=== PATIENT | female | born 1935 | race Caucasian/White ===

== ENCOUNTER 2018-09-17 09:23 | Inpatient (IN) | payer MEDICARE, BC ==
[2018-09-17] MEDS ORDERED: NS 0.9% 1000 ML* 1,000 ML IV ONE (09:54)
--- NOTE | 2018-09-17 10:02 | ED ---
Shortness of Breath - HPI Summary HPI Summary: This patient is a 83 year old female presenting to [facility] accompanied by family with a chief complaint of SOB since 2 weeks ago. Patient states that she feels fine when sitting down, but after walking for a little while, she starts having symptoms. On rest, the symptoms take 3-4 minutes to subside, but start again with exertion. The sensation is described as a fullness/tightness in chest, rather than a pain. The pain is rated 0/10 in severity. Symptoms aggravated by exertion/ambulation. Symptoms alleviated by nothing. Patient additionally reports bouts of nausea, fatigue. Patient denies vomiting, abd pain. Patient denies a hx of atrial fibrillation. - History of Current Complaint Chief Complaint: EDShortnessOfBreath Time Seen by Provider: 09/17/18 09:40 Hx Obtained From: Patient Onset/Duration: Gradual Onset, Still Present Timing: Constant Current Severity: None Dyspnea At: Exertion Aggrevating Factors: Other - exertion/ambulation Alleviating Factors: Nothing Associated Signs & Symptoms: Negative - vomiting, abd pain - Allergy/Home Medications Allergies/Adverse Reactions: Allergies Allergy/AdvReac Type Severity Reaction Status Date / Time lisinopril Allergy Unknown Verified 09/17/18 09:26 Reaction Details Home Medications: Home Medications Allopurinol 100 mg PO DAILY 09/17/18 [History Confirmed 09/17/18] Aspirin 81 mg CHEW TAB* [Aspirin Low Dose TAB*] 81 mg PO DAILY 09/17/18 [ History Confirmed 09/17/18] Atorvastatin* [Lipitor*] 40 mg PO 2100 09/17/18 [History Confirmed 09/17/18] Citalopram TAB* [CeleXA TAB*] 20 mg PO DAILY 09/17/18 [History Confirmed ] Irbesartan (NF) [Avapro (NF)] 300 mg PO DAILY 09/17/18 [History Confirmed ] Levothyroxine TAB* [Synthroid TAB*] 100 mcg PO DAILY 09/17/18 [History Confirmed 09/17/18] Metformin HCl [Metformin HCl ER] 500 mg PO BID 09/17/18 [History Confirmed 09/17] Metoprolol Succinate XL TAB* [Toprol XL TAB*] 50 mg PO DAILY 09/17/18 [History Confirmed 09/17/18] Terazosin CAP* [Hytrin CAP*] 5 mg PO BEDTIME 09/17/18 [History Confirmed ] PMH/Surg Hx/FS Hx/Imm Hx Previously Healthy: No Endocrine/Hematology History: Reports: Hx Diabetes - NIDDM, Hx Thyroid Disease - hypothyroid, Hx Anemia - HX OF Cardiovascular History: Reports: Hx Coronary Artery Disease - [address], Hx Hypertension, Other Cardiovascular Problems/Disorders - DIABETES Denies: Hx Pacemaker/ICD History: Reports: Hx Renal Disease - abnormal gfr Denies: Hx Dialysis Musculoskeletal History: Reports: Hx Arthritis - KNEES Sensory History: Reports: Hx Contacts or Glasses Denies: Hx Hearing Aid Opthamlomology History: Reports: Hx Contacts or Glasses Psychiatric History: Reports: Hx Depression Denies: Hx Panic Disorder - Surgical History Surgery Procedure, Year, and Place: CARDIAC STENT PT DOES NOT HAVE IMPLANT CARD. 1.5 ARTUR MAGNET. HYSTERECTOMY. L4L5 laminectory 2014 Hx Anesthesia Reactions: No Infectious Disease History: No Infectious Disease History: Denies: Traveled Outside the [place] in Last 30 Days - Family History Known Family History: Positive: Hypertension - Social History Lives: With Family Alcohol Use: None Hx Substance Use: No Substance Use Type: Reports: None Hx Tobacco Use: No Smoking Status (MU): Never Smoked Tobacco Review of Systems Positive: Fatigue. Negative: Fever Positive: Other - chest tightness Positive: Shortness Of Breath Positive: Nausea. Negative: Abdominal Pain, Vomiting All Other Systems Reviewed And Are Negative: Yes Physical Exam - Summary Physical Exam Summary: VITAL SIGNS: Reviewed. GENERAL: Patient is an obese female who is lying comfortable in the stretcher. Patient is not in any acute respiratory distress. HEAD AND FACE: No signs of trauma. No ecchymosis, hematomas or skull depressions. No sinus tenderness. EYES: PERRLA, EOMI x 2, No injected conjunctiva, no nystagmus. EARS: Hearing grossly intact. Ear canals and tympanic membranes are within normal limits. MOUTH: Oropharynx within normal limits. NECK: Supple, trachea is midline, no adenopathy, no JVD, no carotid bruit, no c- spine tenderness, neck with full ROM. CHEST: Symmetric, no tenderness at palpation LUNGS: Clear to auscultation bilaterally. No wheezing or crackles. CVS: Irregular rate and rhythm with tachycardia, S1 and S2 present. ABDOMEN: Soft, non-tender. No signs of distention. No rebound no guarding, and no masses palpated. Bowel sounds are normal. EXTREMITIES: FROM in all major joints, no edema, no cyanosis or clubbing. NEURO: Alert and oriented x 3. No acute neurological deficits. Speech is normal and follows commands. SKIN: Dry and warm Triage Information Reviewed: Yes Vital Signs On Initial Exam: Initial Vitals Temp Pulse Resp BP Pulse Ox 99 F 157 21 162/108 95 09/17/18 09:30 09/17/18 09:30 09/17/18 09:30 09/17/18 09:30 09/17/18 09:30 Vital Signs Reviewed: Yes Diagnostics - Vital Signs Vital Signs Temp Pulse Resp BP Pulse Ox 09/17/18 09:30 99 F 157 21 162/108 95 - Laboratory Result Diagrams: 09/17/18 09:44 09/17/18 09:44 Lab Statement: Any lab studies that have been ordered have been reviewed, and results considered in the medical decision making process. - Radiology CXR Radiology Interpretation Completed By: Radiologist Summary of Radiographic Findings: CXR reveals, per radiologist, IMPRESSION: CARDIOMEGALY. ED physician has reviewed this radiology report. - EKG 0936 Cardiac Rate: Tachycardia EKG Rhythm: Atrial Fibrillation - 152 BPM Summary of EKG Findings: A fib (152 BPM) with RBR. 0950 Cardiac Rate: Tachycardia EKG Rhythm: Atrial Fibrillation - 153 BPM Summary of EKG Findings: A fib (153 BPM) with RBR. Course/Dx - Course Assessment/Plan: This patient is a 83 year old female presenting to [facility] accompanied by family with a chief complaint of SOB since 2 weeks ago. Patient states that she feels fine when sitting down, but after walking for a little while, she starts having symptoms. On rest, the symptoms take 3-4 minutes to subside, but start again with exertion. The sensation is described as a fullness /tightness in chest, rather than a pain. The pain is rated 0/10 in severity. Symptoms aggravated by exertion/ambulation. Symptoms alleviated by nothing. Patient additionally reports bouts of nausea, fatigue. Patient denies vomiting, abd pain. Patient denies a hx of atrial fibrillation. Blood work without any significant abnormality except for microcytic hypochromic anemia, creatinine of 1.21, possibly due to dehydration, glucose of 118, lactic acid is 2.1, BNP 181, and TSH of 11.40. In the ED course the patient was given IV fluids, she was given Cardizem 20 mg bolus and the heart rate decreased however it went right back up. Therefore the patient was placed in a Cardizem drip. The patient at this time is more hemodynamically stable and she is alert and oriented 3. I discuss my physical exam, findings and test results with Dr. East from the hospitalist services and he agrees to admit patient to his services. Patient is hemodynamically stable alert and oriented x 3. - Diagnoses Differential Diagnosis/HQI/PQRI: Positive: Bronchitis, CHF, Chest Wall Pain, PR , Pneumonia, Other - SVT, atrial fibrillation, atrial flutter Provider Diagnoses: Atrial fibrillation with RVR Discharge - Sign-Out/Discharge Documenting (check all that apply): Patient Departure - Discharge Plan Condition: Stable Disposition: ADMITTED TO [facility] - Billing Disposition and Condition Condition: STABLE Disposition: Admitted to [facility] - Attestation Statements Document Initiated by Scribe: Yes Documenting Scribe: Estefani Murray Provider For Whom Elenie is Documenting (Include Credential): Semaj Richardson MD Scribe Attestation: I, Estefani Murray, scribed for Semaj Richardson MD on 09/17/18 at 1849. Scribe Documentation Reviewed: Yes Provider Attestation: The documentation as recorded by the Estefani parks accurately reflects the service I personally performed and the decisions made by me, Semaj Richardson MD
[2018-09-17] MEDS: Diltiazem IV* 5 MG/ML 5 ML VIAL (for loading dose/IV Push) (25 MG) IV SLOW PU ONE ×2 (10:03→10:11)
--- OUTSIDE RECORDS SUMMARY | 2018-09-17 10:05 | XMS REPORT | Continuity of Care Document ---
:1935 External Reference #:[id number] Author Name Sarah Maya O.D. Address [address] [place] [address] Care Team Providers Name Role Phone Kathy Forde M.D. Primary Care Physician Unavailable Payers Type Date Identification Numbers Payment Provider Subscriber Effective: Policy Number: [id number] Medicare - NGS Elvia Madison 2000 PayID: [id number] [address] [facility] [place] [address] Policy Number: [id number] [facility] Elvia Madison Group Number: [id number] [address] [address] PayID: [id number] YARITZA Mensah [address] Advance Directives Description No Information Available Problems Date Description Provider Status Onset: Type 2 diabetes mellitus Active Onset: Essential hypertension Active Onset: Hypercholesterolemia Active Onset: 09/10/2018 Nuclear senile cataract Sarah Maya O.D. Active Family History Date Family Member(s) Problem(s) Comments Father No Current Problems Mother No Current Problems Social History Type Date Description Comments Sex Unknown Marital Status Legal Status: Work Status Retired ETOH Use Denies alcohol use Tobacco Use Start: Unknown Patient has never smoked Recreational Drug Use Denies Drug Use Smoking Status Reviewed: 09/10/18 Patient has never smoked Allergies, Adverse Reactions, Alerts Description No Known Drug Allergies Medications Medication Date Status Form Strength Qnty SIG Indications Ordering Provider Allopurinol / Active Tablets 100mg Take One Unknown 0000 Tablet By Mouth Every Day Atorvastatin / Active Tablets 40mg Take One Unknown Calcium 0000 Tablet By Mouth Every Day Levothyroxine / Active Tablets 100mcg Take One Unknown Sodium 0000 Tablet By Mouth Every Day Irbesartan / Active Tablets 300mg Take One Unknown 0000 Tablet By Mouth Every Day Replaces Valsartan HCTZ Citalopram / Active Tablets 20mg Take One Unknown Hydrobromide 0000 Half Tablet By Mouth Every Day Metoprolol / Active Tablets ER 50mg Take One Unknown Succinate ER 0000 24HR Tablet By Mouth Every Day Terazosin HCL / Active Capsules 5mg Take One Unknown 0000 Capsule By Mouth Every Day Metformin HCL / Active Tablets 500mg Unknown 0000 Aspir-81 / Active Tablets DR 81mg 1 by mouth Unknown 0000 every other day Vitamin C / Active Capsules 500mg 1 by mouth Unknown 0000 every day Tylenol / Active Tablets 325mg as needed Unknown 0000 Immunizations Description No Information Available Vital Signs Description No Information Available Results Description No Information Available Procedures Description No Information Available Encounters Description No Information Available Plan of Treatment 09/10/2018 - Sarah Maya O.D.H25.13 Age-related nuclear cataract, bilateralComments:Smoking can increase the risk of developing or worsening any eye related disease, as well as affect your overall health. If you are a smoker , we strongly recommend that you quit.If you are not a smoker, we strongly recommend that you do not start. You have been diagnosed with cataracts. They are limiting your vision, and I am unable to improve your vision with new glasses. I am recommending you schedule cataract surgery at your earliest convenience. Please speak with Parris Spangler at to set up all necessary appointments. Parris Spangler will set up a preoperative appointment to get all of your measurements for surgery. We recommend that you write down any questions you may have so Dr. Meier or Dr. Black can address them at this appointment.Follow up:For preop exam before surgery.E11.9 Type 2 diabetes mellitus without complicationsComments:You have diabetes. I do not detect any changes in both of your retinas from diabetes at this time. Proper control of your diabetes is important for the health of your eyes. Changes in your eyes from diabetes can happen without symptoms, so it is important that you have your eyes examined.
[2018-09-17 10:15] LABS: ABS Basophils 0 10^3/ul (0-0.2); ABS Eosinophils 0.1 10^3/ul (0-0.6); ABS Lymphocytes 0.9 10^3/ul (1.0-4.8); ABS Monocytes 0.3 10^3/ul (0-0.8); ABS Neutrophils 3.7 10^3/ul (1.5-7.7); ABS Nucleated RBC 0 10^3/ul; Eosinophil % 2.2 % (0-6); Hematocrit 32 % (35-47); Hemoglobin 9.9 g/dl (12.0-16.0); Lymphocyte % 18.3 % (25-47); Mean Corpuscular HGB Conc 31 g/dl (31-36); Mean Corpuscular Hemoglobin 20 pg (27-31); Mean Corpuscular Volume 64 fL (80-97); Mean Platelet Volume 8.6 fL (7.4-10.4); Nucleated Red Blood Cells % 0.1; Platelet Count 176 10^3/ul (150-450); Red Blood Count 4.97 10^6/ul (4.00-5.40); Red Cell Distribution Width 20 % (10.5-15)
[2018-09-17 10:19] LABS: INR 1.01 (0.77-1.02)
[2018-09-17] MEDS ORDERED: Diltiazem DRIP* 100 MG/100 ML ADDV.BAG IVPB ONE (10:20)
[2018-09-17 10:27] LABS: EGFR Non-African American 42.5 (>60)
[2018-09-17] MEDS ORDERED: Furosemide IV* 10 MG/ML VIAL (40 MG) IV ONE (12:34)
[2018-09-17] MEDS ORDERED: Diltiazem IV VIAL* 125 MG in NS 0.9% 100 ML* 100 ML IV SCH (13:00)
[2018-09-17] MEDS: Apixaban* 5 MG TAB PO SCH ×2 (15:15→19:32)
[2018-09-17] MEDS: Metoprolol Tartrate TAB* 25 MG PO SCH ×2 (15:15→19:32)
--- NOTE | 2018-09-17 15:35 | HP ---
CC: Dr. Forde.* HISTORY AND PHYSICAL: DATE OF ADMISSION: 09/17/18. PRIMARY CARE PROVIDER: Dr. Forde. CHIEF COMPLAINT: Shortness of breath and chest tightness. HISTORY OF PRESENT ILLNESS: Ms. Madison is an 83-year-old female who has a history of coronary artery disease, hypertension, type 2 diabetes, who presented to the emergency room with complaints of shortness of breath and chest tightness. The patient states symptoms began approximately 2 weeks ago. She began to feel short of breath and fatigue. Additionally, her family noted that she has been having intermittent episodes of nausea. She has also been dizzy upon standing up. Initially the report was that the patient was feeling palpitation; however, in speaking with her she cannot feel her heart racing or fluttering, but feels the tightness off and on in her chest. She states she has felt this over the last few weeks as well. She states that she has not noticed her lower extremities be swollen any more than usual; however, her [id number] has. PAST MEDICAL HISTORY: 1. Coronary artery disease. 2. Hypertension. 3. OA. 4. Rosacea. 5. Type 2 diabetes. 6. Gout. PAST SURGICAL HISTORY: 1. Hysterectomy. 2. Appendectomy. 3. Lumbar diskectomy.. MEDICATIONS: 1. Metoprolol XL 50 mg p.o. daily. 2. Levothyroxine 75 mcg p.o. daily. 3. Lipitor 40 mg p.o. q.h.s. 4. Aspirin 81 mg p.o. daily. 5. Metformin 1000 mg p.o. b.i.d. 6. Valsartan/hydrochlorothiazide 320/12.5 one tablet p.o. daily. 7. Terazosin 5 mg p.o. q.h.s. 8. Omeprazole 20 mg p.o. daily. 9. Ibuprofen 600 mg p.o. q.6 hours p.r.n. pain. 10. Gabapentin 300 mg p.o. q.h.s. 11. Celexa 10 mg p.o. q.h.s. 12. Bumex 0.5 mg p.o. daily. ALLERGIES: LISINOPRIL causes cough. FAMILY HISTORY: Mom at age of 85, she had Parkinson's. Dad at the age of 55, he had an NE. Patient had 3 sisters and 1 brother all of who are from cancer. SOCIAL HISTORY: Patient is a lifelong nonsmoker. She drinks alcohol rarely. 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 She is . She has 5 children. She indicates that her [id number], Lavern Nielson, would be her healthcare proxy. REVIEW OF SYSTEMS: A complete 11-system review of systems is obtained. Pertinent positives and negatives are as per HPI. In addition patient denies any hematochezia or hematuria. She does however admit to depression. PHYSICAL EXAMINATION GENERAL: The patient is a well-developed, elderly female, seen sitting up in the stretcher in no acute distress. VITAL SIGNS: Blood pressure 121/93, pulse 143, respirations 34, temp 99, O2 sat 96% on 2 L. HEENT: Pupils are equal and round. Extraocular muscles are intact. Oropharynx is clear. Oral mucosa is moist. The patient wears upper and lower dentures. There is no submandibular, cervical, or supraclavicular adenopathy. PULMONARY: Breath sounds are clear throughout, but markedly diminished. CARDIAC: Normal S1 and S2. Heart rate is irregularly regular and tachycardic. There is 1+ bilateral lower extremity pitting edema. ABDOMEN: Bowel sounds are present. Abdomen is obese, soft, nontender, nondistended. MUSCULOSKELETAL: There is no cyanosis or clubbing of the digits. There is full active range of motion of all 4 extremities. NEURO: Cranial nerves II through XII are grossly intact. Sensation is intact to light touch throughout. Strength is 5/5 and symmetric both upper and lower extremities bilaterally. SKIN: Warm and dry. There are no rashes. PSYCH: The patient is alert. She is oriented x3. Affect appears appropriate. DIAGNOSTIC STUDIES/LAB DATA: WBC 5.0, hemoglobin 9.9, hematocrit 32, platelets 176. INR 1.01. Sodium 140, potassium 4.1, chloride 107, CO2 25, BUN 19, creatinine 1.21, glucose 118, lactic acid 2.1, calcium 9.5, magnesium 2.2, bilirubin 0.9, AST 13, ALT 10, alk phos 129. CPK 30. CKMB 1.7. Troponin 0.03. BNP 181. Albumin 3.9. TSH 11.4. EKG reveals atrial fibrillation with rapid ventricular response. Chest x-ray reveals cardiomegaly. ASSESSMENT AND PLAN: Ms. Madison is an 83-year-old female who has a history of coronary artery disease, hypertension and type 2 diabetes, who presents to the emergency room with complaints of shortness of breath and chest tightness. The patient was ultimately found to be in a rapid atrial fibrillation and likely congestive heart failure secondary to that. 1. Atrial fibrillation with rapid ventricular response. The patient is currently on a diltiazem drip at 15 mg/hour in the emergency room. This unfortunately has not controlled her heart rate. The patient does take metoprolol XL 50 mg daily at home. I am going to change this to metoprolol tartrate 25 mg p.o. q.8 hours. The patient will be attempted to be managed on this regimen; however, if her heart rate fails to come under control, we will likely request cardiology consultation for further guidance. A transthoracic echocardiogram will be obtained to evaluate the patient's ejection fraction. I will get a D-dimer and if negative this would have essentially ruled out PE; however, if positive, we will likely need a CTA of the chest to rule out PE as a cause of patient's AFib. Also of note, the patient's TSH is elevated at 11.4. I am adding on a free T4 to the labs drawn in the emergency room. After discussion of the risks and benefit of Coumadin versus Eliquis, at this point, the patient has elected to be initiated on Eliquis 5 mg twice daily. 2. Shortness of breath. I suspect this is secondary to congestive heart failure. The patient clearly has lower extremity edema. Her breath sounds are diminished throughout. As above the transthoracic echocardiogram will be obtained tomorrow. I am going to administer Lasix 40 mg IV x1 now. I am going to hold the patient's Bumex that she takes at home. Decision will need to be made tomorrow morning about whether or not IV diuretic will be continued. I questioned if she may have developed tachycardia induced cardiomyopathy. 3. Coronary artery disease. The patient does complain of chest tightness. I suspect this is related to her rapid AFib and likely CHF. The patient will need follow up troponins and EKG 3 hours after the initial. The patient will however be maintained on her usual dose of aspirin and Lipitor. 4. Hypertension. The patient's blood pressure is currently under good control. We will need to monitor her blood pressure with the addition of the diltiazem drip. I am going to continue her valsartan but hold her hydrochlorothiazide. In case, we need to go up on her metoprolol or other rate controlling agents. 5. Type 2 diabetes. The patient will be maintained on her usual dose of metformin. Lispro sliding scale and glucose as a.c., h.s. will be ordered. 6. Gout. The patient's family reports she has been on a medication as suppressant for this. This is not on her home medication list. I suspect, however, based on outside pharmacy records that it is in fact allopurinol 100 mg p.o. daily. 7. DVT prophylaxis. According to the Adult Thrombosis Risk Factor Assessment Guide, the patient has a total risk factor score of 5 making her highest risk. She will be placed on Eliquis 5 mg twice daily for her rapid AFib and this will act as her DVT prophylaxis. 8. Code status is DNR. TIME SPENT: Sixty-five minutes was spent admitting this patient. [id number]/[facility] #: [id number] AGUILA
[2018-09-17] MEDS ORDERED: Diltiazem DRIP* 100 MG/100 ML ADDV.BAG IVPB SCH (17:00)
[2018-09-17] MEDS: Atorvastatin* 40 MG TAB PO SCH (17:42)
[2018-09-17] MEDS ORDERED: CITALOPRAM HYDROBROMIDE 10 MG PO SCH (18:00)
[2018-09-17] MEDS: metFORMIN* 500 MG TAB PO SCH (19:32)
[2018-09-17] MEDS: Terazosin CAP* 5 MG PO SCH ×2 (19:33→19:56)
[2018-09-17] MEDS ORDERED: metFORMIN* 500 MG TAB PO SCH (21:00)
[2018-09-17] MEDS ORDERED: Gabapentin CAP(*) 300 MG PO SCH (21:00)
[2018-09-17 21:58] LABS: Urine Appearance Cloudy; Urine Blood 1+ (Negative); Urine Color Straw; Urine Ketones Negative (Negative); Urine Protein Negative (Negative); Urine Red Blood Cell 1+(3-5/hpf) (Absent); Urine Specific Gravity 1.006 (1.010-1.030); Urine Urobilinogen Negative (Negative); Urine White Blood Cell 3+(>20/hpf) (Absent)
[2018-09-17] MEDS: Melatonin 3 MG TAB PO SCH (23:49)
[2018-09-18] MEDS: Levothyroxine TAB* 100 MCG TAB PO SCH (04:53)
[2018-09-18] MEDS: Metoprolol Tartrate TAB* 25 MG PO SCH (04:55)
[2018-09-18] MEDS ORDERED: Omeprazole CAP* 20 MG PO SCH (07:30)
[2018-09-18] MEDS ORDERED: Levothyroxine TAB* 75 MCG TAB PO SCH (08:00)
[2018-09-18] MEDS ORDERED: Valsartan/HCTZ 320/12.5(NF) TAB PO SCH (09:00)
[2018-09-18] MEDS: Losartan TAB* 25 MG PO SCH (09:27)
[2018-09-18] MEDS: metFORMIN* 500 MG TAB PO SCH ×2 (09:28→20:58)
[2018-09-18] MEDS: Citalopram TAB* 20 MG PO SCH (09:28)
[2018-09-18] MEDS: Aspirin EC TAB* 81 MG TAB.EC PO SCH (09:28)
[2018-09-18] MEDS: Apixaban* 5 MG TAB PO SCH ×2 (09:28→20:58)
--- NOTE | 2018-09-18 12:19 | PN ---
Subjective Date of Service: 09/18/18 Interval History: Patient seen and examined. States she feels SOB still and pressure with inspiration across the front of her chest. Denies dizziness, no fevers or chills. Remains on O2 for comfort. Objective Active Medications: Apixaban (Eliquis*) 5 mg PO BID [facility] Last Admin: 09/18/18 09:28 Dose: 5 mg Aspirin (Aspirin Ec Tab*) 81 mg PO DAILY [facility] Last Admin: 09/18/18 09:28 Dose: 81 mg Atorvastatin Calcium (Lipitor*) 40 mg PO 1700 [facility] Last Admin: 09/17/18 17:42 Dose: 40 mg Citalopram Hydrobromide (Celexa Tab*) 20 mg PO DAILY [facility] Last Admin: 09/18/18 09:28 Dose: 20 mg Levothyroxine Sodium (Synthroid Tab*) 100 mcg PO DAILY@0600 [facility] Last Admin: 09/18/18 04:53 Dose: 100 mcg Losartan Potassium (Cozaar Tab*) 100 mg PO DAILY [facility] Last Admin: 09/18/18 09:27 Dose: 100 mg Melatonin (Melatonin) 3 mg PO BEDTIME [facility] Last Admin: 09/17/18 23:49 Dose: 3 mg Metformin HCl (Glucophage*) 500 mg PO BID [facility] Last Admin: 09/18/18 09:28 Dose: 500 mg Metoprolol Tartrate (Lopressor Tab*) 25 mg PO Q8H [facility] Last Admin: 09/18/18 04:55 Dose: 25 mg Terazosin HCl (Hytrin Cap*) 5 mg PO BEDTIME [facility] Last Admin: 09/17/18 19:56 Dose: Not Given Vital Signs - 8 hr 09/18/18 09/18/18 07:16 08:28 Temperature 98.1 F Pulse Rate 71 Respiratory 20 20 Rate Blood Pressure 104/66 (mmHg) O2 Sat by Pulse 100 Oximetry Oxygen Devices in Use Now: Nasal Cannula Appearance: alert, appears anxious Eyes: No Scleral Icterus, PERRLA Ears/Nose/Mouth/Throat: Mucous Membranes Moist Neck: NL Appearance and Movements; NL JVP, Trachea Midline Respiratory: - - diminished, mild ex wheeze, no rhonchi, moderate rales Abdominal: NL Sounds; No Tenderness; No Distention Lymphatic: No Cervical Adenopathy Extremities: No Clubbing, Cyanosis, - - bilat edema LE Skin: No Rash or Ulcers Neurological: Alert and Oriented x 3, NL Sensation Nutrition: Taking PO's Result Diagrams: 09/17/18 09:44 09/17/18 09:44 Diagnostic Imaging: Patient Name: ALDO SAHU Medical Record#: [id number] Ordering Physician: Semaj Richardson MD Acct.#: [id number] : 1935 Age: 83 Sex: F Location: EMERGENCY DEPARTMENT Exam Date: 09/17/18949 ADM Status: REG ER Order Information: CHEST AP PORTABLE Accession Number: [id number] CPT: 75909 HISTORY: SOB, CP COMPARISONS: March 22, 2014 VIEWS: 1: frontal AP view of the chest at 10:10 AM FINDINGS: LINES AND TUBES: None. CARDIOMEDIASTINAL SILHOUETTE: The cardiac silhouette is enlarged. The cardiomediastinal silhouette is otherwise normal for portable technique. PLEURA: The costophrenic angles are sharp. No pleural abnormalities are noted. LUNG PARENCHYMA: The lungs are clear. ABDOMEN: The upper abdomen is clear. There is no subphrenic gas. BONES AND SOFT TISSUES: No bone or soft tissue abnormalities are noted. IMPRESSION: CARDIOMEGALY <Electronically signed by Tato Ortiz MD in [place]> 09/17/181016 Dictated By: Tato Ortiz MD Dictated Date/Time: 09/17/181016 Transcribed Date/Time: 09/17/181016 Copy to: Assess/Plan/Problems-Billing Assessment: This is an 83 year old female with history CAD, HTN, DMII, gout and OA that presented to the ED with complaint of palpitations and SOB, found to be in afib with RVR and acute HF. - Patient Problems (1) Atrial fibrillation with rapid ventricular response Code(s): I48.91 - UNSPECIFIED ATRIAL FIBRILLATION SNOMED Code(s): 259163827829028 Comment: - Off cardizem drip last night, was rate controlled but BP was low - BB does not seem to be helping, as rate is increased again today 110s-120s - Will try cardizem 60mg q6h, as cardizem did seem to help with rate control yesterday - Pending ECHO, consider cardiology consult if any further findings or issues - Continue O2 and tele (2) Congestive heart failure Code(s): I50.9 - HEART FAILURE, UNSPECIFIED SNOMED Code(s): 02681952 Comment: - Diuresing with lasix - Strict I&Os - ECHO (3) History of coronary artery disease Code(s): Z86.79 - PERSONAL HISTORY OF OTHER DISEASES OF THE CIRCULATORY SYSTEM SNOMED Code(s): 964510825 Comment: - Likely the cause of her afib/failure - Pending ECHO, may need stress test tomorrow (4) Osteoarthritis Code(s): M19.90 - UNSPECIFIED OSTEOARTHRITIS, UNSPECIFIED SITE SNOMED Code(s) : 767795303 (5) DVT prophylaxis Code(s): MJO9717 - SNOMED Code(s): 688628374 Comment: - Eliquis started, tolerating well (6) DNR (do not resuscitate) Status and Disposition: Inpatient, dispo TBD
[2018-09-18] MEDS ORDERED: Furosemide IV* 10 MG/ML VIAL (40 MG) IV ONE (12:35)
[2018-09-18] MEDS: Diltiazem TAB* 60 MG PO SCH ×2 (12:50→17:15)
[2018-09-18] MEDS: Acetaminophen TAB* 325 MG PO PRN (15:21)
[2018-09-18] MEDS: cefTRIAXone(*) 1 GM in NS 0.9% 50 ML* 50 ML IVPB SCH (15:23)
[2018-09-18] MEDS: Atorvastatin* 40 MG TAB PO SCH (17:15)
[2018-09-18] MEDS: Melatonin 3 MG TAB PO SCH (20:57)
[2018-09-18] MEDS: Terazosin CAP* 5 MG PO SCH (21:06)
[2018-09-19] MEDS: Diltiazem TAB* 60 MG PO SCH ×3 (00:38→12:01)
[2018-09-19] MEDS: Levothyroxine TAB* 100 MCG TAB PO SCH (05:20)
[2018-09-19] MEDS: metFORMIN* 500 MG TAB PO SCH ×2 (08:23→21:58)
[2018-09-19] MEDS: Losartan TAB* 25 MG PO SCH (08:23)
[2018-09-19] MEDS: Apixaban* 5 MG TAB PO SCH ×2 (08:23→21:58)
[2018-09-19] MEDS: Aspirin EC TAB* 81 MG TAB.EC PO SCH (08:23)
[2018-09-19] MEDS: Citalopram TAB* 20 MG PO SCH (08:23)
--- NOTE | 2018-09-19 12:32 | ECHO ---
Patient: ALDO SAHU [facility] Rec#: [id number] : 1935 Date: 09/19/2018 Age: 83y Height: 170 cm / 66.9 in Weight: 99 kg / 218.2 lbs Sex: F BSA: 2.1 Room#: 444 Admit Date#: 09/17/2018 Type: Inpatient Referring: Zaina East DO Reading: Dwaine Vazquez DO Pear Picker: Jaquelin Mercedes,BERHANE,RDMS CC: Kathy Forde MD Transthoracic Echocardiogram Indication: EDEMA BP: 113/78 HR: 108 Rhythm: A-Fib Findings History: CAD, HTN,DM Technical Comments: The study quality is good. Left Ventricle: The left ventricular chamber size is normal. Mild concentric left ventricular hypertrophy is observed. Mild global hypokinesis of the left ventricle is observed. There is mildly decreased left ventricular systolic function. The estimated ejection fraction is 40-45%. The assessment of diastolic function is non-diagnostic. Left Atrium: The left atrium is moderate to severely dilated. Right Ventricle: The right ventricular chamber size and systolic function are within normal limits. Right Atrium: The right atrium is moderately dilated. Aortic Valve: The aortic valve is trileaflet. Systolic excursion of the aortic valve is normal. There is aortic annular calcification. There is a trace of aortic regurgitation. There is no evidence of aortic stenosis. Mitral Valve: Mild mitral annular calcification present. The mitral valve leaflets are mildly thickened. There is mild mitral regurgitation. There is no evidence of mitral stenosis. Tricuspid Valve: The tricuspid valve leaflets are normal. There is mild tricuspid regurgitation. No pulmonary hypertension is noted. Pulmonic Valve: The pulmonic valve appears normal. There is a trace pulmonic regurgitation. Pericardium: There is no significant pericardial effusion. Aorta: There is mild dilatation of the ascending aorta. There is no dilatation of the aortic arch. The aortic root is normal in size. Pulmonary Artery: The main pulmonary artery is not well visualized. Venous: The inferior vena cava is dilated. There is less than 50% respiratory change in the inferior vena cava dimension. Conclusions The left ventricular chamber size is normal. Mild concentric left ventricular hypertrophy is observed. Mild global hypokinesis of the left ventricle is observed. There is mildly decreased left ventricular systolic function. The estimated ejection fraction is 40-45%. The left atrium is moderate to severely dilated. The right ventricular chamber size and systolic function are within normal limits. No more than mild valvular regurgitation noted Patient is in atrial fibrillation at time of study. There is mild dilatation of the ascending aorta. None prior for comparison at time of interpretation. Measurements Name Value Normal Range RVIDd (AP) 2D 3 cm (0.9 - 2.6) RVDdMajor (2D) 3 cm (2.2 - 4.4) RAd ISD 4CH 6.1 cm (3.4 - 4.9) RA (A4C)W 4.2 cm (2.9 - 4.6) IVSd (2D) 1.5 cm (0.6 - 1) LVPWd (2D) 1.1 cm (0.6 - 1) LVIDd (2D) 4.6 cm (3.6 - 5.4) LVIDs (2D) 3.6 cm - LV FS (2D) 21 % (25 - 45) Aortic Annulus 2.5 cm (1.4 - 2.6) Ao root diameter (2D) 3.3 cm (2.1 - 3.5) Ascending Ao 4.2 cm (2.1 - 3.4) Aortic arch 3.1 cm (1.8 - 3.4) LA dimension (AP) 2D 4.3 cm (2.3 - 3.8) LAd ISD 4CH 6.5 cm (2.9 - 5.3) LA ISD 4CH W 5.9 cm (2.5 - 4.5) Name Value Normal Range LA ESV BP (A/L) index 49 ml/m2 - Name Value Normal Range MV E-wave Vmax 1.1 m/sec - MV deceleration time 140 msec - LV lateral e' Vmax 0.07 m/sec - LV E:e' lateral ratio 16 ratio - Name Value Normal Range AV Vmax 1.3 m/sec - AV peak gradient 7 mmHg - LVOT Vmax 0.8 m/sec - LVOT peak gradient 2.6 mmHg - STUART Vmax 0.5 m/sec - Name Value Normal Range MV Vmax 1.2 m/sec - MV VTI 24 cm - MV peak gradient 6 mmHg - MV mean gradient 2 mmHg - MV PHT 71 msec - MVA (PHT) 3.1 cm2 - Name Value Normal Range TR Vmax 2.4 m/sec - TR peak gradient 22 mmHg - RAP 8 mmHg - RVSP 30 mmHg - IVC diameter 2.5 cm - Name Value Normal Range PV Vmax 0.6 m/sec - PV peak gradient 1.4 mmHg -
[2018-09-19] MEDS ORDERED: Furosemide IV* 10 MG/ML VIAL (40 MG) IV SCH (15:00)
[2018-09-19] MEDS: cefTRIAXone(*) 1 GM in NS 0.9% 50 ML* 50 ML IVPB SCH (15:43)
[2018-09-19] MEDS: Acetaminophen TAB* 325 MG PO PRN (16:03)
--- NOTE | 2018-09-19 16:07 | CONSULT ---
Subjective Date of Service: 09/19/18 Interval History: Admission Date: 09/17/2018 Consult date 09/19/2018 PMD: Dr. Forde CHIEF COMPLAINT: Shortness of breath and chest tightness. Reason for consult: CHF, rapid afib/flutter HISTORY OF PRESENT ILLNESS: Ms. Madison is an 83-year-old woman with a history as below who presents with about a month of progressive dyspnea and tightness when breathing. She last 2 weeks has been markedly worse. She doesn't really describe a palpitations symptoms. She was found with rapid intermittent afib/flutter and CHF LVEF 40-45% . She was rate controlled and diuresed and feels much better with no tightness or dyspnea although hasn't ambulate much in the hospital. She uses a cane and walker at home. She denies any syncope or symptoms similar to her [place] which she described as indigestion/substernal discomfort. Her thiazide and loop diuretic bumex was d/c'd this summer due to gout. We talked about rhythm control options such as cardioversion and she would not be interested in that. Her daughter and daughter's significant other is at bedside. PAST MEDICAL HISTORY: 1. Coronary artery disease, AWMI 08/2000 s/p thrombolytics, single vessel disease had velocity stent to single vessel mid LAD culprit, echo at that time LVEF normal with apical septal and apical WMA 2. Hypertension. 3. OA. 4. Rosacea. 5. Type 2 diabetes. 6. Gout. 7. Chronic microcytic anemia, has thalassemia listed as diagnosis 8. Hypothyroidism PAST SURGICAL HISTORY: 1. Hysterectomy. 2. Appendectomy. 3. Lumbar diskectomy.. ALLERGIES: LISINOPRIL causes cough. FAMILY HISTORY: Mom at age of 85, she had Parkinson's. Dad at the age of 55, he had an [place]. Patient had 3 sisters and 1 brother all of who are from cancer. SOCIAL HISTORY: Patient is a lifelong nonsmoker. She drinks alcohol rarely. 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 She is . She has 5 children. She indicates that her [id number], Lavern Nielson, would be her healthcare proxy. Medications Active Medications: Acetaminophen (Tylenol Tab*) 650 mg PO Q6H PRN PRN Reason: fever or pain Last Admin: 09/18/18 15:21 Dose: 650 mg Apixaban (Eliquis*) 5 mg PO BID [facility] Last Admin: 09/19/18 08:23 Dose: 5 mg Aspirin (Aspirin Ec Tab*) 81 mg PO DAILY [facility] Last Admin: 09/19/18 08:23 Dose: 81 mg Atorvastatin Calcium (Lipitor*) 40 mg PO 1700 [facility] Last Admin: 09/18/18 17:15 Dose: 40 mg Citalopram Hydrobromide (Celexa Tab*) 20 mg PO DAILY [facility] Last Admin: 09/19/18 08:23 Dose: 20 mg Diltiazem HCl (Cardizem Cd Cap*) 120 mg PO DAILY [facility] Furosemide (Lasix Iv*) 40 mg IV DAILY [facility] Last Admin: 09/19/18 15:43 Dose: 40 mg Ceftriaxone Sodium 1 gm/ (Sodium Chloride) 50 mls @ 200 mls/hr IVPB Q24H [facility] Last Admin: 09/19/18 15:43 Dose: 200 mls/hr Levothyroxine Sodium (Synthroid Tab*) 125 mcg PO DAILY@0600 [facility] Losartan Potassium (Cozaar Tab*) 100 mg PO DAILY [facility] Last Admin: 09/19/18 08:23 Dose: 100 mg Melatonin (Melatonin) 3 mg PO BEDTIME [facility] Last Admin: 09/18/18 20:57 Dose: 3 mg Metformin HCl (Glucophage*) 500 mg PO BID [facility] Last Admin: 09/19/18 08:23 Dose: 500 mg Metoprolol Succinate (Toprol Xl Tab*) 50 mg PO DAILY [facility] Home Medications: Allopurinol 100 mg PO DAILY 09/17/18 [History Confirmed 09/17/18] Aspirin 81 mg CHEW TAB* [Aspirin Low Dose TAB*] 81 mg PO DAILY 09/17/18 [ History Confirmed 09/17/18] Atorvastatin* [Lipitor*] 40 mg PO 2100 09/17/18 [History Confirmed 09/17/18] Citalopram TAB* [CeleXA TAB*] 20 mg PO DAILY 09/17/18 [History Confirmed ] Irbesartan (NF) [Avapro (NF)] 300 mg PO DAILY 09/17/18 [History Confirmed ] Levothyroxine TAB* [Synthroid TAB*] 100 mcg PO DAILY 09/17/18 [History Confirmed 09/17/18] Metformin HCl [Metformin HCl ER] 500 mg PO BID 09/17/18 [History Confirmed 09/17] Metoprolol Succinate XL TAB* [Toprol XL TAB*] 50 mg PO DAILY 09/17/18 [History Confirmed 09/17/18] Terazosin CAP* [Hytrin CAP*] 5 mg PO BEDTIME 09/17/18 [History Confirmed ] Review of Systems - Measurements Intake and Output: Intake and Output Last 24 Hours 09/17/18 09/18/18 09/19/18 09/20/18 06:59 06:59 06:59 06:59 Intake Total 240 1200 1320 Output Total 750 100 Balance 879 476 9649 Weight 218 lb 223 lb 1.6 oz Intake: Oral 240 1200 1320 Output: Urine 750 100 Other: Estimated Void Large Date of Last Bowel 09/18/2018 Movement # Bowel Movements 0 0 # Voids 2 2 1 - Review of Systems Constitutional Symptoms: Positive: Weight Loss, Weakness Dermatology: Negative: Rash, Skin Lesions HEENT: Negative: Change in Hearing, Vertigo Eyes: Negative: Change in Vision, Double Vision Thyroid: Negative: Cold Intolerance, Heat Intolerance, Tremor, Frequent Defecation, Constipation, Palpitations, Primary Hypothyroidism, Primary Hyperthyroidism, Weight Loss, Weight Gain, Change in Skin/Hair, Change in Menstration, Radiation Exposure, Other Pulmonary: Positive: Respiratory Distress, Shortness of Breath, Exercise Intolerance Cardiology: Positive: Chest Pain, Shortness of Breath Negative: Palpitations, Swelling of Ankles, Peripheral Vascular Dis, Edema, Faintness, Syncope, Claudication, Paroxysmal Nocturnal Dyspnea, Orthopnea Gastroenterology: Negative: Nausea, Vomiting, Anorexia, Blood in Stools, Haematemesis, Melena Genital - Urinary: Negative: Dysuria, Hematuria Musculoskeletal: Negative: Joint Pain, Joint Stiffness Endocrinology: Positive: Obesity, Diabetes Negative: Polydipsia, Polyuria Hematologic/Lymphatic: Positive: Anemia, Use of Antiplatelet Drugs Negative: Use of Anticoagulant Neurology: Negative: Dizziness, Change in Walking, Hx of Stroke\TIA, Hx Seizures Psychiatry: Negative: Unusual Anxiety, Suicidal Ideation Allergic/Immunologic: Negative: Hx Anaphylaxis, Hx Angioedema, Hx HIV, Immunocompromise Review of Systems Statement: All other review of systems negative, unless stated above. Objective Vital Signs: Temp Pulse Resp BP Pulse Ox 97.4 F 60 20 118/74 100 09/19/18 11:50 09/19/18 11:50 09/19/18 11:50 09/19/18 11:50 09/19/18 11:50 Oxygen Devices in Use Now: Nasal Cannula Appearance: obese, nad Ears/Nose/Mouth/Throat: Clear Oropharnyx, Mucous Membranes Moist Neck: Trachea Midline, - - uncertain jvp Respiratory: Symmetrical Chest Expansion and Respiratory Effort, Clear to Auscultation Cardiovascular: No Edema, - - irregularly irreuglar, no significant murmur Extremities: No Edema, No Clubbing, Cyanosis Skin: No Rash or Ulcers Neurological: Alert and Oriented x 3 Laboratory Results: 09/17/18 09:44 09/17/18 09:44 INR (Anticoag Therapy) 1.01 (0.77-1.02) 09/17/18 09:44 APTT 28.4 seconds (26.0-36.3) 09/17/18 09:44 Total Bilirubin 0.90 mg/dL (0.2-1.0) 09/17/18 09:44 AST 13 U/L (13-39) 09/17/18 09:44 ALT 10 U/L (7-52) 09/17/18 09:44 Alkaline Phosphatase 129 U/L (34-104) H 09/17/18 09:44 CK-MB (CK-2) 1.7 ng/mL (0.6-6.3) 09/17/18 09:44 B-Natriuretic Peptide 181 pg/mL (<=100) H 09/17/18 09:44 Total Protein 6.5 g/dL (6.4-8.9) 09/17/18 09:44 Albumin 3.9 g/dL (3.2-5.2) 09/17/18 09:44 Globulin 2.6 g/dL (2-4) 09/17/18 09:44 Albumin/Globulin Ratio 1.5 (1-3) 09/17/18 09:44 TSH 11.40 mcIU/mL (0.34-5.60) H 09/17/18 09:44 09/17/18 09/17/18 09/17/18 09:44 12:57 16:33 Troponin I 0.03 0.03 0.03 Diagnostic Imaging: Echo 09/19/2018: LVEF 40-45% with global LV hypokinesis and mod-severe LA dilation, no more than mild valvular regurgitation noted CXR 09/17/2018: enlarged cardiac silhouette, lungs clear EKG Data: Admission EKG: Rapid afib 150 bpm,non-specific st/t changes Telemetry: Reverts between atrial fibrillation and flutter, rate controlled last 24 hours. Assessment/Plan 1. CHF, LVEF 40-45%, global hypokinesis - Ruled out for ACS - Suspect tachycardia related 2. Rapid AFib, [id number] score at least 5 - Also aflutter on monitor 3. History of [place], CAD/PCI 1999 4. Microcytic anemia, chronic - Thalasemia by history 4. Co-morbidities as above including but not limited to obesity, DM, gout and depression - Continue eliquis 5 mg po bid - Stop aspirin with stable CAD (ordered) - Continue statin - Continue oral rate control, preferentially increase home toprol dosing given cardiomyopathy although diltiazem also ok - Diuresis will also help with rate control. Can either use lasix 20 mg po daily or can use 0.5 mg of bumex oral at discharge (she was on latter up until June). I do not think after todays IV lasix dose she needs any more diuresis although I would repeat a BMP with IV diuresis - Will arrange cardiology followup, she has declined rhythm control attempt, will repeat a limited echo after at least a month of good rate control. If LVEF does not normalize will also pursue an ischemic evaluation. - Patient lives alone and she was using a walker even before this admission. She needs to ambulate supervised a lot before being discharged Thank you for allowing me to participate in the cardiovascular care of this patient. Please do not hesitate to contact me with questions or concerns.
--- NOTE | 2018-09-19 17:07 | PN ---
Subjective Date of Service: 09/19/18 Interval History: Patient seen and examined. Still feeling SOB today with mild exertion. Denies chest pain, no fevers or chills, no further complaints. Family at bedside. Objective Active Medications: Acetaminophen (Tylenol Tab*) 650 mg PO Q6H PRN PRN Reason: fever or pain Last Admin: 09/19/18 16:03 Dose: 650 mg Apixaban (Eliquis*) 5 mg PO BID [facility] Last Admin: 09/19/18 08:23 Dose: 5 mg Atorvastatin Calcium (Lipitor*) 40 mg PO 1700 [facility] Last Admin: 09/18/18 17:15 Dose: 40 mg Citalopram Hydrobromide (Celexa Tab*) 20 mg PO DAILY [facility] Last Admin: 09/19/18 08:23 Dose: 20 mg Diltiazem HCl (Cardizem Cd Cap*) 120 mg PO DAILY [facility] Furosemide (Lasix Tab*) 20 mg PO DAILY [facility] Ceftriaxone Sodium 1 gm/ (Sodium Chloride) 50 mls @ 200 mls/hr IVPB Q24H [facility] Last Admin: 09/19/18 15:43 Dose: 200 mls/hr Levothyroxine Sodium (Synthroid Tab*) 125 mcg PO DAILY@0600 [facility] Losartan Potassium (Cozaar Tab*) 100 mg PO DAILY [facility] Last Admin: 09/19/18 08:23 Dose: 100 mg Melatonin (Melatonin) 3 mg PO BEDTIME [facility] Last Admin: 09/18/18 20:57 Dose: 3 mg Metformin HCl (Glucophage*) 500 mg PO BID [facility] Last Admin: 09/19/18 08:23 Dose: 500 mg Metoprolol Succinate (Toprol Xl Tab*) 50 mg PO DAILY [facility] Vital Signs - 8 hr 09/19/18 11:50 Temperature 97.4 F Pulse Rate 60 Respiratory 20 Rate Blood Pressure 118/74 (mmHg) O2 Sat by Pulse 100 Oximetry Oxygen Devices in Use Now: Nasal Cannula Appearance: alert, NAD Eyes: No Scleral Icterus, PERRLA Ears/Nose/Mouth/Throat: NL Teeth, Lips, Gums, Mucous Membranes Moist Neck: NL Appearance and Movements; NL JVP, Trachea Midline Respiratory: Symmetrical Chest Expansion and Respiratory Effort, - - diminished bases, rales bilaterally improving Cardiovascular: NL Sounds; No Murmurs; No JVD, - - edema improved, HR irregular , remains in fib/flutter Abdominal: NL Sounds; No Tenderness; No Distention Extremities: No Clubbing, Cyanosis Skin: No Rash or Ulcers Neurological: Alert and Oriented x 3, - - ambulates with walker Nutrition: Taking PO's Result Diagrams: 09/17/18 09:44 09/17/18 09:44 Microbiology and Other Data: Microbiology 09/17/18 21:35 Urine Culture - Final Urine Escherichia Coli Diagnostic Imaging: Patient Name: ALDO SAHU Medical Record#: [id number] Ordering Physician: Semaj Richardson MD Acct.#: [id number] : 1935 Age: 83 Sex: F Location: EMERGENCY DEPARTMENT Exam Date: 09/17/18949 ADM Status: REG ER Order Information: CHEST AP PORTABLE Accession Number: [id number] CPT: 70567 HISTORY: SOB, CP COMPARISONS: March 22, 2014 VIEWS: 1: frontal AP view of the chest at 10:10 AM FINDINGS: LINES AND TUBES: None. CARDIOMEDIASTINAL SILHOUETTE: The cardiac silhouette is enlarged. The cardiomediastinal silhouette is otherwise normal for portable technique. PLEURA: The costophrenic angles are sharp. No pleural abnormalities are noted. LUNG PARENCHYMA: The lungs are clear. ABDOMEN: The upper abdomen is clear. There is no subphrenic gas. BONES AND SOFT TISSUES: No bone or soft tissue abnormalities are noted. IMPRESSION: CARDIOMEGALY <Electronically signed by Tato Ortiz MD in [place]> 09/17/181016 Dictated By: Tato Ortiz MD Dictated Date/Time: 09/17/181016 Transcribed Date/Time: 09/17/181016 Copy to: Assess/Plan/Problems-Billing Assessment: This is an 83 year old female with history CAD, HTN, DMII, gout and OA that presented to the ED with complaint of palpitations and SOB, found to be in afib with RVR and acute HF. - Patient Problems (1) Atrial fibrillation with rapid ventricular response Code(s): I48.91 - UNSPECIFIED ATRIAL FIBRILLATION SNOMED Code(s): 704852662476247 Comment: - ECHO as above - Rate respoinding better to cardizem, however ECHO with LV dysfunction, will place back on BB and decrease cardizem - Cardiology consult appreciated, patient declines cardioversion - Continue O2 and tele (2) Congestive heart failure Code(s): I50.9 - HEART FAILURE, UNSPECIFIED SNOMED Code(s): 23161226 Comment: - Diuresing with lasix, change to PO tomorrow - Strict I&Os - Will hopefully resolve with rate control and diuretics (3) History of coronary artery disease Code(s): Z86.79 - PERSONAL HISTORY OF OTHER DISEASES OF THE CIRCULATORY SYSTEM SNOMED Code(s): 964402128 Comment: - Likely the cause of her afib/failure - Recs per cardiology, will need outpatient follow up (4) Osteoarthritis Code(s): M19.90 - UNSPECIFIED OSTEOARTHRITIS, UNSPECIFIED SITE SNOMED Code(s) : 063077515 (5) DVT prophylaxis Code(s): YOL6913 - SNOMED Code(s): 003878946 Comment: - Eliquis started, tolerating well (6) DNR (do not resuscitate) Status and Disposition: Inpatient, dispo TBD, PT consult and reassess.
[2018-09-19] MEDS: Atorvastatin* 40 MG TAB PO SCH (17:12)
--- NOTE | 2018-09-19 18:16 | CONSULT ---
Medications Active Medications: Acetaminophen (Tylenol Tab*) 650 mg PO Q6H PRN PRN Reason: fever or pain Last Admin: 09/18/18 15:21 Dose: 650 mg Apixaban (Eliquis*) 5 mg PO BID [facility] Last Admin: 09/19/18 08:23 Dose: 5 mg Aspirin (Aspirin Ec Tab*) 81 mg PO DAILY [facility] Last Admin: 09/19/18 08:23 Dose: 81 mg Atorvastatin Calcium (Lipitor*) 40 mg PO 1700 [facility] Last Admin: 09/18/18 17:15 Dose: 40 mg Citalopram Hydrobromide (Celexa Tab*) 20 mg PO DAILY [facility] Last Admin: 09/19/18 08:23 Dose: 20 mg Diltiazem HCl (Cardizem Cd Cap*) 120 mg PO DAILY [facility] Furosemide (Lasix Iv*) 40 mg IV DAILY [facility] Last Admin: 09/19/18 15:43 Dose: 40 mg Ceftriaxone Sodium 1 gm/ (Sodium Chloride) 50 mls @ 200 mls/hr IVPB Q24H [facility] Last Admin: 09/19/18 15:43 Dose: 200 mls/hr Levothyroxine Sodium (Synthroid Tab*) 125 mcg PO DAILY@0600 [facility] Losartan Potassium (Cozaar Tab*) 100 mg PO DAILY [facility] Last Admin: 09/19/18 08:23 Dose: 100 mg Melatonin (Melatonin) 3 mg PO BEDTIME [facility] Last Admin: 09/18/18 20:57 Dose: 3 mg Metformin HCl (Glucophage*) 500 mg PO BID [facility] Last Admin: 09/19/18 08:23 Dose: 500 mg Metoprolol Succinate (Toprol Xl Tab*) 50 mg PO DAILY [facility] Home Medications: Allopurinol 100 mg PO DAILY 09/17/18 [History Confirmed 09/17/18] Aspirin 81 mg CHEW TAB* [Aspirin Low Dose TAB*] 81 mg PO DAILY 09/17/18 [ History Confirmed 09/17/18] Atorvastatin* [Lipitor*] 40 mg PO 2100 09/17/18 [History Confirmed 09/17/18] Citalopram TAB* [CeleXA TAB*] 20 mg PO DAILY 09/17/18 [History Confirmed ] Irbesartan (NF) [Avapro (NF)] 300 mg PO DAILY 09/17/18 [History Confirmed ] Levothyroxine TAB* [Synthroid TAB*] 100 mcg PO DAILY 09/17/18 [History Confirmed 09/17/18] Metformin HCl [Metformin HCl ER] 500 mg PO BID 09/17/18 [History Confirmed 09/17] Metoprolol Succinate XL TAB* [Toprol XL TAB*] 50 mg PO DAILY 09/17/18 [History Confirmed 09/17/18] Terazosin CAP* [Hytrin CAP*] 5 mg PO BEDTIME 09/17/18 [History Confirmed ] Review of Systems - Measurements Intake and Output: Intake and Output Last 24 Hours 09/17/18 09/18/18 09/19/18 09/20/18 06:59 06:59 06:59 06:59 Intake Total 240 1200 1320 Output Total 750 100 Balance 754 215 5169 Weight 218 lb 223 lb 1.6 oz Intake: Oral 240 1200 1320 Output: Urine 750 100 Other: Estimated Void Large Date of Last Bowel 09/18/2018 Movement # Bowel Movements 0 0 # Voids 2 2 1 - Review of Systems Review of Systems Statement: All other review of systems negative, unless stated above. Objective Vital Signs: Temp Pulse Resp BP Pulse Ox 97.4 F 60 20 118/74 100 09/19/18 11:50 09/19/18 11:50 09/19/18 11:50 09/19/18 11:50 09/19/18 11:50 Oxygen Devices in Use Now: Nasal Cannula Laboratory Results: 09/17/18 09:44 09/17/18 09:44 INR (Anticoag Therapy) 1.01 (0.77-1.02) 09/17/18 09:44 APTT 28.4 seconds (26.0-36.3) 09/17/18 09:44 Total Bilirubin 0.90 mg/dL (0.2-1.0) 09/17/18 09:44 AST 13 U/L (13-39) 09/17/18 09:44 ALT 10 U/L (7-52) 09/17/18 09:44 Alkaline Phosphatase 129 U/L (34-104) H 09/17/18 09:44 CK-MB (CK-2) 1.7 ng/mL (0.6-6.3) 09/17/18 09:44 B-Natriuretic Peptide 181 pg/mL (<=100) H 09/17/18 09:44 Total Protein 6.5 g/dL (6.4-8.9) 09/17/18 09:44 Albumin 3.9 g/dL (3.2-5.2) 09/17/18 09:44 Globulin 2.6 g/dL (2-4) 09/17/18 09:44 Albumin/Globulin Ratio 1.5 (1-3) 09/17/18 09:44 TSH 11.40 mcIU/mL (0.34-5.60) H 09/17/18 09:44 09/17/18 09/17/18 09/17/18 09:44 12:57 16:33 Troponin I 0.03 0.03 0.03
[2018-09-19] MEDS: Melatonin 3 MG TAB PO SCH (21:59)
[2018-09-19] MEDS ORDERED: Metoprolol Tartrate IV* 1 MG/ML 5 ML VIAL IV PRN (23:01)
[2018-09-20] MEDS ORDERED: Digoxin IV* 0.5 MG/2 ML AMP (0.25 MG/ML) IV SLOW PU ONE (02:23)
[2018-09-20] MEDS: Acetaminophen TAB* 325 MG PO PRN ×3 (03:27→20:59)
--- NOTE | 2018-09-20 03:57 | PN ---
Progress Note - Progress Note Date of Service: 09/20/18 Note: Patient in rapid atrial flutter - going up to and sustaining in 150's. Started lopressor 5 mg IV q4 hour prn and loaded on digoxin which did help but is sustaining in 120s. Will start Cardizem 5 mg/hr
[2018-09-20] MEDS ORDERED: Diltiazem IV VIAL* 125 MG in NS 0.9% 100 ML* 100 ML IV SCH (04:30)
[2018-09-20] MEDS: Levothyroxine TAB* 125 MCG TAB PO SCH (05:32)
[2018-09-20] MEDS: Apixaban* 5 MG TAB PO SCH ×2 (09:57→20:58)
[2018-09-20] MEDS: Furosemide TAB* 20 MG PO SCH (09:57)
[2018-09-20] MEDS: metFORMIN* 500 MG TAB PO SCH ×2 (09:57→20:59)
[2018-09-20] MEDS: Metoprolol Succinate XL TAB* 50 MG PO SCH (09:57)
[2018-09-20] MEDS: Citalopram TAB* 20 MG PO SCH (09:57)
[2018-09-20] MEDS: Diltiazem CD CAP* 120 MG PO SCH (11:06)
[2018-09-20] MEDS: Losartan TAB* 25 MG PO SCH (11:06)
[2018-09-20] MEDS: cefTRIAXone(*) 1 GM in NS 0.9% 50 ML* 50 ML IVPB SCH (14:59)
[2018-09-20] MEDS: Atorvastatin* 40 MG TAB PO SCH (17:23)
--- NOTE | 2018-09-20 19:28 | PN ---
Subjective Date of Service: 09/20/18 Interval History: Patient with Rapid afib with RVR over night started cardizem drip - rate improved this AM. Denies chest pain or shortness of breath. Denies abd pain n/ v/d. denies headache or dizziness Family History: Unchanged from Admission Social History: Unchanged from Admission Past Medical History: Unchanged from Admission Objective Active Medications: Acetaminophen (Tylenol Tab*) 650 mg PO Q6H PRN PRN Reason: fever or pain Last Admin: 09/20/18 12:01 Dose: 650 mg Apixaban (Eliquis*) 5 mg PO BID [facility] Last Admin: 09/20/18 09:57 Dose: 5 mg Atorvastatin Calcium (Lipitor*) 40 mg PO 1700 [facility] Last Admin: 09/20/18 17:23 Dose: 40 mg Citalopram Hydrobromide (Celexa Tab*) 20 mg PO DAILY [facility] Last Admin: 09/20/18 09:57 Dose: 20 mg Diltiazem HCl (Cardizem Cd Cap*) 120 mg PO DAILY [facility] Last Admin: 09/20/18 11:06 Dose: 120 mg Furosemide (Lasix Tab*) 20 mg PO DAILY [facility] Last Admin: 09/20/18 09:57 Dose: 20 mg Ceftriaxone Sodium 1 gm/ (Sodium Chloride) 50 mls @ 200 mls/hr IVPB Q24H [facility] Last Admin: 09/20/18 14:59 Dose: 200 mls/hr Levothyroxine Sodium (Synthroid Tab*) 125 mcg PO DAILY@0600 [facility] Last Admin: 09/20/18 05:32 Dose: 125 mcg Losartan Potassium (Cozaar Tab*) 100 mg PO DAILY [facility] Last Admin: 09/20/18 11:06 Dose: 100 mg Melatonin (Melatonin) 3 mg PO BEDTIME [facility] Last Admin: 09/19/18 21:59 Dose: 3 mg Metformin HCl (Glucophage*) 500 mg PO BID [facility] Last Admin: 09/20/18 09:57 Dose: 500 mg Metoprolol Succinate (Toprol Xl Tab*) 50 mg PO DAILY [facility] Last Admin: 09/20/18 09:57 Dose: 50 mg Metoprolol Tartrate (Lopressor Iv*) 5 mg IV Q4HR PRN PRN Reason: HEART RATE/PULSE Last Admin: 09/19/18 23:21 Dose: 5 mg Vital Signs - 8 hr 09/20/18 15:01 Temperature 97.6 F Pulse Rate 74 Respiratory 20 Rate Blood Pressure 131/81 (mmHg) O2 Sat by Pulse 100 Oximetry Oxygen Devices in Use Now: Nasal Cannula Eyes: No Scleral Icterus Ears/Nose/Mouth/Throat: Clear Oropharnyx, Mucous Membranes Moist Neck: NL Appearance and Movements; NL JVP, Trachea Midline Respiratory: Symmetrical Chest Expansion and Respiratory Effort, Clear to Auscultation Cardiovascular: NL Sounds; No Murmurs; No JVD, No Edema, - - irregular rate Abdominal: NL Sounds; No Tenderness; No Distention Extremities: No Edema, No Clubbing, Cyanosis Skin: No Rash or Ulcers Neurological: Alert and Oriented x 3 Nutrition: Taking PO's Result Diagrams: 09/21/18 05:38 09/21/18 05:38 Microbiology and Other Data: Microbiology 09/17/18 21:35 Urine Culture - Final Urine Escherichia Coli Diagnostic Imaging: Patient Name: ALDO SAHU Medical Record#: [id number] Ordering Physician: Semaj Richardson MD Acct.#: [id number] : 1935 Age: 83 Sex: F Location: EMERGENCY DEPARTMENT Exam Date: 09/17/18949 ADM Status: REG ER Order Information: CHEST AP PORTABLE Accession Number: [id number] CPT: 22484 HISTORY: SOB, CP COMPARISONS: March 22, 2014 VIEWS: 1: frontal AP view of the chest at 10:10 AM FINDINGS: LINES AND TUBES: None. CARDIOMEDIASTINAL SILHOUETTE: The cardiac silhouette is enlarged. The cardiomediastinal silhouette is otherwise normal for portable technique. PLEURA: The costophrenic angles are sharp. No pleural abnormalities are noted. LUNG PARENCHYMA: The lungs are clear. ABDOMEN: The upper abdomen is clear. There is no subphrenic gas. BONES AND SOFT TISSUES: No bone or soft tissue abnormalities are noted. IMPRESSION: CARDIOMEGALY <Electronically signed by Tato Ortiz MD in [place]> 09/17/18 1017 Dictated By: Tato Ortiz MD Dictated Date/Time: 09/17/181016 Transcribed Date/Time: 09/17/181016 Copy to: Assess/Plan/Problems-Billing Assessment: This is an 83 year old female with history CAD, HTN, DMII, gout and OA that presented to the ED with complaint of palpitations and SOB, found to be in afib with RVR and acute HF. - Patient Problems (1) Atrial fibrillation with rapid ventricular response Status: Acute Code(s): I48.91 - UNSPECIFIED ATRIAL FIBRILLATION SNOMED Code( s): 972194824068055 Comment: - ECHO as above - Rate respoinding better to cardizem, however ECHO with LV dysfunction, will place back on BB and continue cardizem- will try to increase beta julio if BP will allow to 75 mg daily - can decrease lostartan if needed to increase beta- julio - Cardiology consult appreciated, patient declines cardioversion - Continue O2 and tele (2) Congestive heart failure Status: Acute Code(s): I50.9 - HEART FAILURE, UNSPECIFIED SNOMED Code(s): 56768604 Comment: - Diuresing with lasix, change continue with PO - Strict I&Os - Will hopefully resolve with rate control and diuretics (3) DVT prophylaxis Status: Acute Code(s): UKJ6862 - SNOMED Code(s): 561679038 Comment: - Eliquis started, tolerating well (4) History of coronary artery disease Status: Acute Code(s): Z86.79 - PERSONAL HISTORY OF OTHER DISEASES OF THE CIRCULATORY SYSTEM SNOMED Code(s): 816789709 Comment: - Likely the cause of her afib/failure - Recs per cardiology, will need outpatient follow up (5) DNR (do not resuscitate) Status: Acute Status and Disposition: Inpatient, dispo TBD, PT consult and reassess.
[2018-09-20] MEDS: Melatonin 3 MG TAB PO SCH (20:58)
[2018-09-21 06:00] LABS: ABS Basophils 0 10^3/ul (0-0.2); ABS Eosinophils 0.2 10^3/ul (0-0.6); ABS Lymphocytes 1.4 10^3/ul (1.0-4.8); ABS Monocytes 0.4 10^3/ul (0-0.8); ABS Neutrophils 3.8 10^3/ul (1.5-7.7); ABS Nucleated RBC 0 10^3/ul; Eosinophil % 3.3 % (0-6); Hematocrit 30 % (35-47); Hemoglobin 9.4 g/dl (12.0-16.0); Lymphocyte % 23.7 % (25-47); Mean Corpuscular HGB Conc 31 g/dl (31-36); Mean Corpuscular Hemoglobin 20 pg (27-31); Mean Corpuscular Volume 64 fL (80-97); Mean Platelet Volume 8.7 fL (7.4-10.4); Nucleated Red Blood Cells % 0; Platelet Count 170 10^3/ul (150-450); Red Blood Count 4.75 10^6/ul (4.00-5.40); Red Cell Distribution Width 20 % (10.5-15); White Blood Count 5.8 10^3/ul (3.5-10.8)
[2018-09-21] MEDS: Levothyroxine TAB* 125 MCG TAB PO SCH (06:07)
[2018-09-21 06:19] LABS: EGFR Non-African American 44.2 (>60)
[2018-09-21] MEDS: metFORMIN* 500 MG TAB PO SCH (09:00)
[2018-09-21] MEDS: Diltiazem CD CAP* 120 MG PO SCH (09:00)
[2018-09-21] MEDS: Apixaban* 5 MG TAB PO SCH (09:01)
[2018-09-21] MEDS: Citalopram TAB* 20 MG PO SCH (09:01)
[2018-09-21] MEDS: Metoprolol Succinate XL TAB* 50 MG PO SCH (09:01)
[2018-09-21] MEDS: Furosemide TAB* 20 MG PO SCH (09:01)
[2018-09-21] MEDS: Losartan TAB* 25 MG PO SCH (09:02)
[2018-09-21] MEDS ORDERED: Magnesium Sulfate 1 GM IV* 1 GM/100 ML BAG IV ONE (09:54)
[2018-09-21 11:39] VITALS: BP 133/84
--- NOTE | 2018-09-25 22:22 | DS ---
CC: Dr. Kathy Forde * DISCHARGE SUMMARY: DATE OF ADMISSION: 09/17/18 DATE OF DISCHARGE: 09/21/18 PROVIDER: Marilyn Matson NP ATTENDING PHYSICIAN: Dr. Yenny Abernathy * (dictated by Marilyn Matson NP) PRIMARY CARE PROVIDER: Dr. Kathy Forde. PRIMARY DIAGNOSES: 1. Atrial fibrillation. 2. Congestive heart failure. 3. Hypomagnesemia. 4. Elevated thyroid level. SECONDARY DIAGNOSES: 1. Coronary artery disease. 2. Hypertension. 3. Osteoarthritis. 4. Rosacea. 5. Type 2 diabetes. 6. Gout. STUDIES COMPLETED WHILE IN THE HOSPITAL: She had a transthoracic echocardiogram on . Radiologist's conclusion: The left ventricular chamber is normal size, mild concentric left ventricular hypertrophy is observed. There is mild global hypokinesis of the left ventricle. There is mildly decreased left ventricular systolic function, the estimated ejection fraction is 40% to 45%, the left atrium is moderate to severely dilated, the right ventricle chamber size and systolic function were within normal limits. There is no more than mild valvular regurgitation noted. The patient is in atrial fibrillation. At the time of study, there is mild dilation of the ascending aorta. She had a chest x-ray on 09/17/18. Radiologist's impression: Cardiomegaly. She had an electrocardiogram on 09/19/18, which showed atrial fibrillation at a rate of 137. She had an electrocardiogram on 09/17/18, which also showed atrial fibrillation at a rate of 153. DISCHARGE MEDICATIONS: 1. Eliquis 5 mg p.o. b.i.d. 2. Diltiazem 120 mg p.o. daily. 3. Furosemide 20 mg p.o. daily. 4. Levothyroxine 125 mcg p.o. daily; this was increased. Continued home medications: 1. Allopurinol 100 mg p.o. daily. 2. Atorvastatin 40 mg p.o. daily. 3. Citalopram 20 mg p.o. daily. 4. Irbesartan 300 mg p.o. daily. 5. Metformin 500 mg p.o. b.i.d. 6. Metoprolol 50 mg p.o. daily. HISTORY OF PRESENT ILLNESS AND HOSPITAL COURSE: Ms. Madison is an 83-year-old female with a past medical history significant for coronary artery disease, diabetes, hypothyroidism, who presented to the emergency room with complaint of shortness of breath and chest tightness. The patient states her symptoms started 2 weeks prior to her admission to the hospital. She reports that she had been feeling shortness of breath with fatigue. The patient initially reported that she was feeling palpitations and also had noted that her lower extremities had been more swollen than usual. While in the emergency room, the patient was found to be in rapid atrial fibrillation and was started on a Cardizem drip. Her rate was controlled with the Cardizem. She was seen in consultation by Cardiology, who recommended continuing with Eliquis 5 mg p.o. b.i.d., stopping aspirin, continuing with the statin, continuing oral rate control, preferably increasing Toprol dosing given the cardiomyopathy, although diltiazem is also okay. Diuresis will also help with rate control, can use Lasix 20 mg p.o. daily, or can use 0.5 mg Bumex orally at discharge. She was on this medication up until latter part of June. She will need cardiology followup. She declined rhythm control attempt. We will repeat limited echo after at least a month of good rate control. If LVEF does not normalize, we will pursue ischemic evaluation. While in the hospital, the patient to be placed on Cardizem drip, when her Cardizem was attempted to wean, so the patient's Cardizem p.o. was restarted. After the Cardizem drip was discontinued, the rate remained controlled. The patient had no further symptoms. She denied any dizziness. She denied any weakness. The patient reports that she is feeling well at this time, she is stable for discharge home. The patient will be discharged home. Vital signs are as follows: Temperature was 98.3, heart rate 66, respirations 16, O2 saturation 98% on room air, blood pressure was 133/84. DISCHARGE PLAN: Ms. Madison will be discharged back home. Activity as tolerated. She should continue on a heart-healthy, low-sodium diet. 1. Atrial fibrillation. She was placed on Cardizem CD 120 mg p.o. daily. She should continue this medication. She should continue metoprolol 50 mg p.o. daily. She should continue on Eliquis 5 mg p.o. b.i.d. She should also continue on Lasix 20 mg p.o. daily. 2. Congestive heart failure. She should continue on Lasix 20 mg p.o. daily and metoprolol. 3. Elevated thyroid level. The patient's levothyroxine was increased to 125 mcg p.o. daily. She should continue on this dose and have a repeat TSH in 4 weeks. She should follow up with her primary care provider in regards to this finding. The patient should also resume all of her previous medications. She should stop her aspirin 81 mg p.o. daily. The patient should follow up with her primary care provider in 4 to 7 days. She should follow up with Dr. Vazquez within 1 month for repeat echocardiogram in evaluation of rate control. The patient was instructed to return to the emergency room for any chest pain, shortness of breath, dizziness, or syncope or any other concerning symptoms. This is a summarization of her hospitalization. For further details, please see the entire medical record. TIME SPENT: Time spent on this discharge was approximately 60 minutes, greater than half of that time was spent with the patient discussing discharge plans and instructions. CONDITION ON DISCHARGE: Stable. MARILYN MATSON NP [id number]/[facility] #: [id number] AGUILA
== END 2018-09-21 13:20 | disposition home or self-care (01) | DRG 310 ==
LOC: ED 09:23 → MEDTELE 12:22
PROVIDERS: ADMIT Hospitalist; ATTEND Internal Medicine
DX: I48.91 Unspecified atrial fibrillation (principal); I11.0 Hypertensive heart disease with heart failure; I50.9 Heart failure, unspecified; E83.42 Hypomagnesemia; E11.9 Type 2 diabetes mellitus without complications; I25.10 Atherosclerotic heart disease of native coronary artery without angina pectoris; D50.9 Iron deficiency anemia, unspecified; E66.9 Obesity, unspecified; Z66 Do not resuscitate; M10.9 Gout, unspecified; F32.9 Major depressive disorder, single episode, unspecified; M19.90 Unspecified osteoarthritis, unspecified site; R94.6 Abnormal results of thyroid function studies; L71.9 Rosacea, unspecified; Z68.34 Body mass index [BMI] 34.0-34.9, adult; Z98.61 Coronary angioplasty status; Z79.84 Long term (current) use of oral hypoglycemic drugs; Z79.1 Long term (current) use of non-steroidal anti-inflammatories (NSAID); Z79.82 Long term (current) use of aspirin; Z79.899 Other long term (current) drug therapy; Z88.8 Allergy status to other drugs, medicaments and biological substances; Z82.49 Family history of ischemic heart disease and other diseases of the circulatory system; Z80.9 Family history of malignant neoplasm, unspecified
CPT/HCPCS: 36415; 71045; 80048; 80053; 81003; 81015; 82550; 82553; 83605; 83735; 83880; 84439; 84443; 84484; 85025; 85610; 85730; 87077; 87086; 87186; 93005; 93306; 99284; A9270-GY; G8978-GP-CI; G8979-GP-CI; G8980-GP-CI; G8987-GO-CI; G8988-GO-CI; G8989-GO-CI; J0696; J1160; J1940; J3475; J3490

== ENCOUNTER 2018-09-28 12:30 | Inpatient (IN) | payer MEDICARE, BC ==
--- OUTSIDE RECORDS SUMMARY | 2018-09-28 12:36 | XMS REPORT | Continuity of Care Document ---
:1935 External Reference #:[id number] Author Name Yanira Vale Care Team Providers Name Role Phone Kathy Forde MD Primary Care Physician Unavailable Payers Type Date Identification Numbers Payment Provider Subscriber Policy Number: [id number] Medicare Elvia Madison PayID: [id number] [address] [place] [address] Policy Number: [id number] [facility] Elvia Madison PayID: [id number] [address] [address] [place] [address] Advance Directives Description No Information Available Problems Date Description Provider Status Onset: 03/19/2014 Displacement of lumbar intervertebral Nir Echavarria M.D. 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 Active Onset: 04/29/2018 Stented coronary artery Kathy Forde M.D. Active Note: 2000 Family History Date Family Member(s) Problem(s) Comments General Anemia Thalassemia General Diabetes General Arthritis, Osteo Father Tuberculosis : (age 51 Father due to [place] Years) : (age 85 Mother due to Parkinsons Years) Disease First Brother due to Prostate () Cancer First Sister due to Breast () - also Cancer stomach CA Second Sister due to Lung () - smoker Cancer Third Sister due to Melanoma () Social History Type Date Description Comments Sex Unknown Marital Status Lives With [facility]one [facility] [employer] apartment Occupation Retired ETOH Use Denies alcohol use Tobacco Use Start: Unknown Patient has never smoked Recreational Drug Use Denies Drug Use Smoking Status Reviewed: 09/23/18 Patient has never smoked Exercise Type/Frequency Does not exercise Allergies, Adverse Reactions, Alerts Description No Known Drug Allergies Medications Medication Date Status Form Strength Qnty SIG Indications Ordering Provider Irbesartan 06/20/ Active Tablets 300mg 90tab 1 by mouth I10 Kathy 2018 s every day Any Forde Allopurinol 06/20/ Active Tablets 100mg 30tab 1 by mouth M10.00 Kathy 2018 s every day Any Forde Metoprolol / Active Tablets ER 50mg 90tab 1 by mouth Kathy Succinate ER 0000 24HR s every day Any Forde Citalopram / Active Tablets 20mg 45tab 1/2 by Kathy Hydrobromide 0000 s mouth Maurisio every day Any Atorvastatin / Active Tablets 40mg 90tab 1 by mouth Kathy Calcium 0000 s every day Any Forde Metformin HCL / Active Tablets ER 500mg 180ta 2 by mouth Kathy ER 0000 24HR bs every day Any Forde Levothyroxine / Active Tablets 125mcg 90tab 1 by mouth Kathy Sodium 0000 s every day nAy Forde Diltiazem CD / Active Caps ER 120mg 1 by mouth Unknown 0000 24HR every day Furosemide / Active Tablets 20mg 1 by mouth Unknown 0000 every day Eliquis / Active Tablets 5mg 180ta 1 by mouth Kathy 0000 bs twice a Cotton, day M.DRosina Colcrys 05/12/ Hx Tablets 0.6mg 14tab take 1 M79.672 Kathy 2017 - s tablet Maurisio 09/22/ twice a M.DRosina 2017 day as needed Hydrocodone-Anthony 05/09/ Hx Tablets 5-325mg 20tab 1 by mouth Kathy taminophen 2017 - s three Cotton, 09/22/ times a M.D. 2018 day as needed Tramadol HCL 05/09/ Hx Tablets 50mg 60tab 1-2 Kathy 2018 - s tablets Cotton, 05/09/ every 6 M.D. 2018 hours as needed Diclofenac 05/05/ Hx Gel 1% 100un apply 4 Kathy Sodium 2018 - its grams to [place], 09/22/ the foot 4 M.D. 2018 times a day Prednisone 04/29/ Hx Tablets 10mg 20tab 4 tabs by Kathy 2018 - s mouth days [place], 1-2; 3 M.D. 2018 tabs by mouth on days 3-4, 2 tabs by mouth on days 5-6, 1 tab by mouth days 7-8 Levothyroxine 01/26/ Hx Tablets 100mcg 90tab 1 by mouth Giselle Sodium 2017 - s every day Julien, MENTAL HEALTH NURSE 2018 Allopurinol 07/29/ Hx Tablets 300mg 1 by mouth Giselle 2017 - every day Julien, MENTAL HEALTH NURSE 2018 Metronidazole 07/29/ Hx Gel 0.75% 25g 5 grams Giselle 2017 - once daily Julien, 07/29/ vaginally MENTAL HEALTH NURSE 2017 x's 5 days Metronidazole 07/29/ Hx Gel 1% 60gm apply Giselle 2016 - daily as Julien, 09/22/ needed MENTAL HEALTH NURSE 2018 Levothyroxine / Hx Tablets 75mcg 90tab 1 by mouth Kathy Sodium - s every day [place], 01/26/ M.D. 2017 Sammy Aspirin / Hx Tablets DR 81mg 100ta 1 by mouth Unknown Ec Low Dose 0000 - bs every day 2017 Valsartan-[place] / Hx Tablets 320-12.5mg 90tab 1 by mouth I10 Kathy chlorothiazide - s every day [place], 06/20/ M.D. 2017 Bumetanide / Hx Tablets 1mg 90tab 1/2 by Kathy 0000 - s mouth [place], 09/22/ every day M.D. 2017 K-Tab / Hx Tablets ER 10Meq 90tab 1 tab by Kathy 0000 - s mouth [place], every day. M.D. 2017 Terazosin HCL / Hx Capsules 5mg 90cap 1 by mouth Kathy 0000 - s every day Cotton, M.D. 2017 Oxycodone-Aceta / Hx Tablets 5-325mg 80tab take 1 Unknown minophen 0000 - s tablet by 2016 every 4 hours as needed pain Gabapentin / Hx Capsules 300mg 270ca 1 by mouth Unknown 0000 - ps at bedtime 2016 Prednisone 00/ Hx Tablets 5mg 70tab take as Unknown 0000 - s directed 2013 Omeprazole / Hx Capsules 20mg 90cap 1 by mouth Unknown 0000 - DR s every day 2016 Ibuprofen / Hx Tablets 200mg 100ta as needed Unknown 0000 - bs 2017 Immunizations CPT Code Status Date Vaccine Reaction Lot # [id number] Given 06/20/2018 Pneumococcal Conjugate [id number] Vaccine 13 Valent For Intramuscular Use [id number] Given 07/29/2017 Influenza Virus Vaccine, no immediate reaction, [id number] Quadrivalent, Split, pt tolerated well Preservative Free Vital Signs Date Vital Result Comment 09/23/2018 1:32pm Height 66.5 inches 5'6.50" Weight 224.00 lb Heart Rate 84 /min BP Systolic Sitting 132 mmHg BP Diastolic Sitting 82 mmHg O2 % BldC Oximetry 94 % BMI (Body Mass Index) 35.6 kg/m2 06/20/2018 3:55pm Height 66.5 inches 5'6.50" Weight 220.00 lb Heart Rate 56 /min BP Systolic Sitting 133 mmHg BP Diastolic Sitting 72 mmHg O2 % BldC Oximetry 98 % BMI (Body Mass Index) 35.0 kg/m2 05/12/2018 4:04pm Height 66.5 inches 5'6.50" Weight 220.00 lb Heart Rate 86 /min BP Systolic Sitting 131 mmHg BP Diastolic Sitting 82 mmHg Body Temperature 98.8 F O2 % BldC Oximetry 98 % BMI (Body Mass Index) 35.0 kg/m2 04/29/2018 9:45am Height 66.5 inches 5'6.50" Weight 221.00 lb Heart Rate 80 /min BP Systolic Sitting 141 mmHg BP Diastolic Sitting 83 mmHg O2 % BldC Oximetry 96 % BMI (Body Mass Index) 35.1 kg/m2 01/26/2018 9:40am Weight 222.00 lb Heart Rate 70 /min BP Systolic 140 mmHg BP Diastolic 74 mmHg Body Temperature 97.3 F O2 % BldC Oximetry 97 % 07/29/2017 10:54am Height 67.25 inches 5'7.25" Weight 232.50 lb Heart Rate 108 /min BP Systolic 138 mmHg BP Diastolic 84 mmHg Body Temperature 97.8 F O2 % BldC Oximetry 96 % BMI (Body Mass Index) 36.1 kg/m2 04/30/2014 1:27pm Height 67.25 inches 5'7.25" Weight 224.00 lb Heart Rate 72 /min BP Systolic Sitting 118 mmHg BP Diastolic Sitting 70 mmHg Pain Level 0 BMI (Body Mass Index) 34.8 kg/m2 04/09/2014 3:04pm Weight 224.25 lb Heart Rate 68 /min BP Systolic Sitting 124 mmHg BP Diastolic Sitting 68 mmHg Body Temperature 98.4 F O2 % BldC Oximetry 91 % 03/19/2014 1:07pm Height 65.5 inches 5'5.50" Weight 224.00 lb BP Systolic 144 mmHg BP Diastolic 82 mmHg Pain Level 10 left hip and leg BMI (Body Mass Index) 36.7 kg/m2 Results Test Date Facility Test Result H/L Range Note Urine Culture And 09/17/2018 [facility] Urine Culture SEE RESULT [address] [place] [address] [phone] Urinalysis Profile 09/17/2018 [facility] Urine Color Straw [address] [place] [address] [phone] Urine Appearance Cloudy Urine Specific [place] 1.006 Low 1.010-1.030 Urine pH 5.0 N 5-9 Urine Urobilinogen Negative Negative Urine Ketones Negative Negative Urine Protein Negative Negative Urine Leukocytes 3+ Abnormal Negative Urine Blood 1+ Abnormal Negative Urine Nitrite Negative Negative Urine Bilirubin Negative Negative Urine Glucose Negative Negative Urine White Blood Cell 3+(>20/hpf) Abnormal Absent Urine Red Blood Cell 1+(3-5/hpf) Abnormal Absent Urine Bacteria 3+ Abnormal Absent Laboratory test 09/17/2018 [facility] TSH (Thyroid 11.40 High 0.34-5.[address] Stim Horm) mcIU/[place] [address] [phone] Free T4 (Free Thyroxine) 0.89 ng/dL N 0.61-1.12 CKMB 09/17/2018 [facility] CKMB ng/mL 1.7 ng/mL N 0.6-6.3 [address] [place] [address] [phone] Laboratory test 09/17/2018 [facility] Magnesium 2.2 mg/dL N 1.9-2.7 finding [address] [place] [address] [phone] Creatine Kinase(CK) 30 U/L N 10-223 Troponin-I (TnI) 0.03 ng/mL <0.04 Comp Metabolic Panel 09/17/2018 [facility] Sodium 140 mmol/L N 135-145 [address] [place] [address] [phone] Potassium 4.1 mmol/L N 3.5-5.0 Chloride 107 mmol/L N 101-111 Co2 Carbon Dioxide 25 mmol/L N 22-32 Anion Gap 8 mmol/L N 2-11 Glucose 118 mg/dL High 70-100 Blood Urea Nitrogen 19 mg/dL N 6-24 Creatinine 1.21 mg/dL High 0.51-0.95 BUN/Creatinine Ratio 15.7 N 8-20 Calcium 9.5 mg/dL N 8.6-10.3 Total Protein 6.5 g/dL N 6.4-8.9 Albumin 3.9 g/dL N 3.2-5.2 Globulin 2.6 g/dL N 2-4 Albumin/Globulin Ratio 1.5 N 1-3 Total Bilirubin 0.90 mg/dL N 0.2-1.0 Alkaline Phosphatase 129 U/L High 34-104 Alt 10 U/L N 7-52 Ast 13 U/L N 13-39 Egfr Non- 42.5 >60 Egfr 51.4 >60 2 Laboratory test 09/17/2018 [facility] Lactic Acid 2.1 mmol/L High 0.5-2.0 3 finding [address] [place] [address] [phone] B-Type Natriuretic Peptide BNP 181 pg/mL High <=100 CBC Auto Diff 09/17/2018 [facility] White Blood 5.0 10^3/uL N 3.5-10.[address] [place] [address] [phone] Red Blood Count 4.97 10^6/uL N 4.00-5.40 Hemoglobin 9.9 g/dL Low 12.0-16.0 Hematocrit 32 % Low 35-47 Mean Corpuscular Volume 64 fL Low 80-97 Mean Corpuscular Hemoglobin 20 pg Low 27-31 Mean Corpuscular HGB Conc 31 g/dL N 31-36 Red Cell Distribution Width 20 % High 10.5-15 Platelet Count 176 10^3/uL N 150-450 Mean Platelet Volume 8.6 fL N 7.4-10.4 Abs Neutrophils 3.7 10^3/uL N 1.5-7.7 Abs Lymphocytes 0.9 10^3/uL Low 1.0-4.8 Abs Monocytes 0.3 10^3/uL N 0-0.8 Abs Eosinophils 0.1 10^3/uL N 0-0.6 Abs Basophils 0 10^3/uL N 0-0.2 Abs Nucleated RBC 0 10^3/uL Granulocyte % 73.6 % N 38-83 Lymphocyte % 18.3 % Low 25-47 Monocyte % 5.3 % N 0-7 Eosinophil % 2.2 % N 0-6 Basophil % 0.6 % N 0-2 Nucleated Red Blood Cells % 0.1 Laboratory test 09/17/2018 [facility] Partial 28.4 seconds N 26.0-36.[address] [place] [address] PTT [phone] Inr/Protime 09/17/2018 [facility] Inr 1.01 N 0.77-1.[address] [place] [address] [phone] Laboratory test 09/17/2018 [facility] Troponin-I 0.03 ng/mL < 0.[address] (TnI) [place] [address] [phone] Basic Metabolic 07/16/2018 [facility] Sodium 141 mmol/L N 135- [address] [place] [address] [phone] Potassium 4.0 mmol/L N 3.5-5.0 Chloride 105 mmol/L N 101-111 Co2 Carbon Dioxide 27 mmol/L N 22-32 Anion Gap 9 mmol/L N 2-11 Glucose 90 mg/dL N 70-100 Blood Urea Nitrogen 20 mg/dL N 6-24 Creatinine 1.32 mg/dL High 0.51-0.95 BUN/Creatinine Ratio 15.2 N 8-20 Calcium 9.2 mg/dL N 8.6-10.3 Egfr Non- 38.4 >60 Egfr 46.5 >60 4 Laboratory test 04/29/2018 [facility] Hemoglobin A1c 6.1 % High 4.0-5.6 [address] (Glyco HGB) [place] [address] [phone] Comp Metabolic 04/29/2018 [facility] Sodium 139 N 135-[address] mmol/[place] [address] [phone] Potassium 4.0 mmol/L N 3.5-5.0 Chloride 98 mmol/L Low 101-111 Co2 Carbon Dioxide 30 mmol/L N 22-32 Anion Gap 11 mmol/L N 2-11 Glucose 105 mg/dL High 70-100 Blood Urea Nitrogen 18 mg/dL N 6-24 Creatinine 1.27 mg/dL High 0.51-0.95 BUN/Creatinine Ratio 14.2 N 8-20 Calcium 10.0 mg/dL N 8.6-10.3 Total Protein 6.8 g/dL N 6.4-8.9 Albumin 4.2 g/dL N 3.2-5.2 Globulin 2.6 g/dL N 2-4 Albumin/Globulin Ratio 1.6 N 1-3 Total Bilirubin 0.80 mg/dL N 0.2-1.0 Alkaline Phosphatase 149 U/L High 34-104 Alt 9 U/L N 7-52 Ast 15 U/L N 13-39 Egfr Non- 40.2 >60 Egfr 48.6 >60 6 Urine Microalbumin 04/29/2018 [facility] Ur Microalbumin 35.9 mg /L Random [address] (mg/L) [place] [address] [phone] Urine Creatinine 193.83 mg/dL Urine Microalbumin/Creatinine 18.5 ug/mg N <31 Laboratory test 04/29/2018 [facility] TSH (Thyroid 3.97 mcIU/mL N 0.34-5.[address] Stim Horm) [place] [address] [phone] CBC Auto Diff 04/29/2018 [facility] White Blood 6.9 10^3/uL N 3.5-10.[address] [place] [address] [phone] Red Blood Count 5.41 10^6/uL High 4.00-5.40 Hemoglobin 11.2 g/dL Low 12.0-16.0 Hematocrit 36 % N 35-47 Mean Corpuscular Volume 67 fL Low 80-97 Mean Corpuscular Hemoglobin 21 pg Low 27-31 Mean Corpuscular HGB Conc 31 g/dL N 31-36 Red Cell Distribution Width 18 % High 10.5-15 Platelet Count 257 10^3/uL N 150-450 Mean Platelet Volume 9.0 um3 N 7.4-10.4 Abs Neutrophils 5.0 10^3/uL N 1.5-7.7 Abs Lymphocytes 1.3 10^3/uL N 1.0-4.8 Abs Monocytes 0.4 10^3/uL N 0-0.8 Abs Eosinophils 0.2 10^3/uL N 0-0.6 Abs Basophils 0.1 10^3/uL N 0-0.2 Abs Nucleated RBC 0 10^3/uL Granulocyte % 71.7 % N 38-83 Lymphocyte % 19.1 % Low 25-47 Monocyte % 6.1 % N 0-7 Eosinophil % 2.3 % N 0-6 Basophil % 0.8 % N 0-2 Nucleated Red Blood Cells % 0 Iron & Iron Binding 04/29/2018 [facility] Iron 33 g/dL Low 50-[address] [place] [address] [phone] Unsaturated Iron Binding 395 g/dL Total Iron Binding Capacity 428 g/dL N 250-450 Transferrin 306 mg/dL N 203-362 % Iron Saturation 8 % Low 15-55 Laboratory test 04/29/2018 [facility] D Dimer 786 ng/mL High Less [address] Quantitative Than [address] [place] [address] [phone] B-Type Natriuretic Peptide BNP 184 pg/mL High 8 Cell Morphology 04/29/2018 [facility] Microcytosis 2+ [address] [place] [address] [phone] Hypochromasia 2+ Elliptocyte 1+ Acanthocytes 1+ Laboratory test 01/08/2018 [facility] TSH (Thyroid 7.10 High 0.34-5.[address] Stim Horm) mcIU/[place] [address] [phone] Hemoglobin A1c (Glyco HGB) 6.3 % High 4.0-5.6 9 Lipid Profile 01/08/2018 [facility] Triglycerides 120 mg/dL 10 (Trig/Chol/HDL) [address] [place] [address] [phone] Cholesterol 181 mg/dL 11 HDL Cholesterol 52.4 mg/dL 12 LDL Cholesterol 105 mg/dL 13 Comp Metabolic Panel 01/08/2018 [facility] Sodium 138 mmol/L N 133-[address] [place] [address] [phone] Potassium 3.9 mmol/L N 3.5-5.0 Chloride 101 mmol/L N 101-111 Co2 Carbon Dioxide 30 mmol/L N 22-32 Anion Gap 7 mmol/L N 2-11 Glucose 95 mg/dL N 70-100 Blood Urea Nitrogen 37 mg/dL High 6-24 Creatinine 1.42 mg/dL High 0.51-0.95 BUN/Creatinine Ratio 26.1 High 8-20 Calcium 9.6 mg/dL N 8.6-10.3 Total Protein 6.5 g/dL N 6.4-8.9 Albumin 4.1 g/dL N 3.2-5.2 Globulin 2.4 g/dL N 2-4 Albumin/Globulin Ratio 1.7 N 1-3 Total Bilirubin 0.50 mg/dL N 0.2-1.0 Alkaline Phosphatase 108 U/L High 34-104 Alt 11 U/L N 7-52 Ast 18 U/L N 13-39 Egfr Non- 35.4 >60 Egfr 45.5 >60 14 Laboratory test 11/13/2017 [facility] TSH (Thyroid 1.18 mcIU/mL N 0.34-5.60 15 finding [address] [place]) [place] [address] [phone] Hemoglobin A1c (Glyco HGB) 6.2 % High 4.0-5.6 16 Comp Metabolic Panel 11/13/2017 [facility] Sodium 137 mmol/L N 133-[address] [place] [address] [phone] Potassium 3.7 mmol/L N 3.5-5.0 Chloride 98 mmol/L Low 101-111 Co2 Carbon Dioxide 31 mmol/L N 22-32 Anion Gap 8 mmol/L N 2-11 Glucose 85 mg/dL N 70-100 Blood Urea Nitrogen 27 mg/dL High 6-24 Creatinine 1.29 mg/dL High 0.51-0.95 BUN/Creatinine Ratio 20.9 High 8-20 Calcium 9.4 mg/dL N 8.6-10.3 Total Protein 6.4 g/dL N 6.4-8.9 Albumin 3.9 g/dL N 3.2-5.2 Globulin 2.5 g/dL N 2-4 Albumin/Globulin Ratio 1.6 N 1-3 Total Bilirubin 0.60 mg/dL N 0.2-1.0 Alkaline Phosphatase 128 U/L High 34-104 Alt 16 U/L N 7-52 Ast 22 U/L N 13-39 Egfr Non- 39.6 >60 Egfr 50.9 >60 17 Lipid Profile 11/13/2017 [facility] Triglycerides 217 mg/dL 18 (Trig/Chol/HDL) [address] [place] [address] [phone] Cholesterol 184 mg/dL 19 HDL Cholesterol 56.5 mg/dL 20 LDL Cholesterol 84 mg/dL 21 CBC No Diff 03/22/2014 [facility] White Blood 9.1 10^3/uL N 4.8-10.[address] [place] [address] [phone] Red Blood Count 5.01 10^6/uL N 4.0-5.4 Hemoglobin 10.5 g/dL Low 12.0-16.0 Hematocrit 33 % Low 35-47 Mean Corpuscular Volume 65 fL Low 80-97 Mean Corpuscular Hemoglobin 21 pg Low 27-31 Mean Corpuscular HGB Conc 32 g/dL N 31-36 Red Cell Distribution Width 18 % High 10.5-15 Platelet Count 230 10^3/uL N 150-450 Mean Platelet Volume 10 um3 N 7.4-10.4 Basic Metabolic Panel 03/22/2014 [facility] Sodium 137 mmol/L N 133-[address] [place] [address] [phone] Potassium 4.3 mmol/L N 3.7-5.6 Chloride 100 mmol/L Low 101-111 Co2 Carbon Dioxide 30 mmol/L N 22-32 Anion Gap 7 mmol/L N 2-11 Glucose 98 mg/dL N 70-100 Blood Urea Nitrogen 36 mg/dL High 6-24 Creatinine 1.29 mg/dL High 0.51-0.95 BUN/Creatinine Ratio 27.9 High 8-20 Calcium 9.2 mg/dL N 8.6-10.3 Egfr Non- 39.9 N >60 Egfr 51.3 N >60 22 1 SEE RESULT BELOW Name: DIAN MADISONSA Le : [address]: Brandon Rosales MD Acct: [id number] Unit: [id number] AGE: 83 Location: [place] [address] Re09/17/18 SEX: F Status: ADM IN SPEC: [id number] NAVNEET: 09/17/[address]: Semaj Richardson MD REQ: [id number] RECD: 09/17/18 STATUS: CHERISE COTTON DR: Kathy Forde MD _ SOURCE: URINE SPDESC: ORDERED: Urine Culture Procedure Result Reported Site Urine Culture Final 09/19/18- 45 ML Organism 1 ESCHERICHIA COLI [place] Count >100,000 (Many) CFU/ML 1. ESCHERICHIA COLI M.I.C. RX --------- ------ Ampicillin <=2 S Cefazolin <=4 S Cefepime <=1 S Ceftriaxone <=1 S Ciprofloxacin <=0.25 S Gentamicin <=1 S Levofloxacin <=0.12 S Meropenem <=0.25 S Nitrofurantoin <=16 S Tetracycline <=1 S Pipercillin/Tazobactam <=4 S Trimethoprim/Sulfamethoxazole <=20 S Amoxicillin/Clavulanic Acid <=2 S Aztreonam <=1 S Contact the Microbiology Department for any additional antibiotic reporting. * [facility] - Main Lab . END OF REPORT DEPARTMENT OF PATHOLOGY, [address] [place] [address] Matthew Basurto M.D. Director [facility] # [id number] 2 Because ethnic data is not always readily available, this report includes an eGFR for both -Americans and non- Americans. The National Kidney Disease Education Program (NKDEP) does not endorse the use of the MDRD equation for patients that are not between the ages of 18 and 70, are , have extremes of body size, muscle mass, or nutritional status, or are non- or non-. According to the National Kidney Foundation, irrespective of diagnosis, the stage of the disease is based on the level of kidney function: Stage Description GFR(mL/min/1.73 m(2)) 1 Kidney damage with normal or decreased GFR 90 2 Kidney damage with mild decrease in GFR 60-89 3 Moderate decrease in GFR 30-59 4 Severe decrease in GFR 15-29 5 Kidney failure <15 (or dialysis) 3 Critical Result LACT:2.1 Called to [id number] at: 10:37:20 by:[id number] Read back by:[email or web address] [place] Severe Sepsis and Septic Shock Management Bundle Measure requires all lactic acids initially measuring >2.0 mmol/L be repeated. 4 Because ethnic data is not always readily available, this report includes an eGFR for both -Americans and non- Americans. The National Kidney Disease Education Program (NKDEP) does not endorse the use of the MDRD equation for patients that are not between the ages of 18 and 70, are , have extremes of body size, muscle mass, or nutritional status, or are non- or non-. According to the National Kidney Foundation, irrespective of diagnosis, the stage of the disease is based on the level of kidney function: Stage Description GFR(mL/min/1.73 m(2)) 1 Kidney damage with normal or decreased GFR 90 2 Kidney damage with mild decrease in GFR 60-89 3 Moderate decrease in GFR 30-59 4 Severe decrease in GFR 15-29 5 Kidney failure <15 (or dialysis) 5 Therapeutic target for the treatment of diabetes mellitus patients is <7% HBA1C, and in selective patients <6.0%. Please refer to [place] [employer] diabetic care guidelines for further information. 6 Because ethnic data is not always readily available, this report includes an eGFR for both -Americans and non- Americans. The National Kidney Disease Education Program (NKDEP) does not endorse the use of the MDRD equation for patients that are not between the ages of 18 and 70, are , have extremes of body size, muscle mass, or nutritional status, or are non- or non-. According to the National Kidney Foundation, irrespective of diagnosis, the stage of the disease is based on the level of kidney function: Stage Description GFR(mL/min/1.73 m(2)) 1 Kidney damage with normal or decreased GFR 90 2 Kidney damage with mild decrease in GFR 60-89 3 Moderate decrease in GFR 30-59 4 Severe decrease in GFR 15-29 5 Kidney failure <15 (or dialysis) 7 Please note: The following may produce a false positive D Dimer test: - Rheumatoid factor greater than 60 IU/ml - Plasma hemoglobin greater than 0.05 gm/dl - Bilirubin greater than 50 mg/dl - Lipids greater than 1000 mg/dl - FDP greater than 20 ug/ml 8 >100 to <200 pg/mL: likely compensated congestive heart failure (CHF) 200 to 400 pg/mL: likely moderate CHF >400 pg/mL: likely moderate to severe CHF 9 Therapeutic target for the treatment of diabetes mellitus patients is <7% HBA1C, and in selective patients <6.0%. Please refer to [place] [employer] diabetic care guidelines for further information. 10 Desirable: <150 Borderline High: 150-199 High: 200-499 Very High: >500 11 Desirable: <200 Borderline High: 200-239 High: >239 12 Low: <40 Desirable: 40-60 High: >60 13 Desirable: <100 Near Optimal: 100-129 Borderline High: 130-159 High: 160-189 Very High: >189 14 Because ethnic data is not always readily available, this report includes an eGFR for both -Americans and non- Americans. The National Kidney Disease Education Program (NKDEP) does not endorse the use of the MDRD equation for patients that are not between the ages of 18 and 70, are , have extremes of body size, muscle mass, or nutritional status, or are non- or non-. According to the National Kidney Foundation, irrespective of diagnosis, the stage of the disease is based on the level of kidney function: Stage Description GFR(mL/min/1.73 m(2)) 1 Kidney damage with normal or decreased GFR 90 2 Kidney damage with mild decrease in GFR 60-89 3 Moderate decrease in GFR 30-59 4 Severe decrease in GFR 15-29 5 Kidney failure <15 (or dialysis) 15 FASTING 10 HOUR 16 Therapeutic target for the treatment of diabetes mellitus patients is <7% HBA1C, and in selective patients <6.0%. Please refer to [place] [employer] diabetic care guidelines for further information. 17 Because ethnic data is not always readily available, this report includes an eGFR for both -Americans and non- Americans. The National Kidney Disease Education Program (NKDEP) does not endorse the use of the MDRD equation for patients that are not between the ages of 18 and 70, are , have extremes of body size, muscle mass, or nutritional status, or are non- or non-. According to the National Kidney Foundation, irrespective of diagnosis, the stage of the disease is based on the level of kidney function: Stage Description GFR(mL/min/1.73 m(2)) 1 Kidney damage with normal or decreased GFR 90 2 Kidney damage with mild decrease in GFR 60-89 3 Moderate decrease in GFR 30-59 4 Severe decrease in GFR 15-29 5 Kidney failure <15 (or dialysis) 18 Desirable: <150 Borderline High: 150-199 High: 200-499 Very High: >500 19 Desirable: <200 Borderline High: 200-239 High: >239 20 Low: <40 Desirable: 40-60 High: >60 21 Desirable: <100 Near Optimal: 100-129 Borderline High: 130-159 High: 160-189 Very High: >189 22 Because ethnic data is not always readily available, this report includes an eGFR for both -Americans and non- Americans. The National Kidney Disease Education Program (NKDEP) does not endorse the use of the MDRD equation for patients that are not between the ages of 18 and 70, are , have extremes of body size, muscle mass, or nutritional status, or are non- or non-. According to the [employer], irrespective of diagnosis, the stage of the disease is based on the level of kidney function: Stage Description GFR(mL/min/1.73 m(2)) 1 Kidney damage with normal or decreased GFR 90 2 Kidney damage with mild decrease in GFR 60-89 3 Moderate decrease in GFR 30-59 4 Severe decrease in GFR 15-29 5 Kidney failure <15 (or dialysis) Procedures Date Code Description Status 09/10/2018 [id number] Diabetic Retinal Eye Exam Completed 04/29/2018 49623 EKG Tracing & Interpretation Completed 03/27/2014 82147 Transpedicular Approach W/Decomo SP Cord,Equina,Nerve Completed RT; Lumbar Encounters Type Date Location Provider Dx Diagnosis Office Visit 06/20/2018 [facility] Internal Kathy Forde, M10.00 Idiopathic gout, 4:00p Medicine - M.D. unspecified site [place] I10 Essential (primary) hypertension Z23 Encounter for immunization Office Visit 05/12/2018 4:00p [facility] Elizabeth Forde, M79.672 Pain in left Medicine - M.D. foot [place] I50.9 Heart failure, unspecified Office Visit 04/29/2018 10:00a [facility] Elizabeth Chavez E11.8 Type 2 diabetes Dg Forde M.D. mellitus with [place] unspecified complications D64.9 Anemia, unspecified E03.9 Hypothyroidism, unspecified R06.02 Shortness of breath R60.0 Localized edema M79.672 Pain in left foot I44.0 Atrioventricular block, first degree I49.1 Atrial premature depolarization Office Visit 01/26/2018 9:50a [facility] Internal Giselle E11.9 Type 2 diabetes Dg Julien NP mellitus without [address] complications E03.9 Hypothyroidism, unspecified M54.6 Pain in thoracic spine Office Visit 07/29/2017 10:30a [facility] Internal [place] I10 Essential (primary ) Medicine - [facility] M[facility] HE[employer] NURSE hypertension [address] E78.5 Hyperlipidemia, unspecified E11.8 Type 2 diabetes mellitus with unspecified complications D48.5 Neoplasm of uncertain behavior of skin L98.9 Disorder of the skin and subcutaneous tissue, unspecified Z23 Encounter for immunization Office Visit 03/19/2014 Neurosurgery [facility] 722.10 Intervertebral Disc 1:30p [facility] M.D. Displacement Lumbar W/O Myelopathy Plan of Treatment Future Appointment(s):12/23/2018 2:20 pm - Kathy Forde M.D. at [facility]10/05/2018 2:20 pm - Dwaine Vazquez, DO FACC at [facility]09/23/2018 - Kathy Forde M.D.I48.91 Unspecified atrial fibrillationComments:Stay on all your current medicationsSee Dr. Rice up:December for f/u qhhkyjvvW05.9 Anemia, unspecifiedComments: Please do blood tests in early LedwcxbZ29.9 Hypothyroidism, tozrsnvqkdkO69.9 Type 2 diabetes mellitus without complications
[2018-09-28] MEDS ORDERED: Diltiazem DRIP* 100 MG/100 ML ADDV.BAG IVPB ONE (12:42)
[2018-09-28] MEDS ORDERED: Diltiazem IV* 5 MG/ML 5 ML VIAL (for loading dose/IV Push) (25 MG) IV PUSH ONE (12:42)
[2018-09-28] MEDS ORDERED: Diltiazem IV* 5 MG/ML 5 ML VIAL (for loading dose/IV Push) (25 MG) ONE (12:44)
--- NOTE | 2018-09-28 12:57 | ED ---
Shortness of Breath - HPI Summary HPI Summary: This patient is an 83 year old F presenting to [facility] with a chief complaint of shortness of breath [employer]. She experiences her SOB upon exertion and is resolved once she rests for 5 minutes. She took Cardizem this morning. She has a Hx of AFIB. She denies chest pain, nausea, and vomiting. She rates her pain 3/10 in severity. - History of Current Complaint Time Seen by Provider: 09/28/18 12:35 Hx Obtained From: Patient Onset/Duration: Gradual Onset Current Severity: Mild Dyspnea At: Exertion Associated Signs & Symptoms: Negative - Allergy/Home Medications Allergies/Adverse Reactions: Allergies Allergy/AdvReac Type Severity Reaction Status Date / Time lisinopril Allergy Unknown Verified 09/17/18 09:26 Reaction Details PMH/Surg Hx/FS Hx/Imm Hx Endocrine/Hematology History: Reports: Hx Diabetes, Hx Thyroid Disease - hypothyroid, Hx Anemia - HX OF Cardiovascular History: Reports: Hx Coronary Artery Disease - [address], Hx Hypertension, Other Cardiovascular Problems/Disorders - DIABETES Denies: Hx Pacemaker/ICD, Hx Peripheral Vascular Disease History: Reports: Hx Renal Disease - abnormal gfr Denies: Hx Dialysis Musculoskeletal History: Reports: Hx Arthritis - KNEES Sensory History: Reports: Hx Contacts or Glasses Denies: Hx Hearing Aid Opthamlomology History: Reports: Hx Contacts or Glasses Neurological History: Denies: Hx Seizures, Hx Transient Ischemic Attacks (TIA) Psychiatric History: Reports: Hx Depression Denies: Hx Panic Disorder - Surgical History Surgery Procedure, Year, and Place: CARDIAC STENT PT DOES NOT HAVE IMPLANT CARD. 1.5 [facility] MAGNET. HYSTERECTOMY. L4L5 laminectory 2014 Hx Anesthesia Reactions: No Infectious Disease History: No Infectious Disease History: Denies: Traveled Outside the [place] in Last 30 Days - Family History Known Family History: Positive: Hypertension - Social History Alcohol Use: None Hx Substance Use: No Substance Use Type: Reports: None Hx Tobacco Use: No Smoking Status (MU): Never Smoked Tobacco Review of Systems Negative: Fever Negative: Chest Pain Positive: Shortness Of Breath Negative: Vomiting, Nausea All Other Systems Reviewed And Are Negative: Yes Physical Exam - Summary Physical Exam Summary: Appearance: Well appearing, no pain distress Skin: warm, dry, reflects adequate perfusion. Hematoma on left hand. Head/face: normal Eyes: EOMI, SHERRI ENT: mucous membranes moist Neck: supple, non-tender. No JVD. Respiratory: CTA, breath sounds present, diminished no crackles. Cardiovascular: Rapid irregularly irregular, pulses symmetrical Abdomen: non-tender, soft Bowel Sounds: present Musculoskeletal: normal, strength/ROM intact. Trace edema bilateral lower extremities. Neuro: normal, sensory motor intact, A&Ox3 Triage Information Reviewed: Yes Vital Signs On Initial Exam: Initial Vitals Temp Pulse Resp BP Pulse Ox 97.4 F 114 40 151/125 98 09/28/18 12:40 09/28/18 12:40 09/28/18 12:40 09/28/18 12:40 09/28/18 12:40 Vital Signs Reviewed: Yes Diagnostics - Vital Signs Vital Signs Temp Pulse Resp BP Pulse Ox 09/28/18 12:40 97.4 F 114 40 151/125 98 - Laboratory Result Diagrams: 09/28/18 12:58 09/28/18 12:58 Lab Statement: Any lab studies that have been ordered have been reviewed, and results considered in the medical decision making process. - Radiology CXR Radiology Interpretation Completed By: Radiologist Summary of Radiographic Findings: Cardiomegaly. No active cardiopulmonary disease. ED Provider has reviewed this report. - EKG 1247 Cardiac Rate: Tachycardia - 133 BPM EKG Rhythm: Atrial Fibrillation - Rapid ST Segment: Non-Specific Summary of EKG Findings: Long QT Course/Dx - Course Course Of Treatment: Patient with a history of atrial fibrillation presents with exertional dyspnea and irregular fast heart rate. Found to be in rapid atrial fibrillation and she was slowed with diltiazem IV bolus and drip. Her dyspnea resolved. Her BNP is elevated but no JVD is present and no significant pulmonary edema on x-ray. She will be admitted for further medical management by the hospitalist team. - Diagnoses Differential Diagnosis/HQI/PQRI: Positive: CHF, OR, Unstable Angina, Other - Atrial fibrillation/arrhythmia Provider Diagnoses: Afib, Dyspnea, Congestive heart failure (CHF) - Physician Notifications Discussed Care of Patient With: Arlette Ray - Hospitalist Time Discussed With Above Provider: 13:37 Instructed by Provider To: Admit As Inpatient Discharge - Sign-Out/Discharge Documenting (check all that apply): Patient Departure - Admit - Discharge Plan Condition: Fair Disposition: ADMITTED TO [facility] Referrals: Kathy Forde MD [Primary Care Provider] - - Billing Disposition and Condition Condition: FAIR Disposition: Admitted to [facility] - Attestation Statements Document Initiated by Christopher: Yes Documenting Scribe: Sukhjinder Urbina Provider For Whom Christopher is Documenting (Include Credential): Ajay Khanna MD Scribe Attestation: ISukhjinder, scribed for Ajay Khanna MD on 09/28/18 at 1415. Scribe Documentation Reviewed: Yes Provider Attestation: The documentation as recorded by the Sukhjinder parks accurately reflects the service I personally performed and the decisions made by me, Ajay Khanna MD
[2018-09-28 13:14] LABS: ABS Basophils 0 10^3/ul (0-0.2); ABS Eosinophils 0.1 10^3/ul (0-0.6); ABS Lymphocytes 1.1 10^3/ul (1.0-4.8); ABS Monocytes 0.5 10^3/ul (0-0.8); ABS Neutrophils 6.7 10^3/ul (1.5-7.7); ABS Nucleated RBC 0 10^3/ul; Hematocrit 35 % (35-47); Hemoglobin 10.8 g/dl (12.0-16.0); Lymphocyte % 13.4 % (25-47); Mean Corpuscular HGB Conc 31 g/dl (31-36); Mean Corpuscular Hemoglobin 20 pg (27-31); Mean Corpuscular Volume 64 fL (80-97); Mean Platelet Volume 8.6 fL (7.4-10.4); Nucleated Red Blood Cells % 0.1; Platelet Count 227 10^3/ul (150-450); Red Blood Count 5.41 10^6/ul (4.00-5.40); Red Cell Distribution Width 20 % (10.5-15); White Blood Count 8.5 10^3/ul (3.5-10.8)
[2018-09-28 13:24] LABS: INR 1.81 (0.77-1.02)
[2018-09-28 13:33] LABS: EGFR Non-African American 51.8 (>60)
[2018-09-28] MEDS ORDERED: Furosemide IV* 10 MG/ML 2 ML VIAL (20 MG) IV SLOW PU ONE (15:13)
[2018-09-28] MEDS ORDERED: Dextrose 50% Syringe 50 ML* 25 GM/50 ML SYRINGE IV PUSH PRN (15:27)
[2018-09-28] MEDS ORDERED: Diltiazem TAB* 60 MG PO ONE (15:55)
[2018-09-28] MEDS: Insulin LISPRO* 1 UNITS UNIT SUBCUT SCH ×2 (17:21→22:11)
--- NOTE | 2018-09-28 20:37 | HP ---
HISTORY AND PHYSICAL: ADDENDUM: The EKG was discussed with Cardiology (Dr. Bergeron) and her recommendation was to avoid ag ents that could prolong her QT further, and for now to increase rate-control agent, so since her meto prolol was increased the last time she was here, I am going to increase her Cardizem from 120 to 180 and continue to monitor on telemetry. If she has recurrent atrial fibrillation with rapid ventricula r rate, the plan would be for a formal Cardiology consult for GOGO-guided cardioversion. [id number]/[facility] #: [id number]
--- NOTE | 2018-09-28 20:46 | HP ---
CC: Dr. Forde; Dr. Vazquez* HISTORY AND PHYSICAL: DATE OF ADMISSION: 09/28/18 TIME OF EVALUATION: 3:05 p.m. PRIMARY CARE PROVIDER: Dr. Forde. CARBON PAPER INTERLEAFER: Dr. Vazquez. CHIEF COMPLAINT: Shortness of breath. HISTORY OF PRESENT ILLNESS: Ms. Madison is an 83-year-old lady with a past medical history of coronary artery disease, hypertension, osteoarthritis, rosacea, type 2 diabetes, gout, hypothyroidism, recent admission for atrial fibrillation and diastolic congestive heart failure, who presented to the emergency room with complaints of shortness of breath. The patient was recently admitted to [facility] from 09/17/18 to 09/21/18. At that time, she had presented to the emergency room with shortness of breath and chest tightness. She was found to be in atrial fibrillation with rapid ventricular rate and her shortness of breath was thought to be secondary to congestive heart failure. The patient was admitted to the telemetry floor and an echocardiogram had shown ejection fraction of 40% to 45% with global hypokinesis felt to be secondary to tachycardia related cardiomyopathy. As her CHADS2-VASc was at least 5, the patient was started on Eliquis and plan at that point was for rate control and her diltiazem was continued and her metoprolol dose was increased. On discharge , she went home on 20 mg of Lasix and as per the patient and her daughter, she has been very compliant with her care. She saw Dr. Forde as outpatient after discharge and was told that her heart was between "its usual irregular" and the patient states that she was feeling well at home. She has been compliant with medications and diet. There were no sick contacts, but she states that yesterday she started to have some shortness of breath with exertion. She would walk around the home doing things, feel short of breath but then she would sit down, rest and feel better. She did not sleep well last night and states that today the shortness of breath was much more severe and not relieved by rest. She was brought in by EMS to the emergency room and she was found to be in atrial fibrillation with her heart rate in the 150s and was also requiring supplemental oxygen. In the emergency room, the patient received 1 dose of Cardizem IV with improvement of her tachycardia now down to the 80s, but the patient continues to be short of breath, reason why the hospitalist service was consulted. The patient states that she has been very compliant with the diet laid out by her daughter. She has been compliant with medications (her daughter prepares her medication box). There were no sick contacts. She still drinks caffeine, 1 cup of regular coffee in the morning and some ice tea with meals. PAST MEDICAL HISTORY: 1. Diastolic congestive heart failure. 2. Atrial fibrillation. 3. Hypothyroidism. 4. Coronary artery disease. 5. Hypertension. 6. Osteoarthritis. 7. Rosacea. 8. Type 2 diabetes. 9. Gout. 10. 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 PAST SURGICAL HISTORY: 1. Status post hysterectomy. 2. Status post appendectomy. 3. Status post lumbar diskectomy. MEDICATIONS: 1. Allopurinol 100 mg p.o. daily. 2. Apixaban 5 mg p.o. b.i.d. 3. Atorvastatin 40 mg p.o. at bedtime. 4. Citalopram 20 mg p.o. daily. 5. Diltiazem CD 120 mg p.o. daily. 6. Furosemide 20 mg p.o. daily. 7. Irbesartan 300 mg p.o. daily. 8. Levothyroxine 125 mcg p.o. daily at 6 a.m. 9. Metformin 500 mg p.o. b.i.d. 10. Metoprolol succinate 50 mg p.o. daily. ALLERGIES: With LISINOPRIL, the patient had cough. FAMILY HISTORY: Mom at age 85, she had Parkinson's. Dad at age 55 from an VT. The patient has 3 sisters and 1 brother, all of who are from cancer. SOCIAL HISTORY: The patient is a lifelong nonsmoker. Drinks alcohol rarely. 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 She is and has 5 children. Surrogate decision maker is her daughter, Elvia Madison, phone number is [phone] or [phone]. REVIEW OF SYSTEMS: A 14-point review of systems was performed and all the pertinent negative and positive findings are in the HPI. PHYSICAL EXAMINATION GENERAL: The patient is a pleasant elderly lady, sitting in the ED stretcher, in no acute distress. VITAL SIGNS: Temperature 97.4, heart rate is 76, respiratory rate is 25, oxygen saturation 99% on 3 L nasal cannula. HEENT: Pupils are equal. Moist mucous membranes. LUNGS: Breath sounds present with bilateral basilar crackles. CVS: Normal S1 and S2. Irregularly irregular. ABDOMEN: Obese, soft. Bowel sounds present. EXTREMITIES: There is trace edema. NEURO: The patient is alert and oriented x3. Able to move all 4 extremities. DIAGNOSTIC STUDIES/LAB DATA: The patient had a CBC that showed WBC of 8.5, hemoglobin of 10.8, hematocrit of 35, MCV of 64, MCH of 20, platelets of 227, 000 with 78% neutrophils. INR is 1.8. Chemistry showed a sodium of 138, potassium of 4, chloride of 102, bicarb of 28, BUN of 22, creatinine of 1.02, glucose of 127, lactic acid of 2.1, calcium of 9.7. LFTs were normal except for an alk phos of 143. BNP is 458, up from 181 on her prior admission. Chest x-ray showed cardiomegaly and no active cardiopulmonary disease. EKG done 09/28/18 at 12:47 p.m. shows atrial fibrillation at 133 beats per minute with a prolonged QT of 511. No acute ischemic changes. No significant change when compared to her prior EKG from 09/20/18, but at that point her QTc was 458. ASSESSMENT AND PLAN: Ms. Madison is an 83-year-old lady with a past medical history of diastolic congestive heart failure, atrial fibrillation, coronary artery disease, hypertension, osteoarthritis, type 2 diabetes, gout, who was recently admitted to [facility] with atrial fibrillation with rapid ventricular rate who presented to the emergency room with complaints of shortness of breath, found to have atrial fibrillation with rapid ventricular rate and congestive heart failure exacerbation again. 1. Atrial fibrillation with rapid ventricular rate. The patient states that she has been compliant with diet and medications, and the only thing that I can elicit on her history is that she is drinking caffeine. She received 20 mg of Cardizem in the emergency room and is now rate controlled. I am going to continue her oral Cardizem and metoprolol, but if needed, she will be started on a Cardizem drip. We are going to continue her Eliquis for anticoagulation. 2. Acute diastolic congestive heart failure exacerbation. Likely secondary to atrial fibrillation with rapid ventricular rate. The patient will be diuresed with IV furosemide and we will monitor her I's and O's and daily weights. 3. Acute hypoxemic respiratory failure, secondary to the above. We will continue supplemental oxygen as needed to keep her oxygen saturation greater than 90%. 4. QT prolongation. We will discuss this finding with Cardiology. 5. Type 2 diabetes. We will hold her metformin for now and she will have lispro sliding scale for coverage. 6. Mild lactic acidosis. The patient is not septic at this time and her lactic acid elevation is secondary to metformin use. 7. DVT prophylaxis: The patient is already on Eliquis for her atrial fibrillation. 8. Code status: The patient is a do not resuscitate. TIME SPENT: Approximately 50 minutes were spent with the patient interview, medical records review, physical examination to complete this admission, more than half of this time was spent [id number] with the patient and coordination of care. ADDENDUM TO HISTORY AND PHYSICAL: The EKG was discussed with Cardiology (Dr. Bergeron) and her recommendation was to avoid agents that could prolong her QT further, and for now to increase rate- control agent, so since her metoprolol was increased the last time she was here , I am going to increase her Cardizem from 120 to 180 and continue to monitor on telemetry. If she has recurrent atrial fibrillation with rapid ventricular rate, the plan would be for a formal Cardiology consult for GOGO-guided cardioversion. [id number]/[facility] #: [id number]/[facility] #: [id number] AGUILA
[2018-09-28] MEDS ORDERED: Melatonin 3 MG TAB PO STA (22:11)
[2018-09-28] MEDS: Apixaban* 5 MG TAB PO SCH (22:11)
[2018-09-28] MEDS: Atorvastatin* 40 MG TAB PO SCH (22:11)
[2018-09-29] MEDS: Levothyroxine TAB* 125 MCG TAB PO SCH (05:12)
[2018-09-29 06:11] LABS: ABS Basophils 0.1 10^3/ul (0-0.2); ABS Eosinophils 0.2 10^3/ul (0-0.6); ABS Lymphocytes 1.2 10^3/ul (1.0-4.8); ABS Monocytes 0.6 10^3/ul (0-0.8); ABS Neutrophils 4.3 10^3/ul (1.5-7.7); ABS Nucleated RBC 0 10^3/ul; Eosinophil % 2.9 % (0-6); Hematocrit 31 % (35-47); Hemoglobin 9.5 g/dl (12.0-16.0); Lymphocyte % 18.5 % (25-47); Mean Corpuscular HGB Conc 31 g/dl (31-36); Mean Corpuscular Hemoglobin 20 pg (27-31); Mean Corpuscular Volume 63 fL (80-97); Mean Platelet Volume 8.8 fL (7.4-10.4); Nucleated Red Blood Cells % 0.1; Platelet Count 185 10^3/ul (150-450); Red Blood Count 4.84 10^6/ul (4.00-5.40); Red Cell Distribution Width 20 % (10.5-15); White Blood Count 6.3 10^3/ul (3.5-10.8)
[2018-09-29 06:29] LABS: EGFR Non-African American 51.8 (>60)
[2018-09-29] MEDS: Insulin LISPRO* 1 UNITS UNIT SUBCUT SCH ×4 (07:43→22:19)
[2018-09-29] MEDS ORDERED: Metolazone TAB* 5 MG PO ONE (08:32)
[2018-09-29] MEDS: Diltiazem CD CAP* 180 MG PO SCH (08:54)
[2018-09-29] MEDS: Losartan TAB* 25 MG PO SCH (08:54)
[2018-09-29] MEDS: Citalopram TAB* 20 MG PO SCH (08:54)
[2018-09-29] MEDS: Apixaban* 5 MG TAB PO SCH ×2 (08:54→21:34)
[2018-09-29] MEDS: Allopurinol TAB* 100 MG PO SCH (08:54)
[2018-09-29] MEDS: Metoprolol Succinate XL TAB* 50 MG PO SCH (08:55)
[2018-09-29] MEDS ORDERED: Furosemide IV* 10 MG/ML VIAL (40 MG) IV SLOW PU ONE (09:00)
[2018-09-29] MEDS ORDERED: Diltiazem CD CAP* 120 MG PO SCH (09:00)
--- NOTE | 2018-09-29 11:56 | PN ---
Subjective Date of Service: 09/29/18 Interval History: HOSPITALIST PROGRESS NOTE Patient seen and examined at bedside. Care reviewed and d/w Isela Burns RN. She feels a little better today, but still has dyspnea. Denies chest pain or palpitations. Family History: Unchanged from Admission Social History: Unchanged from Admission Past Medical History: Unchanged from Admission Objective Active Medications: Allopurinol (Zyloprim Tab*) 100 mg PO DAILY [facility] Last Admin: 09/29/18 08:54 Dose: 100 mg Apixaban (Eliquis*) 5 mg PO BID [facility] Last Admin: 09/29/18 08:54 Dose: 5 mg Atorvastatin Calcium (Lipitor*) 40 mg PO 2100 [facility] Last Admin: 09/28/18 22:11 Dose: 40 mg Citalopram Hydrobromide (Celexa Tab*) 20 mg PO DAILY [facility] Last Admin: 09/29/18 08:54 Dose: 20 mg Dextrose (D50w Syringe 50 Ml*) 12.5 gm IV PUSH .FOR FS < 60 - SS PRN PRN Reason: FS < 60 Diltiazem HCl (Cardizem Cd Cap*) 180 mg PO DAILY [facility] Last Admin: 09/29/18 08:54 Dose: 180 mg Insulin Human Lispro (Humalog*) 0 units SUBCUT ACHS [facility]; Protocol Last Admin: 09/29/18 07:43 Dose: Not Given Levothyroxine Sodium (Synthroid Tab*) 125 mcg PO DAILY@0600 [facility] Last Admin: 09/29/18 05:12 Dose: 125 mcg Losartan Potassium (Cozaar Tab*) 100 mg PO DAILY [facility] Last Admin: 09/29/18 08:54 Dose: 100 mg Metoprolol Succinate (Toprol Xl Tab*) 50 mg PO DAILY [facility] Last Admin: 09/29/18 08:55 Dose: 50 mg Vital Signs - 8 hr 09/29/18 09/29/18 07:46 11:26 Temperature 98.1 F 97.2 F Pulse Rate 56 75 Respiratory 20 24 Rate Blood Pressure 153/92 113/71 (mmHg) O2 Sat by Pulse 98 99 Oximetry Oxygen Devices in Use Now: Nasal Cannula - 2 liters Appearance: Pleasant elderly lady lying in bed in NAD. Eyes: No Scleral Icterus Ears/Nose/Mouth/Throat: Mucous Membranes Moist Neck: Trachea Midline Respiratory: Symmetrical Chest Expansion and Respiratory Effort, - - BS+ bilaterally with bibasilar crackles Cardiovascular: - - Normal S1 and S2, irregularly irregular Abdominal: NL Sounds; No Tenderness; No Distention Extremities: - - Trace bilatera LE edema Neurological: Alert and Oriented x 3, NL Muscle Strength and Tone Result Diagrams: 09/29/18 05:56 09/29/18 05:56 Assess/Plan/Problems-Billing Assessment: Mrs Madison is an 83yo F with PMH of diastolic CHF, Afib, hypothyroidism, CAD, type 2 DM, gout, 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 - Patient Problems (1) Acute respiratory failure with hypoxemia Comment: - Secondary to CHF exacerbation. - Continue supplemental O2. (2) Atrial fibrillation with rapid ventricular response Comment: - Rate is better controlled now - continue metoprolol, Cardizem increased to 180mg. - Continue Apixaban. - QTc is back to normal. - D/w patient and family if her symptoms persists she may require Cardiology evaluation for GOGO CV. (3) Congestive heart failure Comment: - Compliant with meds and diet at home. - Suspect secondary to Afib RVR. - Continue diuresis - will add PO metolazone to IV Furosemide. - Continue to monitor I/Os and daily weights. (4) Diabetes Comment: - Controlled. - Continue Lispro SS. (5) DVT prophylaxis Comment: - Apixaban. (6) DNR (do not resuscitate) Status and Disposition: Change to inpatient for management of acute hypoxemic respiratory failure and CHF exacerbation, at risk for sudden decompensation.
[2018-09-29] MEDS ORDERED: Potassium Chlor TAB* 20 MEQ TAB.ER PO ONE (14:40)
[2018-09-29] MEDS: Atorvastatin* 40 MG TAB PO SCH (21:34)
[2018-09-29] MEDS ORDERED: Melatonin 3 MG TAB PO PRN (21:39)
[2018-09-30] MEDS: Levothyroxine TAB* 125 MCG TAB PO SCH (05:32)
[2018-09-30 07:40] LABS: EGFR Non-African American 43.7 (>60)
[2018-09-30] MEDS: Insulin LISPRO* 1 UNITS UNIT SUBCUT SCH ×2 (07:55→11:29)
[2018-09-30] MEDS: Metoprolol Succinate XL TAB* 50 MG PO SCH (08:55)
[2018-09-30] MEDS: Citalopram TAB* 20 MG PO SCH (08:55)
[2018-09-30] MEDS: Allopurinol TAB* 100 MG PO SCH (08:55)
[2018-09-30] MEDS: Diltiazem CD CAP* 180 MG PO SCH (08:55)
[2018-09-30] MEDS: Apixaban* 5 MG TAB PO SCH (08:55)
[2018-09-30] MEDS: Losartan TAB* 25 MG PO SCH (08:55)
[2018-09-30 12:15] VITALS: BP 106/62
--- NOTE | 2018-10-01 01:59 | DS ---
CC: Dr. Forde; Dr. Vazquez. DISCHARGE SUMMARY: DATE OF ADMISSION: 09/28/18 DATE OF DISCHARGE: 09/30/18 PRIMARY CARE PROVIDER: Dr. Forde. BED MANAGER: Dr. Vazquez. DISCHARGE DIAGNOSES: 1. Acute hypoxemic respiratory failure. 2. Acute diastolic congestive heart failure exacerbation. 3. Atrial fibrillation with rapid ventricular rate, now back in normal sinus rhythm. SECONDARY DIAGNOSES: 1. Diastolic congestive heart failure. 2. Atrial fibrillation. 3. Hypothyroidism. 4. Coronary artery disease. 5. Hypertension. 6. Osteoarthritis. 7. Rosacea. 8. Type 2 diabetes. 9. Gout. 10. Chronic microcytic anemia, secondary to thalassemia. MEDICATION LIST: 1. Allopurinol 100 mg p.o. daily. 2. Apixaban 5 mg p.o. b.i.d. 3. Atorvastatin 40 mg p.o. at bedtime. 4. Citalopram 20 mg p.o. daily. 5. Furosemide 20 mg p.o. daily. 6. Irbesartan 300 mg p.o. daily. 7. Levothyroxine 125 mcg p.o. daily. 8. Metformin 500 mg p.o. b.i.d. 9. Metoprolol succinate 50 mg p.o. daily. Medication change: Diltiazem CD was increased from 120 to 180 mg p.o. daily. HOSPITAL COURSE: Mrs. Madison is an 83-year-old lady with a past medical history as stated above with a recent admission to [facility] [place] [facility] from 09/17/18 to 09/21/18 for atrial fibrillation with rapid ventricular r ate and congestive heart failure exacerbation. The patient was discharged home and states that she wa s feeling well, but day prior to admission she started to have shortness of breath again, and in the emergency room, she was found to be in atrial fibrillation with rapid ventricular rate and to have si gns of fluid overload. For more details about her presentation, I refer you to her history and physi liam. The patient was admitted to telemetry floor and she was diuresed with metolazone and furosemide and s he lost 3 pounds during admission with improvement of her shortness of breath. She initially receive d Cardizem IV and her p.o. Cardizem was increased from 120 to 180 mg with good rate control. The nig ht prior to admission, the patient actually converted to normal sinus rhythm and has remained in that rhythm so far. She had an episode that was described as 10 beats of V-tach, but on my review of the strip, I believe this was AFib with aberrancy and not V-tach. The patient had resolution of her chest pressure, significant improvement of her shortness of breath and she was thought to be stable to be discharged home. She still requires oxygen supplementation es pecially on exertion, so she has been discharged home on 3 L of oxygen to be worn continuously, but s he will need further followup as an outpatient to decide when the oxygen is no longer required. The patient appears to be very compliant with her diet and medications and the only recommendation at this time is to decrease the amount of caffeine she is drinking. The patient is medically stable for discharge at this time and she was advised to keep her appointmen t with Dr. Vazquez on 10/05/18 as it was previously scheduled. PHYSICAL EXAMINATION: Vital Signs: Temperature 98.2, heart rate is 67, respiratory rate is 16, oxyg en saturation 97% on 2 L, blood pressure is 120/87. General: The patient is a pleasant elderly lady, sitting up in bed, in no acute distress. CVS: Normal S1, S2. Regular rate and rhythm. Chest: Br eath sounds present bilaterally with no added sounds. Abdomen is obese. Bowel sounds are present. Extremities: No edema. Neuro: She is alert and oriented x3. Able to move all 4 extremities. DIET: Heart-healthy diet, avoid caffeine, consistent carb. ACTIVITIES: As tolerated. DISPOSITION: To home. STATUS WHILE IN THE HOSPITAL: Inpatient. Please keep in mind that this is a summarized version of this patient's hospital stay. If you need m ore information, please feel free to call me at [phone] or please obtain full medical records. TIME SPENT: Approximately 45 minutes was spent to complete this discharge. [id number]/[facility] #: [id number]
== END 2018-09-30 14:40 | disposition home health service (06) | DRG 291 ==
LOC: ED 12:30 → MEDTELE 15:09 → OBSVTOIN 09-29 12:01
PROVIDERS: ADMIT Internal Medicine; ATTEND Internal Medicine
DX: I11.0 Hypertensive heart disease with heart failure (principal); J96.01 Acute respiratory failure with hypoxia; E87.2 Acidosis; I48.91 Unspecified atrial fibrillation; I50.33 Acute on chronic diastolic (congestive) heart failure; E03.9 Hypothyroidism, unspecified; I25.10 Atherosclerotic heart disease of native coronary artery without angina pectoris; M19.90 Unspecified osteoarthritis, unspecified site; L71.9 Rosacea, unspecified; E11.9 Type 2 diabetes mellitus without complications; M17.0 Bilateral primary osteoarthritis of knee; F32.9 Major depressive disorder, single episode, unspecified; D56.3 Thalassemia minor; Z66 Do not resuscitate; M10.9 Gout, unspecified; D50.9 Iron deficiency anemia, unspecified; Z79.01 Long term (current) use of anticoagulants; Z79.84 Long term (current) use of oral hypoglycemic drugs; Z99.81 Dependence on supplemental oxygen; Z90.89 Acquired absence of other organs; Z90.710 Acquired absence of both cervix and uterus; Z88.8 Allergy status to other drugs, medicaments and biological substances; Z82.49 Family history of ischemic heart disease and other diseases of the circulatory system; Z80.9 Family history of malignant neoplasm, unspecified; Z82.0 Family history of epilepsy and other diseases of the nervous system; Z95.5 Presence of coronary angioplasty implant and graft
CPT/HCPCS: 36415; 71045; 80048; 80053; 83605; 83735; 83880; 84443; 84484; 85025; 85610; 93005; 99283; A9270-GY; G0378; J1940

== ENCOUNTER 2019-03-08 11:07 | Inpatient (IN) | payer MEDICARE, BC ==
--- NOTE | 2019-03-08 11:30 | ED ---
Shortness of Breath - HPI Summary HPI Summary: Patient is a 84 y/o F presenting to ED with complaints of productive cough, vomiting, diarrhea, increased work of breathing for the past 24 hours. She denies fever and lives alone but notes that she "went out" four days ago. No blood, black stools in diarrhea. Daughter, Celestine is present. Daughter reports that the patient had issues with wheezing when she goes into afib. 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 Hx of CHF as well, patient takes Furosemide 20 mg. She is additionally on Metoprolol. Daughter notes that the patient used to be on metformin. However, the patient notes that she had not taken any of her home medications today or last night. The patient has been on a low sodium diet, per daughter. Patient wears o2, 2L, at home when she exerts herself and at night. Patient was placed on o2 constantly last night by daughter. No kidney issues reported. No cp, abd pain, no n/v/d . Pt has not take her medications for the last evening or this am because wasn't sure what was going on or if would make her nauseous. On triage, associated severity is rated 2/10, nothing is noted to aggravate/alleviate Sx, patient reports no treatment NURSE OFFICE. Home medications and allergies are reviewed. - History of Current Complaint Chief Complaint: EDFluSymptoms Time Seen by Provider: 03/08/19 11:14 Hx Obtained From: Patient Onset/Duration: Lasting Days - 24 HOURS, Still Present Timing: Constant Aggrevating Factors: Nothing Alleviating Factors: Nothing Associated Signs & Symptoms: Cough (Productive) - Allergy/Home Medications Allergies/Adverse Reactions: Allergies Allergy/AdvReac Type Severity Reaction Status Date / Time lisinopril Allergy Unknown Verified 03/08/19 11:14 Reaction Details Home Medications: Home Medications Amiodarone TAB* [Cordarone TAB*] 200 mg PO QAM 03/08/19 [History Confirmed 03/08] Levothyroxine TAB* [Synthroid 125 MCG TAB*] 125 mcg PO QAM 03/08/19 [History Confirmed 03/08/19] Melatonin (NF) 1 tab PO BEDTIME 03/08/19 [History Confirmed 03/08/19] Sertraline* [Zoloft*] 50 mg PO DAILY 03/08/19 [History Confirmed 03/08/19] PMH/Surg Hx/FS Hx/Imm Hx Previously Healthy: No Endocrine/Hematology History: Reports: Hx Diabetes, Hx Thyroid Disease - hypothyroid, Hx Anemia - HX OF Cardiovascular History: Reports: Hx Coronary Artery Disease - [address], Hx Hypertension, Other Cardiovascular Problems/Disorders - DIABETES Denies: Hx Pacemaker/ICD, Hx Peripheral Vascular Disease History: Reports: Hx Renal Disease - abnormal gfr Denies: Hx Dialysis Musculoskeletal History: Reports: Hx Arthritis - KNEES Sensory History: Reports: Hx Contacts or Glasses Denies: Hx Hearing Aid Opthamlomology History: Reports: Hx Contacts or Glasses Neurological History: Denies: Hx Seizures, Hx Transient Ischemic Attacks (TIA) Psychiatric History: Reports: Hx Depression Denies: Hx Panic Disorder - Surgical History Surgery Procedure, Year, and Place: CARDIAC STENT PT DOES NOT HAVE IMPLANT CARD. 1.5 ARTUR MAGNET. HYSTERECTOMY. L4L5 laminectory 2014 Hx Anesthesia Reactions: No Infectious Disease History: No Infectious Disease History: Denies: Traveled Outside the [place] in Last 30 Days - Family History Known Family History: Positive: Hypertension - Social History Alcohol Use: None Hx Substance Use: No Substance Use Type: Reports: None Hx Tobacco Use: No Smoking Status (MU): Never Smoked Tobacco Review of Systems Negative: Fever Respiratory: Other - POSITIVE - INCREASED WORK OF BREATHING Positive: Cough Positive: Vomiting, Diarrhea All Other Systems Reviewed And Are Negative: Yes Physical Exam - Summary Physical Exam Summary: Vital Signs Reviewed: Yes A+Ox3, increased wob, audible wheeze Eyes: Conjunctiva Clear, SHERRI. EOM intact and full ENT: Hearing grossly normal TM x 2 clear, mmoist, uvula midline, no exudate, no erythema Neck: Positive: Supple Respiratory: Positive: No respiratory distress, No accessory muscle use , increased RR, scattered audible wheeze, + accessory muscle use Cardiovascular: RRR nl s1, s2 no m/r CBT <2 sec 2+ edema b/l feet and LE b/l abd soft + BS nt/nd no guarding, no distension Musculoskeletal Exam: JON x 4 without difficulty Strength Intact, ROM Intact Neurological: Positive: Alert, + sensation throughout, Psychological: Positive: Normal Response To Family Skin: Positive: no rash, no ecchymosis Triage Information Reviewed: Yes Vital Signs On Initial Exam: Initial Vitals Temp Pulse Resp BP Pulse Ox 99.0 F 70 22 198/107 86 03/08/19 11:08 03/08/19 11:08 03/08/19 11:08 03/08/19 11:08 03/08/19 11:08 Diagnostics - Vital Signs Vital Signs Temp Pulse Resp BP Pulse Ox 03/08/19 11:08 99.0 F 70 22 198/107 86 - Laboratory Result Diagrams: 03/08/19 11:36 03/08/19 11:36 Lab Statement: Any lab studies that have been ordered have been reviewed, and results considered in the medical decision making process. - Radiology CXR Radiology Interpretation Completed By: Radiologist Summary of Radiographic Findings: IMPRESSION: #. Mild pulmonary vascular congestion and interstitial edema. THIS REPORT WAS REVIEWED BY DR. TREJO. - EKG 1127 Cardiac Rate: NL - rate of 66 BPM EKG Rhythm: Sinus Rhythm ST Segment: Normal Summary of EKG Findings: EKG showed sinus rhythm with rate of 66 BPM, prolonged QT, no STEMI Re-Evaluation - Re-Evaluation First Eval Re-Evaluation Time: 12:24 Comment: Nurse Pauline notifies of trop 0.04 at this time. Second Eval Re-Evaluation Time: 12:40 Comment: reviewed labs with pt and daughter. pt markedly improved - RR 28, BP mildly improved. reviewed with pt and family - will d/w hospitalist Course/Dx - Course Course Of Treatment: Patient presents to the emergency department with her daughter. Patient is an 84-year-old female with a history of paroxysmal a tib- fib, hypertension, CHF. Patient with 24 hours progressive shortness of breath and wheeze. Patient has oxygen that she is as needed has been using more lately. Patient denies fevers or chills. Patient is not taking her medication for the last evening or this morning. On exam vital signs reveal hypoxia on her baseline 2 L and significant hypertension. Patient with audible wheezing and increased respiratory rate. Patient with an intermittent cough. On exam patient with scattered wheezes throughout her lungs. Patient did trigger elevated MEWS score triage. Low suspicion for infection but will culture check a lactic check urine and chest x-ray. We'll give patient hydralazine as well as IV Lasix. Suspect this is more likely congestive heart failure however pneumonia is possible. We'll also check a flu. Patient and her daughter comfortable in agreement with plan. - Diagnoses Provider Diagnoses: CHF (congestive heart failure), SOB (shortness of breath) - Physician Notifications Discussed Care of Patient With: Tracey Palacios - accepting admission Time Discussed With Above Provider: 12:58 Instructed by Provider To: Other - Patient's case was discussed with Dr. Palacios. Dr. Palacios accepts for admission. Discharge - Sign-Out/Discharge Documenting (check all that apply): Patient Departure - admit Patient Received Moderate/Deep Sedation with Procedure: No - Discharge Plan Condition: Good Disposition: ADMITTED TO [facility] Referrals: Kathy Forde MD [Primary Care Provider] - - Billing Disposition and Condition Condition: GOOD Disposition: Admitted to [facility] - Attestation Statements Document Initiated by Christopher: Yes Documenting Scribe: AMY QUIROS Provider For Whom Elenie is Documenting (Include Credential): CELESTINE TREJO MD Scribe Attestation: AMY Vitale, scribed for CELESTINE TREJO MD on 03/08/19 at 1308. Scribe Documentation Reviewed: Yes Provider Attestation: The documentation as recorded by the AMY parks accurately reflects the service I personally performed and the decisions made by me, CELESTINE TREJO MD Status of Scribe Document: Viewed
[2019-03-08] MEDS ORDERED: Furosemide IV* 10 MG/ML 2 ML VIAL (20 MG) IV SLOW PU ONE (11:46)
[2019-03-08] MEDS ORDERED: hydrALAZINE IV* 20 MG/ML VIAL IV SLOW PU ONE (11:47)
[2019-03-08 11:53] LABS: Influenza A Molecular NEGATIVE (Negative); Influenza B Molecular NEGATIVE (Negative)
[2019-03-08 12:07] LABS: Activated Partial Thrombo Time 29.7 seconds (26.0-36.3); INR 1.27 (0.82-1.09)
[2019-03-08] MEDS ORDERED: Levalbuterol 1.25MG/0.5ML NEB INH ONE (12:07)
[2019-03-08 12:13] LABS: ALT 16 U/L (7-52); AST 25 U/L (13-39); Albumin 4.3 g/dL (3.2-5.2); Albumin/Globulin Ratio 1.5 (1-3); Alkaline Phosphatase 126 U/L (34-104); Anion Gap 9 mmol/L (2-11); Blood Urea Nitrogen 16 mg/dL (6-24); CO2 Carbon Dioxide 27 mmol/L (22-32); Calcium 9.5 mg/dL (8.6-10.3); Chloride 102 mmol/L (101-111); Creatine Kinase 71 U/L (10-223); EGFR African American 50.3 (>60); EGFR Non-African American 41.6 (>60); Globulin 2.9 g/dL (2-4); Glucose 141 mg/dL (70-100); Potassium 4.1 mmol/L (3.5-5.0); Sodium 138 mmol/L (135-145); Total Protein 7.2 g/dL (6.4-8.9)
[2019-03-08 12:20] LABS: Troponin I 0.04 ng/mL (<0.04)
[2019-03-08 12:23] LABS: Hematocrit 32 % (35-47); Hemoglobin 9.6 g/dL (12.0-16.0); Mean Corpuscular HGB Conc 31 g/dL (31-36); Mean Corpuscular Hemoglobin 19 pg (27-31); Mean Corpuscular Volume 63 fL (80-97); Mean Platelet Volume 8.4 fL (7.4-10.4); Platelet Count 193 10^3/uL (150-450); Red Cell Distribution Width 19 % (10.5-15); White Blood Count 10.3 10^3/uL (3.5-10.8)
[2019-03-08 12:41] LABS: Urine Appearance Clear; Urine Bacteria Absent (Absent); Urine Bilirubin Negative (Negative); Urine Blood 1+ (Negative); Urine Color Yellow; Urine Glucose Negative (Negative); Urine Ketones Negative (Negative); Urine Nitrite Negative (Negative); Urine Protein 1+(30 mg/dL) (Negative); Urine Red Blood Cell 1+(3-5/hpf) (Absent); Urine Specific Gravity 1.011 (1.010-1.030); Urine Urobilinogen Negative (Negative); Urine White Blood Cell Absent (Absent)
[2019-03-08 13:01] LABS: Immature Granulocytes 2 % (0-9); Lymphocytes % 5 %; Monocytes % 3 %; Neutrophil % 88 %
[2019-03-08 13:04] LABS: Microcytosis 2+
[2019-03-08 13:05] LABS: ABS Neutrophils 9.3 10^3/ul (1.5-7.7)
[2019-03-08 13:06] LABS: ABS Basophils 0.1 10^3/ul (0-0.2); ABS Eosinophils 0.1 10^3/ul (0-0.6)
[2019-03-08] MEDS ORDERED: Ondansetron INJ* 2 MG/ML VIAL IV PRN (13:50)
[2019-03-08] MEDS ORDERED: Acetaminophen TAB* 325 MG PO PRN (13:50)
[2019-03-08 15:26] LABS: TSH (Thyroid Stimulating Horm) 0.63 mcIU/mL (0.34-5.60)
--- NOTE | 2019-03-08 15:53 | HP ---
CC: Dr. Kathy Forde * ADMISSION HISTORY AND PHYSICAL: DATE OF ADMISSION: 03/08/19 PRIMARY CARE PROVIDER: Dr. Kathy Forde. MY ATTENDING WHILE IN THE HOSPITAL: Dr. Tracey Palacios.* (DICTATED BY BETO PEREZ) CHIEF COMPLAINT: Shortness of breath x1 day. HISTORY OF PRESENT ILLNESS: Ms. Madison is an 84-year-old female with past medical history significant for heart failure, reduced ejection fraction, most recent EF 40% to 45%; high blood pressure; diabetes mellitus, type 2; paroxysmal atrial fibrillation, on amiodarone, who presents to the emergency department after yesterday having one episode of diarrhea without blood or abdominal pain and then last night developed a cough, shortness of breath, as well as nausea and vomiting. The patient states she was unable to take any of her medications yesterday or this morning as she was concerned she would vomit them up. The patient denies any chest pain. The patient has shortness of breath. The patient usually is able to walk over 100 feet without difficulty. The patient is unable to walk greater than approximately 20 feet today without having to stop and get short of breath. The patient has increased urinary frequency. The patient denies nocturia, hematuria. The patient has no fevers or chills. No dysuria. The patient states this does not feel like when she had previous heart failure exacerbations in September of last year. The patient denies any palpitations. The patient has been in normal sinus rhythm since her most recent followup with her computational scientist to her knowledge. The patient has no recent sick contacts. The patient is negative for flu. The patient had no improvement with levalbuterol nebulizer. The patient denies back pain. The patient does not check her blood pressure at home. Due to concerns for heart failure exacerbation and respiratory failure, we are asked to evaluate the patient for admission to the hospital. PAST MEDICAL HISTORY: Heart failure, reduced ejection fraction, most recent EF 40% to 45%; hypertension; obstructive sleep apnea, does not use CPAP; diabetes mellitus, type 2; thalassemia; hypothyroidism; paroxysmal atrial fibrillation; gout; chronic kidney disease. PAST SURGICAL HISTORY: Appendectomy, hysterectomy, lumbar diskectomy, cardiac catheterization. MEDICATIONS: 1. Synthroid 125 mcg p.o. daily. 2. Apixaban 5 mg p.o. b.i.d. 3. Amiodarone 200 mg p.o. daily. 4. Lasix 20 mg p.o. daily. 5. Allopurinol 100 mg p.o. daily. 6. Irbesartan 300 mg p.o. daily. 7. Zoloft 50 mg p.o. daily. 8. Metoprolol succinate 50 mg p.o. daily. 9. Lipitor 40 mg p.o. daily. 10. Melatonin 1 tab p.o. at bedtime. ALLERGIES: LISINOPRIL. FAMILY HISTORY: The patient's father at 55 of a heart attack. The patient 's mother at 85 of complications of Parkinson's. The patient had a sister who of breast cancer, a brother who of prostate cancer, a sister who of lung cancer, and another brother who of bone cancer. REVIEW OF SYSTEMS: A 14-point review of systems was reviewed and is negative except as above in the HPI. PHYSICAL EXAMINATION GENERAL: The patient is an 84-year-old female, who appears stated age and sitting in the bed with significantly increased work of breathing. HEENT: Head: Normocephalic, atraumatic. Sclerae anicteric. No conjunctival injection. Nasal mucosa moist. Oral mucosa moist. No pharyngeal erythema, discharge, or exudate. NECK: Supple, nontender. No lymphadenopathy. No carotid bruits auscultated. No JVD. RESPIRATORY: Rales heard in bilateral lower lobes, rhonchi heard throughout. CARDIAC: Regular rate and rhythm. No clicks, murmurs, gallops, or rubs. Pulses are 2+ in the bilateral dorsalis pedis, posterior tibial, and radial areas. 1+ bilateral lower extremity pitting edema noted. No bilateral calf tenderness. ABDOMEN: Soft, nontender, nondistended. Bowel sounds present and normoactive in all 4 quadrants. No hepatosplenomegaly. No abdominal bruits auscultated. No hepatojugular reflux. GENITOURINARY: No suprapubic or CVA tenderness. NEURO: Cranial nerves II through XII intact. No focal deficits. Alert and oriented x3. PSYCHIATRIC: Pleasant and cooperative. SKIN: Clean, dry, and intact. No rash. DIAGNOSTIC STUDIES/LAB DATA: White blood cell count 10.3, hemoglobin 9.6, platelet count 193. INR 1.27, aPTT 29.7. Sodium 138, potassium 4.1, chloride 102, carbon dioxide 27, anion gap, BUN 16, creatinine 1.23, glucose 141, lactic acid 1.6, calcium 9.5. Bilirubin 0.9, AST 25, ALT 26, alkaline phosphatase 126. Creatine kinase 71. Troponin I 0.04. BNP 1123. Protein 7.2, albumin 4.3 , globulin 2.9. Urine: Yellow, clear, positive protein, positive blood, positive red blood cells. Influenza A and B negative. Studies: Chest x-ray read as mild interstitial pulmonary edema. EKG shows normal sinus rhythm, QTc of 525, prolonged MI interval. No ST- segment elevation or depression. Left axis deviation, incomplete right bundle branch block. Compared to previous exam, PACs are less frequent, no other significant changes. ASSESSMENT AND PLAN: Impression: Ms. Madison is an 84-year-old female with past medical history significant for heart failure with reduced ejection fraction, hypertension, obstructive sleep apnea, diabetes, paroxysmal atrial fibrillation, and chronic kidney disease, who presents to the emergency department with cough, wheezing, nausea, vomiting, and shortness of breath x1 day. The patient has a slightly elevated troponin, interstitial edema on chest x-ray, and significant wheezing on exam. The patient will be admitted to the hospital for heart failure exacerbation and likely viral bronchitis. 1. Acute on chronic heart failure, reduced ejection fraction. The patient appears fluid overloaded. The patient has swelling in her lower extremities. The patient has rales in her lungs and fluid overload on her chest x-ray. The patient also has a severely elevated BNP. These changes are likely related to several factors, the patient missing her diuretics, increase in her blood pressure due to rebound hypertension from missing her metoprolol and increased strain on her heart due to likely underlying viral process. The patient received 20 mg of Lasix in the emergency department. The patient will be continued on 40 mg IV twice daily. The patient's blood pressure is significantly elevated. The patient's creatinine is at baseline. We will monitor the patient's BMP closely, supplement potassium as needed. The patient is currently in normal sinus rhythm. We will attempt to keep the patient's electrolytes above 4 and 2 as being in atrial fibrillation has previously sent her into heart failure exacerbation. The patient will be dosed with her metoprolol now. The patient received 1 dose of hydralazine IV while in the emergency department as well as levalbuterol inhaler, which does not seem to help; however, the patient will be continued on levalbuterol inhaler for her wheezing, which is likely somewhat cardiac related and somewhat related to acute bronchitis. The patient will have her echocardiogram updated. It does not appear that this was done after her most recent admission. The patient will have metoprolol tartrate IV as needed for blood pressures greater than 180. The patient will be continued on her other heart failure medications including Avapro and metoprolol. The patient was difficult to diurese last time she was in the hospital. The patient will have adjunct such as spironolactone and metolazone added on as needed. 2. Viral bronchitis. The patient has upper respiratory symptoms as well as lower respiratory symptoms and diarrhea and nausea/vomiting. These are most consistent with an underlying viral process that she likely acquired with exposure to a large number of people at a recent democrat. The patient will have levalbuterol as needed for wheezing. The patient will have Zofran as needed for nausea. The patient is not currently nauseated and should be able to take her medications as prescribed. 3. Acute respiratory failure with hypoxia. The patient is currently requiring 3 L of oxygen and is saturating in the mid 90s. The patient may need escalation of her oxygen therapy if she appears to be fatiguing. The most likely cause of this is heart failure exacerbation. The patient will have Lasix and levalbuterol as above. 4. Diabetes mellitus, type 2. This is under good control on no medications. 5. Obstructive sleep apnea. The patient is noncompliant with CPAP. The patient will be on oxygen at night. 6. Hypertension. The patient is markedly hypertensive in the hospital. This is coming down with hydralazine. The patient will be given her home metoprolol and metoprolol IV as needed for elevated blood pressures. 7. Atrial fibrillation. The patient is currently in normal sinus rhythm. Continue the patient's amiodarone. 8. Elevated troponin. This is likely related to demand ischemia. Continue to trend to peak. 9. Hypothyroidism. Continue the patient's levothyroxine. Check the patient's TSH. 10. DVT prophylaxis: The patient is on apixaban. 11. FEN: The patient will have a heart-healthy diet, decaf okay. TIME SPENT: Approximately 60 minutes was spent on the admission of this patient. This plan was discussed with my attending, Dr. Tracey Palacios, and she is in agreement. BETO PEREZ [id number]/[facility] #: [id number] AGUILA
[2019-03-08] MEDS ORDERED: Perflutren Lipid Microsphere* 3 ML VIAL ONE (15:54)
[2019-03-08] MEDS: Furosemide IV* 10 MG/ML VIAL (40 MG) IV SLOW PU SCH (16:42)
[2019-03-08] MEDS: Metoprolol Succinate XL TAB* 50 MG PO SCH (16:43)
[2019-03-08 17:09] LABS: Troponin I 0.06 ng/mL (<0.04)
[2019-03-08] MEDS: Atorvastatin* 40 MG TAB PO SCH (17:48)
--- NOTE | 2019-03-08 18:04 | ECHO ---
*[facility]* [place] [address] Fax #: [phone] Transthoracic Echocardiogram Patient: Los, Height: 68 in / Elvia Le 172.7 cm : 1935 Weight: 204.6 lb / Study Date: 03/08/2019 93 kg Age: 84 BP: 162 / 71 Gender: F BMI/BSA: 31.2 kg/m^2 HR: 56 bpm / 2.07 m^2 *Cigar Bander: * Jaquelin Mercedes [facility] *Referring Physician: * Jonathan Ruiz *Reading Physician: * Dariela Bergeron MD Indications: Congestive Heart Failure. History: Coronary artery disease. Congestive heart failure. PMH: Myocardial infarction. Risk factors: Hypertension. Diabetes mellitus. Labs, prior tests, procedures, and surgery: Catheterization with coronary intervention. Conclusions Summary: 1. Left ventricle: The cavity size is normal. Wall thickness is moderately increased. Systolic function is normal. The estimated ejection fraction is 50-55%. Features are consistent with a pseudonormal left ventricular filling pattern, with concomitant abnormal relaxation and increased filling pressure (grade 2 diastolic dysfunction). 2. Right ventricle: The cavity size is normal. Wall thickness is moderately increased. Systolic pressure is severely increased. The estimated peak pressure is 71 mm Hg. 3. Mitral valve: There is mild regurgitation. 4. Tricuspid valve: There is mild regurgitation. 5. Ascending aorta: The ascending aorta is mildly dilated: 3.9 cm. 6. Compared with prior echocardiogram of 09/19/18, prior ejection fraction was 40-45%, mitral regurgitation and tricuspid regurgitation are stable, elevated pulmonary artery pressure is new. Ascending aorta previously measured at 4.2 cm. Study data: Transthoracic echocardiogram. Procedure: Transthoracic echocardiography was performed. Image quality was suboptimal. Intravenous contrast (Definity, 2 mls) was administered. Image enhancement administered by Yamilet Seaman RN. Complete 2D, spectral Doppler, and color flow Doppler. Location: Bedside. Patient status: Inpatient. Rhythm: Normal sinus rhythm. Findings Left ventricle: The cavity size is normal. Wall thickness is moderately increased. Systolic function is normal. The estimated ejection fraction is 50-55%. Wall motion is normal; there are no regional wall motion abnormalities. Features are consistent with a pseudonormal left ventricular filling pattern, with concomitant abnormal relaxation and increased filling pressure (grade 2 diastolic dysfunction). Right ventricle: The cavity size is normal. Wall thickness is moderately increased. Systolic function is normal. Systolic pressure is severely increased. The estimated peak pressure is 71 mm Hg. Ventricular septum: There is septal flattening of the interventricular septum consistent with RV volume or pressure overload. Left atrium: The atrium is moderately dilated. Right atrium: The atrium is normal in size. Mitral valve: The annulus is mildly calcified. The leaflets are mildly thickened. There is no evidence of stenosis. There is mild regurgitation. The peak diastolic gradient is 3.9 mm Hg. Aortic valve: The valve is trileaflet. The leaflets are normal thickness. There is no evidence of stenosis. There is no significant regurgitation. The ratio of LVOT to aortic valve peak velocity is 0.59. The ratio of LVOT to aortic valve mean velocity is 0.52. The mean systolic gradient is 5.0 mm Hg. The peak systolic gradient is 9.0 mm Hg. Tricuspid valve: The leaflets are normal thickness. There is mild regurgitation. Pulmonic valve: The leaflets are normal thickness. There is trivial regurgitation. The peak systolic gradient is 5.0 mm Hg. Aorta: Aortic root: The aortic root is appears normal. Ascending aorta: The ascending aorta is mildly dilated. Pericardium: There is no significant pericardial effusion, study c/w pericardial fat pad. Pulmonary arteries: Not well visualized. Systemic veins: Inferior vena cava: The vessel is dilated. The respirophasic diameter changes are blunted (< 50%). Measurements Left ventricle Value Ref Aortic valve continued Value Ref MERNA, LAX 4.4 cm 3.8 - 5.2 Mean grad, S 5.0 mm Hg ----- ESD, LAX 3.4 cm 2.2 - 3.5 Peak grad, S 9.0 mm Hg ----- FS, LAX (L) 23 % 27 - 45 PW, ED, LAX (H) 1.3 cm 0.6 - 0.9 Mitral valve Value Ref EF (L) 46 % 54 - 74 Peak E 0.99 m/sec ----- E', lat kiley, TDI (L) 5.1 cm/sec >=10.0 Peak A 0.5 m/sec - ---- E/e', lat kiley, 19 Decel time 172 ms ---- - TDI Peak grad, D 3.9 mm Hg ----- Peak E/A ratio 2 ----- LVOT Value Ref Peak esther, S 0.9 m/sec Pulmonic valve Value Ref Mean grad, S 1 mm Hg Peak v, S 1.07 m/sec ----- Peak grad, S 5.0 mm Hg ----- Ventricular septum Value Ref IVS, ED, LAX (H) 1.7 cm 0.6 - 0.9 Tricuspid valve Value Ref TR peak v (H) 3.9 m/sec <=2.8 Right ventricle Value Ref Peak RV-RA grad, S 61 mm Hg ----- AW thickness, ED (H) 1.1 cm 0.1 - 0.5 MERNA, LAX 2.7 cm Aortic root Value Ref Pressure, S 76 mm Hg Root diam 3.3 cm <4.2 Left atrium Value Ref Ascending aorta Value Ref AP dim, ES (H) 4.70 cm 2.70 - AAo AP diam, S 3.9 cm ----- 3.80 ML dim, A4C 4.7 cm Aortic arch Value Ref SI dim, A4C 5.6 cm Arch diam 2.7 cm ----- Vol/bsa, ES, A/L (H) 43 ml/m^2 16 - 34 Decending aorta Value Ref Right atrium Value Ref Harrison peak esther 0.47 m/sec ----- SI dim, ES 5.3 cm 3.4 - 5.3 ML dim, ES, A4C 4.3 cm 2.6 - 4.4 Pulmonary artery Value Ref Estimated RAP 15 mm Hg Pressure, S 71.0 mm Hg ----- Aortic valve Value Ref Inferior vena cava Value Ref Kiley diam, ED 2.2 cm Diam 2.8 cm ----- Peak v, S 1.52 m/sec VTI, S 32.2 cm Legend: (L) and (H) chantell values outside specified reference range. Prepared and electronically signed by Dariela Bergeron MD 03/08/2019 18:03
[2019-03-08 20:15] LABS: Troponin I 0.07 ng/mL (<0.04)
[2019-03-08] MEDS: Apixaban* 5 MG TAB PO SCH (20:52)
[2019-03-08] MEDS: Melatonin 3 MG TAB PO SCH (20:52)
[2019-03-08] MEDS: Metoprolol Tartrate IV* 1 MG/ML 5 ML VIAL IV PRN (20:53)
[2019-03-08] MEDS ORDERED: Iodixanol* (CONTRAST) 320 MG/ML 100 ML SDV IV ONE (21:38)
[2019-03-09 00:08] LABS: Troponin I 0.08 ng/mL (<0.04)
[2019-03-09] MEDS: Metoprolol Tartrate IV* 1 MG/ML 5 ML VIAL IV PRN (03:52)
[2019-03-09] MEDS: Levothyroxine TAB* 125 MCG TAB PO SCH (06:09)
[2019-03-09 07:23] LABS: BUN/Creatinine Ratio 13.2 (8-20); Calcium 9.4 mg/dL (8.6-10.3); EGFR African American 54.9 (>60); EGFR Non-African American 45.4 (>60); Magnesium 2.1 mg/dL (1.9-2.7); Potassium 3.5 mmol/L (3.5-5.0)
[2019-03-09] MEDS: Losartan TAB* 25 MG PO SCH (08:04)
[2019-03-09] MEDS: Metoprolol Succinate XL TAB* 50 MG PO SCH (08:04)
[2019-03-09] MEDS: Furosemide IV* 10 MG/ML VIAL (40 MG) IV SLOW PU SCH ×2 (08:04→18:09)
[2019-03-09] MEDS: Amiodarone TAB* 200 MG PO SCH (08:05)
[2019-03-09] MEDS: Allopurinol TAB* 100 MG PO SCH (08:05)
[2019-03-09] MEDS: Sertraline* 50 MG TAB PO SCH (08:05)
[2019-03-09] MEDS: Apixaban* 5 MG TAB PO SCH ×2 (08:05→21:14)
[2019-03-09 08:21] LABS: Hematocrit 31 % (35-47); Hemoglobin 9.5 g/dL (12.0-16.0); Mean Corpuscular HGB Conc 31 g/dL (31-36); Mean Corpuscular Hemoglobin 19 pg (27-31); Mean Corpuscular Volume 62 fL (80-97); Mean Platelet Volume 8.9 fL (7.4-10.4); Platelet Count 196 10^3/uL (150-450); Red Blood Count 4.96 10^6 /uL (3.70-4.87); Red Cell Distribution Width 18 % (10.5-15); White Blood Count 8.8 10^3/uL (3.5-10.8)
[2019-03-09] MEDS: Levalbuterol 1.25MG/0.5ML NEB INH PRN ×2 (11:25→18:21)
[2019-03-09 13:09] LABS: ABS Neutrophils 7.5 10^3/ul (1.5-7.7)
[2019-03-09 13:12] LABS: Microcytosis 2+
[2019-03-09] MEDS: Atorvastatin* 40 MG TAB PO SCH (18:05)
--- NOTE | 2019-03-09 18:15 | PN ---
Subjective Date of Service: 03/09/19 Interval History: Patient seen and examined. Daughters at bedside. Patient resting, easily arousable. Remains continuous O2 dependence. Denies chest pain, no acute SOB, remains fatigued. Objective Active Medications: Acetaminophen (Tylenol Tab*) 650 mg PO Q6H PRN PRN Reason: FEVER/PAIN Allopurinol (Zyloprim Tab*) 100 mg PO DAILY [facility] Last Admin: 03/09/19 08:05 Dose: 100 mg Amiodarone HCl (Cordarone Tab*) 200 mg PO QAM [facility] Last Admin: 03/09/19 08:05 Dose: 200 mg Apixaban (Eliquis*) 5 mg PO BID [facility] Last Admin: 03/09/19 08:05 Dose: 5 mg Atorvastatin Calcium (Lipitor*) 40 mg PO QPM [facility] Last Admin: 03/08/19 17:48 Dose: 40 mg Furosemide (Lasix Iv*) 40 mg IV SLOW PU 0800,1700 [facility] Last Admin: 03/09/19 08:04 Dose: 40 mg Levalbuterol HCl (Xopenex 1.25 Mg/0.5 Ml Neb.Rivka*) 1.25 mg INH Q6H PRN PRN Reason: SOB/WHEEZING Last Admin: 03/09/19 11:25 Dose: 1.25 mg Levothyroxine Sodium (Synthroid Tab*) 125 mcg PO 0600 [facility] Last Admin: 03/09/19 06:09 Dose: 125 mcg Losartan Potassium (Cozaar Tab*) 100 mg PO DAILY [facility] Last Admin: 03/09/19 08:04 Dose: 100 mg Melatonin (Melatonin) 3 mg PO BEDTIME [facility] Last Admin: 03/08/19 20:52 Dose: 3 mg Metoprolol Succinate (Toprol Xl Tab*) 50 mg PO DAILY [facility] Last Admin: 03/09/19 08:04 Dose: 50 mg Metoprolol Tartrate (Lopressor Iv*) 5 mg IV Q6H PRN PRN Reason: BLOOD PRESSURE Last Admin: 03/09/19 03:52 Dose: 5 mg Ondansetron HCl (Zofran Inj*) 4 mg IV Q6H PRN PRN Reason: NAUSEA Last Admin: 03/09/19 02:39 Dose: 4 mg Sertraline HCl (Zoloft*) 50 mg PO DAILY [facility] Last Admin: 03/09/19 08:05 Dose: 50 mg Vital Signs - 8 hr 03/09/19 03/09/19 03/09/19 11:06 11:30 14:15 Temperature 98.3 F 98.1 F Pulse Rate 47 50 48 Respiratory 30 18 28 Rate Blood Pressure 133/75 130/60 (mmHg) O2 Sat by Pulse 99 98 99 Oximetry Oxygen Devices in Use Now: Nasal Cannula Appearance: alert, NAD Eyes: No Scleral Icterus, PERRLA Ears/Nose/Mouth/Throat: NL Teeth, Lips, Gums, Mucous Membranes Moist Neck: NL Appearance and Movements; NL JVP, Trachea Midline Respiratory: Symmetrical Chest Expansion and Respiratory Effort, - - diminished based, bilateral rales Cardiovascular: NL Sounds; No Murmurs; No JVD, RRR, No Edema Abdominal: NL Sounds; No Tenderness; No Distention Extremities: No Edema, No Clubbing, Cyanosis Neurological: Alert and Oriented x 3 Nutrition: Taking PO's Result Diagrams: 03/09/19 06:14 03/09/19 06:14 Microbiology and Other Data: Microbiology 03/08/19 11:51 Aerobic Blood Culture - Preliminary Blood Venous No Growth Day 1 Anaerobic Blood Culture - Preliminary No Growth Day 1 03/08/19 11:36 Aerobic Blood Culture - Preliminary Blood Venous No Growth Day 1 Anaerobic Blood Culture - Preliminary No Growth Day 1 Diagnostic Imaging: Patient Name: ELVIA SAHU Medical Record#: [id number] Ordering Physician: Jonathan PÉREZ Acct.#: [id number] : 1935 Age: 84 Sex: F Location: [address] [place] [address]/TELEMETRY Exam Date: 03/08/191906 ADM Status: ADM IN Order Information: CTA CHEST Accession Number: [id number] CPT: 37422 EXAM: CT Angiography Chest With Contrast EXAM DATE/TIME: 03/08/2019 9:27 PM CLINICAL HISTORY: 84 years old, female; Signs and symptoms; Shortness of breath; Additional info: Elevated troponin, SOB, rv pressure overload TECHNIQUE: Imaging protocol: Axial computed tomographic angiography images of the chest with intravenous contrast using CT angiography protocol. Coronal and sagittal reformatted images were created and reviewed. 3D rendering: MIP reconstructed images were created and reviewed. Radiation optimization: All CT scans at this facility use at least one of these dose optimization techniques: automated exposure control; mA and/or kV adjustment per patient size (includes targeted exams where dose is matched to clinical indication); or iterative reconstruction. Contrast material: VISIPAQUE 320; Contrast volume: 82 ml; Contrast route: IV; COMPARISON: CTA CHEST CTA CHEST 05/02/2018 10:47 AM FINDINGS: Pulmonary arteries: No evidence of acute pulmonary embolic disease. On the previous CT scan of 05/02/2018, there was a subsegmental defect involving the left lower lobe pulmonary artery. This is not seen on the current study. Aorta: Atheromatous changes involving the thoracic aorta. Ectasia of the ascending aorta and measures 4.4 cm. this ends at the right innominate artery. The descending thoracic aorta below the renetta measures 3 cm. Lungs: No pulmonary consolidation. Pleural space: Small right pleural effusion with associated atelectasis. Heart: Cardiomegaly. Moderate coronary calcification. No pericardial effusion or thickening. Lymph nodes: No mediastinal adenopathy. Bones/joints: The thoracic cage is intact. Spondylotic changes of the thoracic spine. Anterior bridging osteophyte at the mid to lower thoracic spine. No evidence of a fracture or pathologic subluxation. Soft tissues: Unremarkable. IMPRESSION: 1. No evidence of acute pulmonary embolic disease. The previously noted subsegmental defect in left lower lung has cleared. 2. Small right pleural effusion which is new since the prior CT scan associated with basilar atelectasis. 3. Cardiomegaly. 4. Ectasia of the ascending aorta measuring approximately 4.4 cm. Recommend yearly followup. *[facility]* [place] [address] Fax #: [phone] Transthoracic Echocardiogram Patient: Los, Height: 68 in / Elvia Le 172.7 cm : 1935 Weight: 204.6 lb / Study Date: 03/08/2019 93 kg Age: 84 BP: 162 / 71 Gender: F BMI/BSA: 31.2 kg/m^2 HR: 56 bpm / 2.07 m^2 *Contracts Analyst: * Jaquelin Mercedes [facility] *Referring Physician: * Jonathan Ruiz *Reading Physician: * Dariela Bergeron MD Indications: Congestive Heart Failure. History: Coronary artery disease. Congestive heart failure. PMH: Myocardial infarction. Risk factors: Hypertension. Diabetes mellitus. Labs, prior tests, procedures, and surgery: Catheterization with coronary intervention. Conclusions Summary: 1. Left ventricle: The cavity size is normal. Wall thickness is moderately increased. Systolic function is normal. The estimated ejection fraction is 50-55%. Features are consistent with a pseudonormal left ventricular filling pattern, with concomitant abnormal relaxation and increased filling pressure (grade 2 diastolic dysfunction). 2. Right ventricle: The cavity size is normal. Wall thickness is moderately increased. Systolic pressure is severely increased. The estimated peak pressure is 71 mm Hg. 3. Mitral valve: There is mild regurgitation. 4. Tricuspid valve: There is mild regurgitation. 5. Ascending aorta: The ascending aorta is mildly dilated: 3.9 cm. 6. Compared with prior echocardiogram of 09/19/18, prior ejection fraction was 40-45%, mitral regurgitation and tricuspid regurgitation are stable, elevated pulmonary artery pressure is new. Ascending aorta previously measured at 4.2 cm. Assess/Plan/Problems-Billing Assessment: This is an 84 year old female with history of CAD, PAF, chronic diastolic HF that presented to the ER with complaints of shortness of breath and fatigue, found to be in acutely decompensated heart failure. - Patient Problems (1) Acute on chronic diastolic (congestive) heart failure Code(s): I50.33 - ACUTE ON CHRONIC DIASTOLIC (CONGESTIVE) HEART FAILURE SNOMED Code(s): 640132854 Comment: - BNP = 1123, significantly elevated from previous admission in September - Increased O2 requirement (uses PRN and at night only at home, now on continuous) - Continue IV lasix daily, may need metolazone if not progressing - Continue strict I&O, daily weights and low sodium diet - ECHO as above, no signficant changes, may consider cardiology consult if patient decompensates, but she is currently hemodynamically stable (2) Acute respiratory failure with hypoxemia Code(s): J96.01 - ACUTE RESPIRATORY FAILURE WITH HYPOXIA SNOMED Code(s): 991019698 Comment: - 2/2 acute on chronic diastolic HF - Demand ischemia noted with mildly elevated trops - Wean O2 as tolerated, may have additional O2 needs at discharge (3) CKD (chronic kidney disease) Code(s): N18.9 - CHRONIC KIDNEY DISEASE, UNSPECIFIED SNOMED Code(s): 823305622 Comment: - Renal function at basline, monitor while diuresing (4) PAF (paroxysmal atrial fibrillation) Code(s): I48.0 - PAROXYSMAL ATRIAL FIBRILLATION SNOMED Code(s): 892446626 Comment: - Currently sinus debbi - continue metoprolol, amio and eliquis (5) History of coronary artery disease Code(s): Z86.79 - PERSONAL HISTORY OF OTHER DISEASES OF THE CIRCULATORY SYSTEM SNOMED Code(s): 151628095 Comment: - PCI/stents in the past - No chest pain - continue statin, BB, ARB (6) DVT prophylaxis Code(s): KXX9996 - SNOMED Code(s): 662567935 Comment: - On apixaban (7) DNR (do not resuscitate) Current Visit: No Status: Acute Status and Disposition: Inpatient for IV diuresis and stabilization.
[2019-03-09] MEDS: Melatonin 3 MG TAB PO SCH (21:15)
[2019-03-10] MEDS: Levothyroxine TAB* 125 MCG TAB PO SCH (05:44)
[2019-03-10 06:30] LABS: Troponin I 0.07 ng/mL (<0.04)
[2019-03-10] MEDS: Apixaban* 5 MG TAB PO SCH ×2 (08:30→21:11)
[2019-03-10] MEDS: Losartan TAB* 25 MG PO SCH (08:31)
[2019-03-10] MEDS: Allopurinol TAB* 100 MG PO SCH (08:31)
[2019-03-10] MEDS: Amiodarone TAB* 200 MG PO SCH (08:31)
[2019-03-10] MEDS: Furosemide IV* 10 MG/ML VIAL (40 MG) IV SLOW PU SCH ×2 (08:31→16:58)
[2019-03-10] MEDS: Sertraline* 50 MG TAB PO SCH (08:31)
[2019-03-10] MEDS: Metoprolol Succinate XL TAB* 50 MG PO SCH (08:34)
[2019-03-10] MEDS: Levalbuterol 1.25MG/0.5ML NEB INH PRN (08:40)
--- NOTE | 2019-03-10 14:57 | PN ---
Subjective Date of Service: 03/10/19 Interval History: VS: O2 2L, bradycardia Lab: trop elevated, but trend albert Pt states that she is still wheezing and coughing. She has had cough since Wednesday. She states that she has not been urinating much. Weight has decreased some. She has had no vomiting since admission. Denies CP, n/v, fever/chills. Continues to c/o SOB, wheeze, cough. Objective Active Medications: Acetaminophen (Tylenol Tab*) 650 mg PO Q6H PRN Allopurinol (Zyloprim Tab*) 100 mg PO DAILY [facility] Amiodarone HCl (Cordarone Tab*) 200 mg PO QAM [facility] Apixaban (Eliquis*) 5 mg PO BID [facility] Atorvastatin Calcium (Lipitor*) 40 mg PO QPM [facility] Furosemide (Lasix Iv*) 40 mg IV SLOW PU 0800,1700 [facility] Levalbuterol HCl (Xopenex 1.25 Mg/0.5 Ml Neb.Rivka*) 1.25 mg INH Q6H PRN Levothyroxine Sodium (Synthroid Tab*) 125 mcg PO 0600 [facility] Losartan Potassium (Cozaar Tab*) 100 mg PO DAILY [facility] Melatonin (Melatonin) 3 mg PO BEDTIME [facility] Metoprolol Succinate (Toprol Xl Tab*) 50 mg PO DAILY [facility] Metoprolol Tartrate (Lopressor Iv*) 5 mg IV Q6H PRN Ondansetron HCl (Zofran Inj*) 4 mg IV Q6H PRN Sertraline HCl (Zoloft*) 50 mg PO DAILY [facility] Vital Signs: Temp Pulse Resp BP Pulse Ox 98.2 F 49 20 156/69 100 03/10/19 15:37 03/10/19 15:37 03/10/19 15:37 03/10/19 15:37 03/10/19 15:37 Oxygen Devices in Use Now: Nasal Cannula Appearance: Pt is laying in bed with HOB elevated. She is audibly wheezing. She is chronically ill-appearing. Eyes: No Scleral Icterus, PERRLA Ears/Nose/Mouth/Throat: NL Teeth, Lips, Gums, Clear Oropharnyx, Mucous Membranes Moist Neck: NL Appearance and Movements; NL JVP, Trachea Midline Respiratory: Symmetrical Chest Expansion and Respiratory Effort - Wheeze throughout Cardiovascular: NL Sounds; No Murmurs; No JVD, No Edema - Bradycardia Abdominal: NL Sounds; No Tenderness; No Distention, No Hepatosplenomegaly, - - Obese Extremities: - - No LE edema Neurological: Alert and Oriented x 3 Result Diagrams: 03/09/19 06:14 03/09/19 06:14 Microbiology and Other Data: Microbiology 03/08/19 11:51 Aerobic Blood Culture - Preliminary Blood Venous No Growth Day 1 Anaerobic Blood Culture - Preliminary No Growth Day 1 03/08/19 11:36 Aerobic Blood Culture - Preliminary Blood Venous No Growth Day 1 Anaerobic Blood Culture - Preliminary No Growth Day 1 Diagnostic Imaging: Patient Name: ALDO SAHU Medical Record#: [id number] Ordering Physician: Jonathan PÉREZ Acct.#: [id number] : 1935 Age: 84 Sex: F Location: [address] [place] [address] MEDICAL/TELEMETRY Exam Date: 03/08/191906 ADM Status: ADM IN Order Information: CTA CHEST Accession Number: [id number] CPT: 10275 EXAM: CT Angiography Chest With Contrast EXAM DATE/TIME: 03/08/2019 9:27 PM CLINICAL HISTORY: 84 years old, female; Signs and symptoms; Shortness of breath; Additional info: Elevated troponin, SOB, rv pressure overload TECHNIQUE: Imaging protocol: Axial computed tomographic angiography images of the chest with intravenous contrast using CT angiography protocol. Coronal and sagittal reformatted images were created and reviewed. 3D rendering: MIP reconstructed images were created and reviewed. Radiation optimization: All CT scans at this facility use at least one of these dose optimization techniques: automated exposure control; mA and/or kV adjustment per patient size (includes targeted exams where dose is matched to clinical indication); or iterative reconstruction. Contrast material: VISIPAQUE 320; Contrast volume: 82 ml; Contrast route: IV; COMPARISON: CTA CHEST CTA CHEST 05/02/2018 10:47 AM FINDINGS: Pulmonary arteries: No evidence of acute pulmonary embolic disease. On the previous CT scan of 05/02/2018, there was a subsegmental defect involving the left lower lobe pulmonary artery. This is not seen on the current study. Aorta: Atheromatous changes involving the thoracic aorta. Ectasia of the ascending aorta and measures 4.4 cm. this ends at the right innominate artery. The descending thoracic aorta below the renetta measures 3 cm. Lungs: No pulmonary consolidation. Pleural space: Small right pleural effusion with associated atelectasis. Heart: Cardiomegaly. Moderate coronary calcification. No pericardial effusion or thickening. Lymph nodes: No mediastinal adenopathy. Bones/joints: The thoracic cage is intact. Spondylotic changes of the thoracic spine. Anterior bridging osteophyte at the mid to lower thoracic spine. No evidence of a fracture or pathologic subluxation. Soft tissues: Unremarkable. IMPRESSION: 1. No evidence of acute pulmonary embolic disease. The previously noted subsegmental defect in left lower lung has cleared. 2. Small right pleural effusion which is new since the prior CT scan associated with basilar atelectasis. 3. Cardiomegaly. 4. Ectasia of the ascending aorta measuring approximately 4.4 cm. Recommend yearly followup. *[facility]* [place] [address] Fax #: [phone] Transthoracic Echocardiogram Patient: Los, Height: 68 in / [facility] 172.7 cm : 1935 Weight: 204.6 lb / Study Date: 03/08/2019 93 kg Age: 84 BP: 162 / 71 Gender: F BMI/BSA: 31.2 kg/m^2 HR: 56 bpm / 2.07 m^2 *Silver Solution Mixer: * Jaquelin Mercedes [facility] *Referring Physician: * Jonathan Ruiz *Reading Physician: * Dariela Bergeron MD Indications: Congestive Heart Failure. History: Coronary artery disease. Congestive heart failure. PMH: Myocardial infarction. Risk factors: Hypertension. Diabetes mellitus. Labs, prior tests, procedures, and surgery: Catheterization with coronary intervention. Conclusions Summary: 1. Left ventricle: The cavity size is normal. Wall thickness is moderately increased. Systolic function is normal. The estimated ejection fraction is 50-55%. Features are consistent with a pseudonormal left ventricular filling pattern, with concomitant abnormal relaxation and increased filling pressure (grade 2 diastolic dysfunction). 2. Right ventricle: The cavity size is normal. Wall thickness is moderately increased. Systolic pressure is severely increased. The estimated peak pressure is 71 mm Hg. 3. Mitral valve: There is mild regurgitation. 4. Tricuspid valve: There is mild regurgitation. 5. Ascending aorta: The ascending aorta is mildly dilated: 3.9 cm. 6. Compared with prior echocardiogram of 09/19/18, prior ejection fraction was 40-45%, mitral regurgitation and tricuspid regurgitation are stable, elevated pulmonary artery pressure is new. Ascending aorta previously measured at 4.2 cm. Assess/Plan/Problems-Billing Assessment: This is an 84 year old female with history of CAD, PAF, chronic diastolic HF that presented to the ER with complaints of shortness of breath and fatigue, found to be in acutely decompensated heart failure. - Patient Problems (1) Acute on chronic diastolic (congestive) heart failure Comment: - BNP = 1123, significantly elevated from previous admission in September; daily weights with no significant change - Increased O2 requirement (uses PRN and at night only at home, now on continuous) - Continue IV lasix daily - Start metolazone - Continue strict I&O, daily weights and low sodium diet - ECHO as above, no signficant changes, may consider cardiology consult if patient decompensates, but she is currently hemodynamically stable (2) Acute respiratory failure with hypoxemia Comment: - 2/2 acute on chronic diastolic HF - Demand ischemia noted with mildly elevated trops - Wean O2 as tolerated, may have additional O2 needs at discharge (3) CKD (chronic kidney disease) Comment: - Renal function at basline, monitor while diuresing (4) PAF (paroxysmal atrial fibrillation) Comment: - Currently sinus debbi - Metoprolol with hold parameters - amio and eliquis (5) History of coronary artery disease Comment: - PCI/stents in the past - No chest pain - continue statin, BB, ARB (6) DVT prophylaxis Comment: - On apixaban (7) DNR (do not resuscitate) Status and Disposition: Inpatient for IV diuresis and stabilization.
[2019-03-10] MEDS: Atorvastatin* 40 MG TAB PO SCH (16:58)
[2019-03-10] MEDS: Melatonin 3 MG TAB PO SCH (21:11)
[2019-03-11] MEDS: Levothyroxine TAB* 125 MCG TAB PO SCH (05:20)
[2019-03-11 05:29] LABS: Hematocrit 31 % (35-47); Hemoglobin 9.3 g/dL (12.0-16.0); Mean Corpuscular HGB Conc 30 g/dL (31-36); Mean Corpuscular Hemoglobin 19 pg (27-31); Mean Corpuscular Volume 63 fL (80-97); Mean Platelet Volume 8.3 fL (7.4-10.4); Platelet Count 184 10^3/uL (150-450); Red Blood Count 4.93 10^6 /uL (3.70-4.87); Red Cell Distribution Width 19 % (10.5-15); White Blood Count 5.2 10^3/uL (3.5-10.8)
[2019-03-11 05:47] LABS: BUN/Creatinine Ratio 15.7 (8-20); Calcium 8.5 mg/dL (8.6-10.3); EGFR African American 43.3 (>60); EGFR Non-African American 35.8 (>60); Potassium 3.3 mmol/L (3.5-5.0)
[2019-03-11] MEDS: Allopurinol TAB* 100 MG PO SCH (08:11)
[2019-03-11] MEDS: Losartan TAB* 25 MG PO SCH (08:11)
[2019-03-11] MEDS: Apixaban* 5 MG TAB PO SCH ×2 (08:11→20:46)
[2019-03-11] MEDS: Amiodarone TAB* 200 MG PO SCH (08:11)
[2019-03-11] MEDS: Furosemide IV* 10 MG/ML VIAL (40 MG) IV SLOW PU SCH ×2 (08:11→16:18)
[2019-03-11] MEDS: Sertraline* 50 MG TAB PO SCH (08:11)
[2019-03-11] MEDS: Metoprolol Succinate XL TAB* 50 MG PO SCH (08:12)
[2019-03-11] MEDS: Levalbuterol 1.25MG/0.5ML NEB INH PRN (10:56)
[2019-03-11 15:03] LABS: Urine Appearance Clear; Urine Bilirubin Negative (Negative); Urine Blood Negative (Negative); Urine Color Straw; Urine Glucose Negative (Negative); Urine Ketones Negative (Negative); Urine Nitrite Negative (Negative); Urine Protein Negative (Negative); Urine Specific Gravity 1.006 (1.010-1.030); Urine Urobilinogen Negative (Negative)
--- NOTE | 2019-03-11 16:07 | PN ---
Subjective Date of Service: 03/11/19 Interval History: Pt still continues to have wheeze, SOB, cough. Denies fever and is afebrile without leukocytosis. She states she is very tired today. She has had no recent BM. Objective Active Medications: Acetaminophen (Tylenol Tab*) 650 mg PO Q6H PRN PRN Reason: FEVER/PAIN Allopurinol (Zyloprim Tab*) 100 mg PO DAILY [facility] Last Admin: 03/11/19 08:11 Dose: 100 mg Amiodarone HCl (Cordarone Tab*) 200 mg PO QAM [facility] Last Admin: 03/11/19 08:11 Dose: 200 mg Apixaban (Eliquis*) 5 mg PO BID [facility] Last Admin: 03/11/19 08:11 Dose: 5 mg Atorvastatin Calcium (Lipitor*) 40 mg PO QPM [facility] Last Admin: 03/10/19 16:58 Dose: 40 mg Furosemide (Lasix Iv*) 40 mg IV SLOW PU 0800,1700 [facility] Last Admin: 03/11/19 08:11 Dose: 40 mg Levalbuterol HCl (Xopenex 1.25 Mg/0.5 Ml Neb.Rivka*) 1.25 mg INH Q6H PRN PRN Reason: SOB/WHEEZING Last Admin: 03/11/19 10:56 Dose: 1.25 mg Levothyroxine Sodium (Synthroid Tab*) 125 mcg PO 0600 [facility] Last Admin: 03/11/19 05:20 Dose: 125 mcg Losartan Potassium (Cozaar Tab*) 100 mg PO DAILY [facility] Last Admin: 03/11/19 08:11 Dose: 100 mg Melatonin (Melatonin) 3 mg PO BEDTIME [facility] Last Admin: 03/10/19 21:11 Dose: 3 mg Metoprolol Succinate (Toprol Xl Tab*) 50 mg PO DAILY [facility] Last Admin: 03/11/19 08:12 Dose: Not Given Metoprolol Tartrate (Lopressor Iv*) 5 mg IV Q6H PRN PRN Reason: BLOOD PRESSURE Last Admin: 03/09/19 03:52 Dose: 5 mg Ondansetron HCl (Zofran Inj*) 4 mg IV Q6H PRN PRN Reason: NAUSEA Last Admin: 03/09/19 02:39 Dose: 4 mg Sertraline HCl (Zoloft*) 50 mg PO DAILY [facility] Last Admin: 03/11/19 08:11 Dose: 50 mg Vital Signs - 8 hr 03/11/19 03/11/19 03/11/19 08:00 08:09 10:55 Temperature 98.1 F Pulse Rate 44 45 Respiratory 20 Rate Blood Pressure 167/59 (mmHg) O2 Sat by Pulse 100 100 Oximetry 03/11/19 11:41 Temperature 98.8 F Pulse Rate 45 Respiratory 20 Rate Blood Pressure 135/55 (mmHg) O2 Sat by Pulse 99 Oximetry Oxygen Devices in Use Now: Nasal Cannula Appearance: Pt is sitting in bed with HOB elevated. She appears tired and chronically ill, but not acute distress. Eyes: No Scleral Icterus, PERRLA Ears/Nose/Mouth/Throat: NL Teeth, Lips, Gums, Clear Oropharnyx, Mucous Membranes Moist Neck: NL Appearance and Movements; NL JVP, Trachea Midline Respiratory: Symmetrical Chest Expansion and Respiratory Effort - Wheeze and rhonchi throughout b/l lungs Cardiovascular: NL Sounds; No Murmurs; No JVD, RRR, No Edema Abdominal: NL Sounds; No Tenderness; No Distention, No Hepatosplenomegaly Extremities: No Edema, No Clubbing, Cyanosis Neurological: Alert and Oriented x 3 Result Diagrams: 03/12/19 05:42 03/12/19 05:42 Microbiology and Other Data: Microbiology 03/08/19 11:51 Aerobic Blood Culture - Preliminary Blood Venous No Growth Day 1 Anaerobic Blood Culture - Preliminary No Growth Day 1 03/08/19 11:36 Aerobic Blood Culture - Preliminary Blood Venous No Growth Day 1 Anaerobic Blood Culture - Preliminary No Growth Day 1 Diagnostic Imaging: Patient Name: ELVIA SAHU Medical Record#: [id number] Ordering Physician: Jonathan PÉREZ Acct.#: [id number] : 1935 Age: 84 Sex: F Location: [address] [place] [address] MEDICAL/TELEMETRY Exam Date: 03/08/191906 ADM Status: ADM IN Order Information: CTA CHEST Accession Number: [id number] CPT: 62440 EXAM: CT Angiography Chest With Contrast EXAM DATE/TIME: 03/08/2019 9:27 PM CLINICAL HISTORY: 84 years old, female; Signs and symptoms; Shortness of breath; Additional info: Elevated troponin, SOB, rv pressure overload TECHNIQUE: Imaging protocol: Axial computed tomographic angiography images of the chest with intravenous contrast using CT angiography protocol. Coronal and sagittal reformatted images were created and reviewed. 3D rendering: MIP reconstructed images were created and reviewed. Radiation optimization: All CT scans at this facility use at least one of these dose optimization techniques: automated exposure control; mA and/or kV adjustment per patient size (includes targeted exams where dose is matched to clinical indication); or iterative reconstruction. Contrast material: VISIPAQUE 320; Contrast volume: 82 ml; Contrast route: IV; COMPARISON: CTA CHEST CTA CHEST 05/02/2018 10:47 AM FINDINGS: Pulmonary arteries: No evidence of acute pulmonary embolic disease. On the previous CT scan of 05/02/2018, there was a subsegmental defect involving the left lower lobe pulmonary artery. This is not seen on the current study. Aorta: Atheromatous changes involving the thoracic aorta. Ectasia of the ascending aorta and measures 4.4 cm. this ends at the right innominate artery. The descending thoracic aorta below the renetta measures 3 cm. Lungs: No pulmonary consolidation. Pleural space: Small right pleural effusion with associated atelectasis. Heart: Cardiomegaly. Moderate coronary calcification. No pericardial effusion or thickening. Lymph nodes: No mediastinal adenopathy. Bones/joints: The thoracic cage is intact. Spondylotic changes of the thoracic spine. Anterior bridging osteophyte at the mid to lower thoracic spine. No evidence of a fracture or pathologic subluxation. Soft tissues: Unremarkable. IMPRESSION: 1. No evidence of acute pulmonary embolic disease. The previously noted subsegmental defect in left lower lung has cleared. 2. Small right pleural effusion which is new since the prior CT scan associated with basilar atelectasis. 3. Cardiomegaly. 4. Ectasia of the ascending aorta measuring approximately 4.4 cm. Recommend yearly followup. *[facility]* [place] [address] Fax #: [phone] Transthoracic Echocardiogram Patient: Los, Height: 68 in / Elvia M 172.7 cm : 1935 Weight: 204.6 lb / Study Date: 03/08/2019 93 kg Age: 84 BP: 162 / 71 Gender: F BMI/BSA: 31.2 kg/m^2 HR: 56 bpm / 2.07 m^2 *Tool Mechanic: * Jaquelin Mercedes [facility] *Referring Physician: * Jonathan Ruiz *Reading Physician: * Dariela Bergeron MD Indications: Congestive Heart Failure. History: Coronary artery disease. Congestive heart failure. PMH: Myocardial infarction. Risk factors: Hypertension. Diabetes mellitus. Labs, prior tests, procedures, and surgery: Catheterization with coronary intervention. Conclusions Summary: 1. Left ventricle: The cavity size is normal. Wall thickness is moderately increased. Systolic function is normal. The estimated ejection fraction is 50-55%. Features are consistent with a pseudonormal left ventricular filling pattern, with concomitant abnormal relaxation and increased filling pressure (grade 2 diastolic dysfunction). 2. Right ventricle: The cavity size is normal. Wall thickness is moderately increased. Systolic pressure is severely increased. The estimated peak pressure is 71 mm Hg. 3. Mitral valve: There is mild regurgitation. 4. Tricuspid valve: There is mild regurgitation. 5. Ascending aorta: The ascending aorta is mildly dilated: 3.9 cm. 6. Compared with prior echocardiogram of 09/19/18, prior ejection fraction was 40-45%, mitral regurgitation and tricuspid regurgitation are stable, elevated pulmonary artery pressure is new. Ascending aorta previously measured at 4.2 cm. Assess/Plan/Problems-Billing Assessment: This is an 84 year old female with history of CAD, PAF, chronic diastolic HF that presented to the ER with complaints of shortness of breath and fatigue, found to be in acutely decompensated heart failure. - Patient Problems (1) Acute on chronic diastolic (congestive) heart failure Comment: -BNP trending down; weight down appx 3#, no LE edema, lung still with rhonchi, wheeze -CXR ordered due to no improvement in lung exam - Increased O2 requirement (uses PRN and at night only at home, now on continuous) - Continue IV lasix daily - Continue strict I&O, daily weights and low sodium diet - ECHO as above, no signficant changes, may consider cardiology consult if patient decompensates, but she is currently hemodynamically stable (2) Hypokalemia Comment: -Repleted -recheck in am (3) Acute respiratory failure with hypoxemia Comment: - 2/2 acute on chronic diastolic HF - Demand ischemia noted with mildly elevated trops that have peaked at 0.08 - Wean O2 as tolerated, may have additional O2 needs at discharge (4) CKD (chronic kidney disease) Comment: - Renal function at basline, monitor while diuresing (5) PAF (paroxysmal atrial fibrillation) Comment: - Currently sinus debbi - Metoprolol with hold parameters - amio and eliquis (6) History of coronary artery disease Comment: - PCI/stents in the past - No chest pain - continue statin, BB, ARB (7) DVT prophylaxis Comment: - On apixaban (8) DNR (do not resuscitate) Status and Disposition: Inpatient for IV diuresis and stabilization.
[2019-03-11] MEDS: Atorvastatin* 40 MG TAB PO SCH (16:18)
[2019-03-11] MEDS ORDERED: Magnesium Hydroxide LIQ* 30 ML UDC PO PRN (18:19)
[2019-03-11] MEDS ORDERED: Senna TAB PO PRN (18:19)
[2019-03-11] MEDS ORDERED: Polyethylene Glycol 3350* 17 GM PACKET PO PRN (18:19)
[2019-03-11] MEDS ORDERED: Docusate CAP* 100 MG PO PRN (18:19)
[2019-03-11] MEDS: Melatonin 3 MG TAB PO SCH (20:46)
[2019-03-12 06:09] LABS: Hematocrit 31 % (35-47); Hemoglobin 9.2 g/dL (12.0-16.0); Mean Corpuscular HGB Conc 30 g/dL (31-36); Mean Corpuscular Hemoglobin 19 pg (27-31); Mean Corpuscular Volume 63 fL (80-97); Mean Platelet Volume 8.4 fL (7.4-10.4); Platelet Count 178 10^3/uL (150-450); Red Blood Count 4.87 10^6 /uL (3.70-4.87); Red Cell Distribution Width 18 % (10.5-15); White Blood Count 4.4 10^3/uL (3.5-10.8)
[2019-03-12 06:24] LABS: BUN/Creatinine Ratio 19.1 (8-20); Calcium 8.7 mg/dL (8.6-10.3); EGFR African American 44.8 (>60); Potassium 3.2 mmol/L (3.5-5.0)
[2019-03-12] MEDS: Levothyroxine TAB* 125 MCG TAB PO SCH (07:41)
[2019-03-12] MEDS: Metoprolol Succinate XL TAB* 50 MG PO SCH (07:43)
[2019-03-12] MEDS: Sertraline* 50 MG TAB PO SCH (07:44)
[2019-03-12] MEDS: Allopurinol TAB* 100 MG PO SCH (07:44)
[2019-03-12] MEDS: Apixaban* 5 MG TAB PO SCH ×2 (07:44→20:03)
[2019-03-12] MEDS: Losartan TAB* 25 MG PO SCH (07:45)
[2019-03-12] MEDS: Amiodarone TAB* 200 MG PO SCH (07:45)
[2019-03-12] MEDS: Furosemide IV* 10 MG/ML VIAL (40 MG) IV SLOW PU SCH ×2 (07:45→16:36)
[2019-03-12] MEDS ORDERED: Potassium Chlor TAB* 20 MEQ TAB.ER PO ONE (11:36)
[2019-03-12] MEDS ORDERED: KCL 20 MEQ/100 ML IVPREMIX* 20 MEQ/100 ML BAG IV ONE (11:36)
[2019-03-12] MEDS ORDERED: Furosemide IV* 10 MG/ML 2 ML VIAL (20 MG) IV ONE (11:39)
--- NOTE | 2019-03-12 11:49 | PN ---
Subjective Date of Service: 03/12/19 Interval History: Ms. Madison is feeling fine this morning. She offers no complaints. She is laying in bed in my exam and not actively participating in conversation. Denies CP, SOB, N/V. No concerns from nursing, but nursing reports that family feels as though she is more lethargic than usual. Family History: Unchanged from Admission Social History: Unchanged from Admission Past Medical History: Unchanged from Admission Objective Active Medications: Acetaminophen (Tylenol Tab*) 650 mg PO Q6H PRN FEVER/PAIN Allopurinol (Zyloprim Tab*) 100 mg PO DAILY [facility] Amiodarone HCl (Cordarone Tab*) 200 mg PO QAM [facility] Apixaban (Eliquis*) 5 mg PO BID [facility] Atorvastatin Calcium (Lipitor*) 40 mg PO QPM [facility] Docusate Sodium (Colace Cap*) 100 mg PO BID PRN CONSTIPATION Furosemide (Lasix Iv*) 60 mg IV SLOW PU 0800,1700 [facility] Furosemide (Lasix Iv*) 20 mg IV ONCE ONE Potassium Chloride (Potassium Chloride 20 Meq/100 Ml Ivpremix*) 20 meq in 100 mls @ 50 mls/hr IV ONCE ONE Levalbuterol HCl (Xopenex 1.25 Mg/0.5 Ml Neb.Rivka*) 1.25 mg INH Q6H PRN SOB/ WHEEZING Levothyroxine Sodium (Synthroid Tab*) 125 mcg PO 0600 [facility] Losartan Potassium (Cozaar Tab*) 100 mg PO DAILY [facility] Magnesium Hydroxide (Milk Of Magnesia Liq*) 30 ml PO BID PRN CONSTIPATION Melatonin (Melatonin) 3 mg PO BEDTIME [facility] Metoprolol Succinate (Toprol Xl Tab*) 37.5 mg PO DAILY [facility] Ondansetron HCl (Zofran Inj*) 4 mg IV Q6H PRN NAUSEA Polyethylene Glycol/Electrolytes (Miralax*) 17 gm PO DAILY PRN CONSTIPATION Senna (Senokot Tab*) 1 tab PO BEDTIME PRN CONSTIPATION Sertraline HCl (Zoloft*) 50 mg PO DAILY [facility] Vital Signs - 8 hr 03/12/19 03/12/19 03/12/19 03:43 06:38 07:44 Temperature 97.7 F 98.3 F Pulse Rate 53 49 Respiratory 22 20 20 Rate Blood Pressure 156/62 175/69 (mmHg) O2 Sat by Pulse 94 99 Oximetry Oxygen Devices in Use Now: Nasal Cannula - 2L Appearance: Elderly female laying in bed in NAD Eyes: No Scleral Icterus Ears/Nose/Mouth/Throat: Mucous Membranes Moist Neck: NL Appearance and Movements; NL JVP, Trachea Midline Respiratory: Symmetrical Chest Expansion and Respiratory Effort, - - Scaterred wheezing and rhonchi Cardiovascular: NL Sounds; No Murmurs; No JVD Abdominal: NL Sounds; No Tenderness; No Distention Extremities: No Edema Neurological: Alert and Oriented x 3 Lines/Tubes/Other Access: Clean, Dry and Intact Peripheral IV Nutrition: Taking PO's Result Diagrams: 03/12/19 05:42 03/12/19 05:42 Assess/Plan/Problems-Billing Assessment: Ms. Madison is an 84 yo F with PMH of CAD, PAF, chronic dHF; who presented to the ER with complaints of shortness of breath and fatigue, found to be in acutely decompensated heart failure. - Patient Problems (1) Acute on chronic diastolic (congestive) heart failure Code(s): I50.33 - ACUTE ON CHRONIC DIASTOLIC (CONGESTIVE) HEART FAILURE Comment: - Scattered rhonchi but no LE edema - Net loss approx 1300mL this admission - BNP 1100 on admission, now down to 200 - Echo shows EF 50-55%, diastolic dysfunciton - CXR yesterday shows resolution of vascular congestion and interstitial edema - Daily weights, strict I&O - Increase Lasix to 60mg IV BID (2) Acute and chronic respiratory failure with hypoxia Code(s): J96.21 - ACUTE AND CHRONIC RESPIRATORY FAILURE WITH HYPOXIA Comment: - Secondary to acute on chronic dHF - Increased O2 requirement (uses PRN and at night at home, now requiring continuous) - Wean O2 as tolerated; may have additional O2 needs at discharge (3) Hypokalemia Code(s): E87.6 - HYPOKALEMIA Comment: - Secondary to diuretics - Replete and recheck in AM (4) PAF (paroxysmal atrial fibrillation) Code(s): I48.0 - PAROXYSMAL ATRIAL FIBRILLATION Comment: - Currently sinus debbi - Continue amiodarone, Eliquis; decrease metoprolol (5) CAD (coronary artery disease) Code(s): I25.10 - ATHSCL HEART DISEASE OF [place] CORONARY ARTERY W/O ANG PCTRS Comment: - Stenting in the past - Continue atorvastatin, metoprolol (6) Stage 3 chronic kidney disease Code(s): N18.3 - CHRONIC KIDNEY DISEASE, STAGE 3 (MODERATE) Comment: - Creatinine at baseline - Will continue to trend creatinine d/t high dose diuretics (7) Hypothyroidism Code(s): E03.9 - HYPOTHYROIDISM, UNSPECIFIED Comment: - Continue levothyroxine (8) DVT prophylaxis Comment: - Eliquis (9) Full code status Code(s): Z78.9 - OTHER SPECIFIED HEALTH STATUS Comment: Status and Disposition: Inpatient. Anticipate d/c home when medically stable. Attending: Yenny Abernathy
[2019-03-12] MEDS: Atorvastatin* 40 MG TAB PO SCH (16:36)
[2019-03-12] MEDS: Melatonin 3 MG TAB PO SCH (20:03)
[2019-03-13] MEDS: Levothyroxine TAB* 125 MCG TAB PO SCH (05:35)
[2019-03-13 07:59] LABS: BUN/Creatinine Ratio 18.4 (8-20); EGFR African American 44.8 (>60); Potassium 3.6 mmol/L (3.5-5.0)
[2019-03-13] MEDS: Furosemide IV* 10 MG/ML VIAL (40 MG) IV SLOW PU SCH ×2 (08:47→16:20)
[2019-03-13] MEDS: Losartan TAB* 25 MG PO SCH (08:54)
[2019-03-13] MEDS: Apixaban* 5 MG TAB PO SCH ×2 (08:56→20:37)
[2019-03-13] MEDS: Sertraline* 50 MG TAB PO SCH (08:56)
[2019-03-13] MEDS: Amiodarone TAB* 200 MG PO SCH (08:57)
[2019-03-13] MEDS: Allopurinol TAB* 100 MG PO SCH (08:58)
[2019-03-13] MEDS ORDERED: Metoprolol Succinate XL TAB* 25 MG PO SCH (09:00)
[2019-03-13] MEDS: Potassium Chlor TAB* 20 MEQ TAB.ER PO SCH ×2 (09:01→20:37)
--- NOTE | 2019-03-13 16:37 | PN ---
Subjective Date of Service: 03/13/19 Interval History: Ms. Madison is feeling much better this morning. She is not feeling nearly as tired as she was yesterday. Her family at the bedside agrees that she looks much better than yesterday. She denies CP, SOB, N/V. Has been up ambulating to the bathroom, but not any further. She denies SOB on exertion. No concerns from nursing. Family History: Unchanged from Admission Social History: Unchanged from Admission Past Medical History: Unchanged from Admission Objective Active Medications: Acetaminophen (Tylenol Tab*) 650 mg PO Q6H PRN FEVER/PAIN Allopurinol (Zyloprim Tab*) 100 mg PO DAILY [facility] Amiodarone HCl (Cordarone Tab*) 200 mg PO QAM [facility] Apixaban (Eliquis*) 5 mg PO BID [facility] Atorvastatin Calcium (Lipitor*) 40 mg PO QPM [facility] Docusate Sodium (Colace Cap*) 100 mg PO BID PRN CONSTIPATION Furosemide (Lasix Iv*) 60 mg IV SLOW PU 0800,1700 [facility] Levalbuterol HCl (Xopenex 1.25 Mg/0.5 Ml Neb.Rivka*) 1.25 mg INH Q6H PRN SOB/ WHEEZING Levothyroxine Sodium (Synthroid Tab*) 125 mcg PO 0600 [facility] Losartan Potassium (Cozaar Tab*) 100 mg PO DAILY [facility] Magnesium Hydroxide (Milk Of Magnesia Liq*) 30 ml PO BID PRN CONSTIPATION Melatonin (Melatonin) 3 mg PO BEDTIME [facility] Metoprolol Succinate (Toprol Xl Tab*) 37.5 mg PO DAILY [facility] Ondansetron HCl (Zofran Inj*) 4 mg IV Q6H PRN NAUSEA Polyethylene Glycol/Electrolytes (Miralax*) 17 gm PO DAILY PRN CONSTIPATION Potassium Chloride (Klor Con Er Tab*) 20 meq PO BID [facility] Senna (Senokot Tab*) 1 tab PO BEDTIME PRN CONSTIPATION Sertraline HCl (Zoloft*) 50 mg PO DAILY [facility] Vital Signs - 8 hr 03/13/19 03/13/19 11:03 15:21 Temperature 97.4 F 97 F Pulse Rate 45 52 Respiratory 20 24 Rate Blood Pressure 154/53 145/58 (mmHg) O2 Sat by Pulse 97 98 Oximetry Oxygen Devices in Use Now: Nasal Cannula - 2L Appearance: Elderly female laying in bed in NAD Eyes: No Scleral Icterus Ears/Nose/Mouth/Throat: Mucous Membranes Moist Neck: NL Appearance and Movements; NL JVP, Trachea Midline Respiratory: Symmetrical Chest Expansion and Respiratory Effort, - - Crackles to bilat bases, otherwise clear Cardiovascular: NL Sounds; No Murmurs; No JVD Abdominal: NL Sounds; No Tenderness; No Distention Extremities: No Edema Neurological: Alert and Oriented x 3 Lines/Tubes/Other Access: Clean, Dry and Intact Peripheral IV Nutrition: Taking PO's Result Diagrams: 03/12/19 05:42 03/13/19 07:09 Assess/Plan/Problems-Billing Assessment: Ms. Madison is an 84 yo F with PMH of CAD, PAF, chronic dHF; who presented to the ER with complaints of shortness of breath and fatigue, found to be in acutely decompensated heart failure. - Patient Problems (1) Acute on chronic diastolic (congestive) heart failure Code(s): I50.33 - ACUTE ON CHRONIC DIASTOLIC (CONGESTIVE) HEART FAILURE Comment: - Scattered rhonchi but no LE edema - Net loss approx 1300mL this admission - BNP 1100 on admission, now down to 200 - Echo shows EF 50-55%, diastolic dysfunciton - CXR yesterday shows resolution of vascular congestion and interstitial edema - Daily weights, strict I&O - Continue Lasix (2) Acute and chronic respiratory failure with hypoxia Code(s): J96.21 - ACUTE AND CHRONIC RESPIRATORY FAILURE WITH HYPOXIA Comment: - Secondary to acute on chronic dHF - Increased O2 requirement (uses PRN and at night at home, now requiring continuous) - Wean O2 as tolerated; may have additional O2 needs at discharge (3) Hypokalemia Code(s): E87.6 - HYPOKALEMIA Comment: - Secondary to diuretics - Replete and recheck in AM (4) PAF (paroxysmal atrial fibrillation) Code(s): I48.0 - PAROXYSMAL ATRIAL FIBRILLATION Comment: - Currently sinus debbi - Continue amiodarone, Eliquis, metoprolol (5) CAD (coronary artery disease) Code(s): I25.10 - ATHSCL HEART DISEASE OF [place] CORONARY ARTERY W/O ANG PCTRS Comment: - Stenting in the past - Continue atorvastatin, metoprolol (6) Stage 3 chronic kidney disease Code(s): N18.3 - CHRONIC KIDNEY DISEASE, STAGE 3 (MODERATE) Comment: - Creatinine at baseline - Will continue to trend creatinine d/t high dose diuretics (7) Hypothyroidism Code(s): E03.9 - HYPOTHYROIDISM, UNSPECIFIED Comment: - Continue levothyroxine (8) DVT prophylaxis Comment: - Eliquis (9) Full code status Code(s): Z78.9 - OTHER SPECIFIED HEALTH STATUS Comment: Status and Disposition: Inpatient. Anticipate d/c home when medically stable, hopefully tomorrow. Attending: Yenny Abernathy
[2019-03-13] MEDS: Atorvastatin* 40 MG TAB PO SCH (17:38)
[2019-03-13] MEDS: Melatonin 3 MG TAB PO SCH (20:37)
[2019-03-14] MEDS: Levothyroxine TAB* 125 MCG TAB PO SCH (05:38)
[2019-03-14 07:22] LABS: BUN/Creatinine Ratio 18.8 (8-20); Calcium 9.3 mg/dL (8.6-10.3); EGFR African American 44.1 (>60); EGFR Non-African American 36.4 (>60); Potassium 3.9 mmol/L (3.5-5.0)
[2019-03-14 08:17] VITALS: BP 152/62
[2019-03-14] MEDS: Potassium Chlor TAB* 20 MEQ TAB.ER PO SCH (08:24)
[2019-03-14] MEDS: Allopurinol TAB* 100 MG PO SCH (08:24)
[2019-03-14] MEDS: Losartan TAB* 25 MG PO SCH (08:24)
[2019-03-14] MEDS: Sertraline* 50 MG TAB PO SCH (08:24)
[2019-03-14] MEDS: Amiodarone TAB* 200 MG PO SCH (08:25)
[2019-03-14] MEDS: Apixaban* 5 MG TAB PO SCH (08:25)
[2019-03-14] MEDS: Furosemide IV* 10 MG/ML VIAL (40 MG) IV SLOW PU SCH (08:25)
--- NOTE | 2019-03-14 22:52 | DS ---
CC: Dr. Kathy Forde; Dr. Dwaine Vazquez * DISCHARGE SUMMARY: DATE OF ADMISSION: 03/08/19 DATE OF DISCHARGE: 03/14/19 PRIMARY CARE PROVIDER: Dr. Kathy Forde. BARREL CLEANER: Dr. Dwaine Vazquez. ATTENDING PHYSICIAN: Dr. Zaina East * (dictated by Gill Sifuentes NP). PRIMARY DIAGNOSES: 1. Acute on chronic diastolic congestive heart failure. 2. Acute on chronic hypoxic respiratory failure. 3. Hypokalemia. SECONDARY DIAGNOSES: 1. Paroxysmal atrial fibrillation. 2. Coronary artery disease. 3. Chronic kidney disease, stage 3. 4. Hypothyroidism. STUDIES WHILE IN THE HOSPITAL: Chest x-rays on 03/08/19 reads as mild pulmonary vascular congestion and interstitial edema. EKG on 03/08/19 shows normal sinus rhythm with a rate of 66, QTc 525. No ischemic changes. Transthoracic echocardiogram on 03/08/19 reads as, left ventricular: The cavity size is normal. Wall thickness is moderately increased. Systolic pressure is normal. The estimated ejection fraction was 50% to 55%. Features are consistent with a pseudonormal left ventricular filling pattern with concomitant abnormal relaxation and increased filling pressure (grade 2 diastolic dysfunction). Right ventricular: The cavity size is normal. Wall thickness is moderately increased. Systolic pressure is severely increased. The estimated peak pressure is 71 mmHg. Mitral valve: There is mild regurgitation. Tricuspid valve: There is mild regurgitation. Ascending aorta: The ascending aorta is mildly dilated at 3.9 cm. Compared with prior echo of 10/25, prior ejection fraction was 40% to 45%, mild mitral regurgitation and tricuspid regurgitation are stable, elevated pulmonary artery pressure is new, ascending aorta previously measured at 4.2 cm. Chest thorax CTA on 03/08/19 reads as no evidence of acute pulmonary embolic disease. The previously noted subsegmental defect in the left lower lung has cleared. Small right pleural effusion, which is new since the prior CT scan associated with basilar atelectasis. Cardiomegaly. Ectasia of the ascending aorta measuring approximately 4.4 cm. Recommend yearly followup. EKG on 03/09/19 shows sinus bradycardia with a rate of 57, first degree AV block , QTc 472, no ischemic changes. Chest x-rays on 03/11/19 reads no evidence for acute findings. Cardiomegaly unchanged. HISTORY OF PRESENT ILLNESS AND HOSPITAL COURSE: Ms. Madison is an 84-year-old female with a past medical history of diastolic congestive heart failure, hypertension, obstructive sleep apnea, type 2 diabetes, hypothyroidism, paroxysmal atrial fibrillation, and stage 3 chronic kidney disease, who presented to the emergency room on 03/08/19 with complaints of shortness of breath. Please see the history and physical by BETO Rush for complete summary of the events leading up to this hospitalization. In short, the patient reported approximately 1 day of shortness of breath prior to presentation, though family notes that they noted she was generally weak and not quite acting like herself for at least a week prior to presentation. The patient had decreased exercise tolerance. In the emergency room, she had imaging as noted above. She had lab work, which was remarkable for a microcytic hypochromic anemia, which is consistent with her baseline. A mildly elevated troponin of 0.04 and an elevated BNP at 1100. Because of the concern for CHF exacerbation, she was admitted by the hospital service. The patient was started on IV Lasix and admitted to the telemetry floor. It was felt as though she may have a viral bronchitis, which necessitated only supportive treatment. The patient was noted to have acute on chronic hypoxic respiratory failure and she was requiring 2 L of oxygen to maintain saturations in the 90s. I will note that the patient typically uses oxygen at night and p.r.n. at home, but is not normally on continuous oxygen. The patient continued to gradually improve with IV Lasix. At that point, she had been getting 40 mg b.i.d. when I saw the patient first on 03/12/19, I increased the Lasix to 60 mg IV b.i.d. and at that point, I saw a rapid improvement in her status. The patient this morning reported feeling much better and back at her baseline. She was much more alert and able to converse with me more than she had when I had first seen her. The patient's family also felt as though she looked much more at her baseline and not as drowsy and lethargic as she previously had been. The patient previously had rales in bilateral bases, though as of today, lung sounds are clear throughout and she is saturating well. Heart has a regular rhythm without murmurs, rubs or gallops. I will note that the patient has been noted to be bradycardiac here in the hospital with her rates in the 40s and 50s, though she has been asymptomatic. Her metoprolol has been held while here in the hospital for this reason. She has not had any rebound hypertension from withdrawal of her beta julio and she has been asymptomatic. She has been up and ambulating without difficulty and was evaluated by physical therapy, who noted that she did quite well and did not have any physical therapy needs. The patient is anxious to return home. Ms. Madison is stable for discharge today. Vital signs are as follows: Temp 96.9 , heart rate 50, respiratory rate 18, oxygen saturation 99% on 1 L nasal cannula , blood pressure 152/62. DISCHARGE MEDICATIONS: New medication: 1. Potassium chloride 20 mEq p.o. daily. Changed medication: 1. Furosemide 40 mg p.o. daily. (Previously was 20 mg daily) Continued medications 1. Allopurinol 100 mg p.o. daily. 2. Amiodarone 200 mg p.o. daily. 3. Apixaban 5 mg p.o. b.i.d. 4. Atorvastatin 40 mg p.o. daily. 5. Irbesartan 300 mg p.o. daily. 6. Levothyroxine 125 mcg p.o. daily. 7. Melatonin 1 tab p.o. at bedtime. 8. Sertraline 50 mg p.o. daily. Discontinued medications Metoprolol. DISCHARGE PLAN: Ms. Madison will be discharged to home. Activity will be as tolerated. Diet will be heart healthy, low sodium. Medications are noted above. I have increased the patient's home Lasix dosing. They do think she requires a dose of this on a regular basis. I will also start her on potassium as she has needed potassium supplementation while here in the hospital and I am increasing her loop diuretics. As I mentioned above, I am discontinuing her metoprolol at this time due to bradycardia. She has been off this medication while here in the hospital, so I am not concerned about any rebound hypertension after the patient returns home. She can continue other usual medications as noted above and I have not made any further changes. I did speak at length with the patient and her daughter about congestive heart failure and the signs and symptoms of exacerbation. The patient has been instructed to weigh herself daily and to keep a record of her weight and to contact her doctor for more than a 2-pound weight gain for more than 1 day in a row. She has also been instructed to check her oxygen saturation, especially if she is feeling short of breath and to monitor for any edema. She has been referred to visiting nurse services by our case management department. She should follow up with her primary care provider in 4 to 7 days. She will need to follow up with her vp strategy in the next few weeks. As I am discontinuing her metoprolol, her bradycardia may need to be further evaluated. She should return to the emergency room or nearest hospital for any worsening of symptoms, shortness of breath, lightheadedness, dizziness, chest discomfort, high fevers, chills, night sweats, loss of consciousness or any worrisome signs or symptoms. DISCHARGE CONDITION: Stable. DISCHARGE DISPOSITION: Home. This is a summarized report of a complex medical history and hospital stay. For further details, please see the entire medical record. TIME SPENT: Approximately 45 minutes was spent on this discharge. GILL SIFUENTES NP [id number]/CPS #: [id number]
== END 2019-03-14 11:00 | disposition home or self-care (01) | DRG 291 ==
LOC: ED 11:07 → MEDTELE 13:50 → UNDOADMIN 13:50
PROVIDERS: ADMIT Internal Medicine; ATTEND Hospitalist
DX: I13.0 Hypertensive heart and chronic kidney disease with heart failure and stage 1 through stage 4 chronic kidney disease, or unspecified chronic kidney disease (principal); I50.33 Acute on chronic diastolic (congestive) heart failure; J96.21 Acute and chronic respiratory failure with hypoxia; E87.6 Hypokalemia; N18.3 Chronic kidney disease, stage 3 (moderate); Z66 Do not resuscitate; E03.9 Hypothyroidism, unspecified; I34.0 Nonrheumatic mitral (valve) insufficiency; I44.0 Atrioventricular block, first degree; E11.22 Type 2 diabetes mellitus with diabetic chronic kidney disease; G47.33 Obstructive sleep apnea (adult) (pediatric); I48.0 Paroxysmal atrial fibrillation; D50.9 Iron deficiency anemia, unspecified; I25.10 Atherosclerotic heart disease of native coronary artery without angina pectoris; M17.0 Bilateral primary osteoarthritis of knee; F32.9 Major depressive disorder, single episode, unspecified; I45.81 Long QT syndrome; D56.9 Thalassemia, unspecified; M10.9 Gout, unspecified; I45.10 Unspecified right bundle-branch block; I49.1 Atrial premature depolarization; I25.2 Old myocardial infarction; Y92.239 Unspecified place in hospital as the place of occurrence of the external cause; T50.2X5A Adverse effect of carbonic-anhydrase inhibitors, benzothiadiazides and other diuretics, initial encounter; Z99.81 Dependence on supplemental oxygen; J20.8 Acute bronchitis due to other specified organisms; Z79.01 Long term (current) use of anticoagulants; Z79.890 Hormone replacement therapy; Z88.8 Allergy status to other drugs, medicaments and biological substances; Z95.5 Presence of coronary angioplasty implant and graft; Z90.710 Acquired absence of both cervix and uterus; Z82.49 Family history of ischemic heart disease and other diseases of the circulatory system; Z90.49 Acquired absence of other specified parts of digestive tract; Z82.0 Family history of epilepsy and other diseases of the nervous system; Z80.42 Family history of malignant neoplasm of prostate; Z80.1 Family history of malignant neoplasm of trachea, bronchus and lung; Z80.8 Family history of malignant neoplasm of other organs or systems
CPT/HCPCS: 36415; 71045; 71046; 71275; 80048; 80053; 81003; 81015; 82550; 83605; 83735; 83880; 84443; 84484; 85025; 85027; 85610; 85730; 87040; 93005; 93306; 94640; 99284; A9270-GY; C8929; G8978-GP-CJ; G8979-GP-CI; J0360; J1940; J2405; J3480; J3490; Q9967

== ENCOUNTER 2021-07-22 13:53 | Observation (INO) ==
[2021-07-22 14:55] LABS: Hematocrit 33 % (35-47); Hemoglobin 10.5 g/dL (12.0-16.0); Mean Corpuscular HGB Conc 32 g/dL (31-36); Mean Corpuscular Hemoglobin 21 pg (27-31); Mean Corpuscular Volume 68 fL (80-97); Mean Platelet Volume 8.9 fL (7.4-10.4); Platelet Count 192 10^3/uL (150-450); Red Blood Count 4.92 10^6 /uL (3.70-4.87); Red Cell Distribution Width 18 % (10-15); White Blood Count 7.2 10^3/uL (3.5-10.8)
[2021-07-22 15:22] LABS: Troponin I 0.03 ng/mL (<0.03)
[2021-07-22 15:28] LABS: Hypochromasia 1+; Microcytosis 2+; Polychromasia 1+
[2021-07-22 15:30] LABS: ALT 22 U/L (7-52); AST 34 U/L (13-39); Albumin 3.6 g/dL (3.2-5.2); Albumin/Globulin Ratio 1.4 (1-3); Alkaline Phosphatase 120 U/L (35-149); Anion Gap 9 mmol/L (2-11); Blood Urea Nitrogen 34 mg/dL (6-24); CO2 Carbon Dioxide 26 mmol/L (22-32); Calcium 9.3 mg/dL (8.6-10.3); Chloride 102 mmol/L (101-111); Creatine Kinase 170 U/L (10-223); EGFR African American 39.5 (>60); EGFR Non-African American 32.7 (>60); Globulin 2.5 g/dL (2-4); Glucose 155 mg/dL (70-100); Sodium 137 mmol/L (135-145); Target Cells 1+; Total Protein 6.1 g/dL (6.4-8.9)
[2021-07-22 15:31] LABS: ABS Eosinophils 0.1 10^3/ul (0-0.6); ABS Lymphocytes 0.6 10^3/ul (1.0-4.8); ABS Monocytes 0.5 10^3/ul (0-0.8); ABS Neutrophils 6.1 10^3/ul (1.5-7.7); Eosinophil % 0.8 %; Lymphocyte % 8.4 %; Nucleated Red Blood Cells % 0.1
[2021-07-22] MEDS ORDERED: Senna TAB 8.6 mg TAB PO PRN (17:04)
[2021-07-22] MEDS ORDERED: Polyethylene Glycol 3350 17 GM PACKET PO PRN (17:04)
[2021-07-22] MEDS ORDERED: Magnesium Hydroxide LIQ 30 ML UDC PO PRN (17:04)
[2021-07-22 17:48] LABS: Rapid COVID-19 Molecular Undetected (Undetected)
[2021-07-22] MEDS ORDERED: oxyCODONE/Acetamin 5/325 mg TAB PO PRN (18:00)
[2021-07-22 21:43] LABS: Troponin I 0.03 ng/mL (<0.03)
[2021-07-22] MEDS: Lidocaine PATCH 5% PATCH TRANSDERM SCH (22:57)
[2021-07-22] MEDS: oxyCODONE/Acetamin 5/325 mg TAB PO PRN (22:59)
[2021-07-23] MEDS: oxyCODONE/Acetamin 5/325 mg TAB PO PRN ×2 (04:54→10:28)
[2021-07-23] MEDS ORDERED: Nystatin TOP POWDER 15 GM BTL TOPICAL SCH (09:00)
[2021-07-23] MEDS: Lidocaine PATCH 5% PATCH TRANSDERM SCH (10:20)
[2021-07-23] MEDS ORDERED: Flu vaccine *QUAD* 2021-22* 0.5 ML SYRINGE IM ONE (12:00)
[2021-07-23 15:37] VITALS: BP 114/60
[2021-07-23] MEDS ORDERED: Lidocaine Patch REMOVE PATCH PATCH OFF SCH (21:00)
== END 2021-07-23 16:55 | disposition swing bed (61) ==
LOC: ED 13:53 → SSU 13:53
PROVIDERS: ADMIT Internal Medicine; ATTEND Internal Medicine

== ENCOUNTER 2021-07-23 16:55 | Inpatient (IN) ==
[2021-07-23] MEDS ORDERED: Senna TAB 8.6 mg TAB PO PRN (17:06)
[2021-07-23] MEDS: oxyCODONE/Acetamin 5/325 mg TAB PO PRN ×2 (17:26→21:45)
[2021-07-23] MEDS: Lidocaine Patch REMOVE PATCH PATCH OFF SCH (21:50)
[2021-07-24] MEDS: Nystatin TOP POWDER 15 GM BTL TOPICAL SCH ×4 (03:07→22:10)
[2021-07-24] MEDS: oxyCODONE/Acetamin 5/325 mg TAB PO PRN ×4 (04:41→22:08)
[2021-07-24] MEDS: Lidocaine PATCH 5% PATCH TRANSDERM SCH (09:04)
[2021-07-24] MEDS: Lidocaine Patch REMOVE PATCH PATCH OFF SCH (22:38)
[2021-07-25] MEDS: oxyCODONE/Acetamin 5/325 mg TAB PO PRN ×3 (02:46→12:47)
[2021-07-25] MEDS: Lidocaine PATCH 5% PATCH TRANSDERM SCH (07:58)
[2021-07-25] MEDS: Nystatin TOP POWDER 15 GM BTL TOPICAL SCH (07:58)
[2021-07-25 11:10] VITALS: BP 100/73
== END 2021-07-25 14:00 | DRG 563 ==
LOC: SSU 16:55 → SUATTDRO 16:55
PROVIDERS: ADMIT Internal Medicine; ATTEND Internal Medicine